=== PATIENT | male | born 1950 | race Caucasian/White ===

== ENCOUNTER → 2017-06-02 | Outpatient (CLI) | payer MEDICARE, BC ==
--- NOTE | 2017-06-02 12:40 | KCIC ---
Indication: Right hip pain. Time of exam 12:18 PM Femoral acetabular alignment is normal. The hip joint space is well maintained. The femoral head and neck are intact. No fractures are seen. IMPRESSION: No acute bony abnormality is detected. Electronically signed by: Austin Sandoval MD (06/02/2017 12:37 PM) [id number]
== END | disposition home or self-care (01) ==
LOC: KCIC 12:10
PROVIDERS: ATTEND Family Medicine
DX: M25.551 Pain in right hip (principal)
CPT/HCPCS: 73502

== ENCOUNTER 2019-10-15 20:20 | Inpatient (IN) | payer MEDICARE ==
[~2019-10-15] VITALS: Ht 170.2 cm; Wt 79.4 kg
--- NOTE | 2019-10-15 20:25 | NUR ---
Patient arrived as direct admit from [facility] Patient has Ng tube placed at in ER at [facility]. Patient has complaint of abdominal pain as well as some throat pain from the insertion of the NG tube. Pain rating is a 4 for the abdomen, and a 7 for his throat. Orders received from Dr. Shepard. Patient hooked back up suction. Patient call light was placed within reach and his bed was placed in the lowest position and locked. Will continue to monitor the patient at this time.
[2019-10-15 20:35] VITALS: BP 157/97
[2019-10-15] MEDS ORDERED: ACETAMINOPHEN 650 MG SUPP.RECT. PR PRN (21:00)
[2019-10-15] MEDS ORDERED: LABETALOL 20 MG/4 ML DISP.SYRIN. IVP PRN (21:00)
[2019-10-15] MEDS ORDERED: ONDANSETRON PF 4 MG/2 ML VIAL. IVP PRN (21:00)
[2019-10-15] MEDS ORDERED: BENZOCAINE ONE 20% MUCOSAL SPRAY. MM PRN (21:30)
[2019-10-15] MEDS: IV NORMAL SALINE 1000ML BAG 1,000 ML IV SCH (22:03)
[2019-10-15] MEDS: cefTRIAXone IV Push 1 GM VIAL. IVP SCH (22:04)
[2019-10-15] MEDS: FAMOTIDINE 20 MG/2 ML VIAL IVP SCH (22:05)
[2019-10-15] MEDS: fentaNYL PF VIAL 100 MCG/2 ML VIAL IVP PRN (22:05)
[2019-10-15] MEDS: AZITHROMYCIN 250 MG in IV NORMAL SALINE 250ML 250 ML IV SCH (22:06)
[2019-10-15] MEDS: ALBUTEROL SULFATE 2.5 MG/3 ML NEBU. NEB PRN (22:17)
[2019-10-15 23:14] VITALS: BP 159/93
[2019-10-16] MEDS: fentaNYL PF VIAL 100 MCG/2 ML VIAL IVP PRN ×7 (02:48→21:14)
[2019-10-16] MEDS: ALBUTEROL SULFATE 2.5 MG/3 ML NEBU. NEB PRN ×2 (03:00→07:40)
[2019-10-16 03:40] VITALS: BP 149/99
[2019-10-16 07:00] VITALS: BP 152/95
[2019-10-16] MEDS ORDERED: PHENOL ORAL SPRAY 177ML BOTTLE. PO PRN ×2 (07:45→08:00)
--- NOTE | 2019-10-16 08:53 | RAD ---
KUB 10/16/2019 7:38 AM INDICATION: Abdominal distention. NG placement COMPARISON: Pelvis radiograph 06/02/2017 TECHNIQUE: 2 views of abdomen are provided. FINDINGS/ IMPRESSION: 1. Nasogastric tube is identified with the side port below the level of the diaphragm. 2. Dilated large bowel loops are identified measuring up to 9.7 cm in the right colon. Left colon measures up to 6.8 cm. There may be pneumatosis coli within the sigmoid colon. Further evaluation with cross sectional imaging is recommended. Findings are concerning for large bowel obstruction. 3. Supine technique limits evaluation for free intraperitoneal air. 4. Dilated small bowel loops are present measuring up to 3.1 cm. 5. No suspicious osseous normality is identified. Visualized portions of the lungs demonstrate low lung volumes with bibasilar subsegmental atelectasis. Right hilar calcified lymphadenopathy is identified. FOR INTERNAL CODING PURPOSES Critical result: Findings discussed with the patient's nurse, Jocelyn, at 10/16/2019 8:49 AM. RESULT CODE: (C) Electronically signed by: Lynn Poole MD (10/16/2019 8:50 AM) [facility]
[2019-10-16] MEDS ORDERED: FLU VAX QS 2019-20 (36MOS+)/PF 0.5 ML SYRINGE. VAX IM ONE (09:00)
[2019-10-16] MEDS ORDERED: LABETALOL 20 MG/4 ML DISP.SYRIN. IVP PRN (09:15)
[2019-10-16 09:58] LABS: BASO % 0 % (0-3); EOS % 0 % (0-3); HEMATOCRIT 40.8 % (39.0-53.0); HEMOGLOBIN 13.3 g/dL (13.0-17.5); LYMPH # 0.5 x10^3/uL (1.0-4.8); LYMPH % 4 % (24-48); MEAN CORPUSCULAR HEMOGLOBIN 28 pg (25-35); MEAN CORPUSCULAR HGB CONC 33 g/dL (31-37); MEAN CORPUSCULAR VOLUME 85 fL (79-100); MONO # 1.9 x10^3/uL (0.0-1.1); MONO % 16 % (0-9); NEUT # 9.7 x10^3/uL (1.8-7.7); NEUT % 80 % (31-73); PLATELET COUNT 319 x10^3/uL (140-400); RED BLOOD COUNT 4.79 x10^6/uL (4.30-5.70); RED CELL DISTRIBUTION WIDTH 13.9 % (11.5-14.5)
[2019-10-16 10:00] LABS: CALCIUM 8.9 mg/dL (8.5-10.1); GFR 89.4; POTASSIUM 4.5 mmol/L (3.5-5.1)
[2019-10-16 10:06] LABS: ALBUMIN/GLOBULIN RATIO 0.8 (1.0-1.7); TOTAL BILIRUBIN 0.6 mg/dL (0.2-1.0)
[2019-10-16 10:18] LABS: PROTHROMBIN TIME PATIENT 14.1 SEC (11.7-14.0)
--- NOTE | 2019-10-16 10:33 | PDOC2 ---
CONSULT Date of Consult Date of Consult DATE: 10/16/19 TIME: 10:26 Reason for Consult Reason for Consult: colonic distention Referring Physician Referring Physician: SAM Identification/Chief Complaint Chief Complaint abdominal distention Source Source: Patient History of Present Illness Reason for Visit: Mr Ennis is an active 69 yo gentleman who looks younger than his stated age. He had not had a BM for four days and was told to use mag citrate which he did. He has had several loose stools since. Was seen in urgent care of abdominal distention and by CT there showed marked dilation of the colon proximal to the sigmoid. Plain films this AM confirm that finding. His last colonoscopy was "several years ago". His added that he "was told to come back in a year" for follow up. He is unaware of any family hx of colon cancer. Past Medical History Cardiovascular: No pertinent hx Pulmonary: No pertinent hx Past Surgical History Past Surgical History: No pertinent history Family History Family History: No Significant Social History No Drugs: None Lives: with Family Current Medications Current Medications Current Medications Acetaminophen (Tylenol Supp) 650 mg PRN Q4HRS PRN [place] TEMP OVER 100.4F OR MILD PAIN; Start 10/15/19 at 21:00 Albuterol Sulfate (Ventolin Neb Soln) 2.5 mg PRN Q4HRS PRN NEB SHORTNESS OF BREATH Last administered on 10/16/19at 07:40; Start 10/15/19 at 21:00; Stop 10/16/19 at 07:53; Status DC Sodium Chloride 1,000 ml @ 75 mls/hr [id number] IV Last administered on 10/15/19at 22:03; Start 10/15/19 at 22:00 Famotidine (Pepcid Vial) 20 mg QHS IVP Last administered on 10/15/19at 22:05; Start 10/15/19 at 21:00 Fentanyl Citrate (Fentanyl 2ml Vial) 50 mcg PRN Q2HR PRN IVP SEVERE PAIN 7-10 Last administered on 10/16/19at 10:21; Start 10/15/19 at 21:00 Ondansetron HCl (Zofran) 4 mg PRN Q6HRS PRN IVP NAUSEA/VOMITING 1ST CHOICE; Start 10/15/19 at 21:00 Labetalol HCl (Normodyne Iv Push) 10 mg PRN Q2HR PRN IVP HYPERTENSION; Start 10/15/19 at 21:00 Ceftriaxone Sodium (Rocephin) 1 gm Q24H IVP Last administered on 10/15/19at 22:04; Start 10/15/19 at 22:00 Azithromycin 250 mg/Sodium Chloride 250 ml @ 250 mls/hr Q24H IV Last administered on 10/15/19at 22:06; Start 10/15/19 at 22:00 Benzocaine (Hurricaine One) 1 spray PRN QID PRN MM PAIN Last administered on 10/15/19at 22:06; Start 10/15/19 at 21:30; Stop 10/16/19 at 07:46; Status DC Influenza Virus Vaccine Quadrival (Afluria Quad 2019-20 (3yr Up) Syringe) 0.5 ml ONCE ONCE VAX IM ; Start 10/16/19 at 09:00; Stop 10/16/19 at 09:01; Status DC Phenol (Chloraseptic) 1 spray PRN Q2HR PRN PO SORE THROAT; Start 10/16/19 at 07:45; Status Cancel Phenol (Chloraseptic) 1 spray PRN Q2HR PRN PO SORE THROAT; Start 10/16/19 at 08:00 Albuterol Sulfate (Ventolin Neb Soln) 2.5 mg Q4H NEB ; Start 10/16/19 at 12:00 Labetalol HCl (Normodyne Iv Push) 10 mg PRN Q2HR PRN IVP HYPERTENSION; Start 10/16/19 at 09:15 Allergies Allergies: Coded Allergies: No Known Drug Allergies (Unverified , 10/15/19) ROS Gastrointestinal: Yes Diarrhea, Yes Other (distention) Physical Exam General: Alert, Other (anxious, wanting NG out) HEENT: Atraumatic Lungs: Normal air movement Heart: Regular rate Abdomen: Other (markedly distended, tympanitic) Extremities: No clubbing Skin: Other (warm, dry) Vitals VITALS Vital Signs Date Time Temp Pulse Resp B/P (MAP) Pulse Ox O2 Delivery O2 Flow Rate FiO2 10/16/19 10:21 Nasal Cannula 2.0 10/16/19 07:42 93 10/16/19 07:00 98.0 88 18 152/95 (114) 98.0 Labs Labs Laboratory Tests Test 10/16/19 09:35 Sodium Level 137 mmol/L (136-145) Potassium Level 4.5 mmol/L (3.5-5.1) Chloride Level 99 mmol/L (98-107) Carbon Dioxide Level 23 mmol/L (21-32) Anion Gap 15 (6-14) Blood Urea Nitrogen 28 mg/dL (8-26) Creatinine 1.0 mg/dL (0.7-1.3) Estimated GFR (Cockcroft-Gault) 89.4 BUN/Creatinine Ratio 28 (6-20) Glucose Level 123 mg/dL (70-99) Calcium Level 8.9 mg/dL (8.5-10.1) Total Bilirubin 0.6 mg/dL (0.2-1.0) Aspartate Amino Transf (AST/SGOT) 27 U/L (15-37) Alanine Aminotransferase (ALT/SGPT) 27 U/L (16-63) Alkaline Phosphatase 70 U/L (46-116) Total Protein 7.0 g/dL (6.4-8.2) Albumin 3.0 g/dL (3.4-5.0) Albumin/Globulin Ratio 0.8 (1.0-1.7) Laboratory Tests Test 10/16/19 09:35 Sodium Level 137 mmol/L (136-145) Potassium Level 4.5 mmol/L (3.5-5.1) Chloride Level 99 mmol/L (98-107) Carbon Dioxide Level 23 mmol/L (21-32) Anion Gap 15 (6-14) Blood Urea Nitrogen 28 mg/dL (8-26) Creatinine 1.0 mg/dL (0.7-1.3) Estimated GFR (Cockcroft-Gault) 89.4 BUN/Creatinine Ratio 28 (6-20) Glucose Level 123 mg/dL (70-99) Calcium Level 8.9 mg/dL (8.5-10.1) Total Bilirubin 0.6 mg/dL (0.2-1.0) Aspartate Amino Transf (AST/SGOT) 27 U/L (15-37) Alanine Aminotransferase (ALT/SGPT) 27 U/L (16-63) Alkaline Phosphatase 70 U/L (46-116) Total Protein 7.0 g/dL (6.4-8.2) Albumin 3.0 g/dL (3.4-5.0) Albumin/Globulin Ratio 0.8 (1.0-1.7) Images Images plain films from this AM are reviewed CT from urgent care has been requested Assessment/Plan Assessment/Plan colonic distention with concern for distal colonic obstruction recommend limited contrast enema, no prep, to assess possible sigmoid process creating obstruction d/w Mr Ennis and his questions answered await X rays Thanks for consult MNOIQUE GAO MD Oct 16, 2019 10:33
[2019-10-16] MEDS ORDERED: CONTRAST GIVEN. MC PRN (10:45)
[2019-10-16] MEDS ORDERED: IOHEXOL 300 MG/ML 100ML VIAL. PR ONE (10:45)
--- NOTE | 2019-10-16 10:50 | PDOC1 ---
History and Physical Date of Admission Date of Admission DATE: 10/16/19 TIME: 10:45 Identification/Chief Complaint Chief Complaint Acute abd distention Source Source: Caregiver, Chart review, Patient History of Present Illness History of Present Illness 69 y.o prev healthy, just hx of gout, no signif abd surgeries in the past, acute onset bloatedness and distention, maybe was constipated prior, HE IS VERY DISTENDED on clinical exam,HE came from [facility], CT scan there showed ileus, high grade bowel obstruction, colonic mass/malignancy could not be excluded (per ER MD relay to me), Kaylee Box, [employer] communications lead, requests to cloud the images. -kaylee RN and Secreatry of the unit, at bedside, naturally concerned, pt has SOA bec of the distention, NGT in place but is not draining anything much, HE REMAINS very distended Past Medical History Cardiovascular: No pertinent hx Pulmonary: No pertinent hx Musculoskeletal: Other (gout) Past Surgical History Past Surgical History: No pertinent history Family History Family History: No Significant Social History Smoke: No ALCOHOL: none Drugs: None Current Medications Current Medications Current Medications Acetaminophen (Tylenol Supp) 650 mg PRN Q4HRS PRN [place] TEMP OVER 100.4F OR MILD PAIN; Start 10/15/19 at 21:00 Albuterol Sulfate (Ventolin Neb Soln) 2.5 mg PRN Q4HRS PRN NEB SHORTNESS OF BREATH Last administered on 10/16/19at 07:40; Start 10/15/19 at 21:00; Stop 10/16/19 at 07:53; Status DC Sodium Chloride 1,000 ml @ 75 mls/hr [id number] IV Last administered on 10/15/19at 22:03; Start 10/15/19 at 22:00 Famotidine (Pepcid Vial) 20 mg QHS IVP Last administered on 10/15/19at 22:05; Start 10/15/19 at 21:00 Fentanyl Citrate (Fentanyl 2ml Vial) 50 mcg PRN Q2HR PRN IVP SEVERE PAIN 7-10 Last administered on 10/16/19at 10:21; Start 10/15/19 at 21:00 Ondansetron HCl (Zofran) 4 mg PRN Q6HRS PRN IVP NAUSEA/VOMITING 1ST CHOICE; Start 10/15/19 at 21:00 Labetalol HCl (Normodyne Iv Push) 10 mg PRN Q2HR PRN IVP HYPERTENSION; Start 10/15/19 at 21:00 Ceftriaxone Sodium (Rocephin) 1 gm Q24H IVP Last administered on 10/15/19at 22:04; Start 10/15/19 at 22:00 Azithromycin 250 mg/Sodium Chloride 250 ml @ 250 mls/hr Q24H IV Last administered on 10/15/19at 22:06; Start 10/15/19 at 22:00 Benzocaine (Hurricaine One) 1 spray PRN QID PRN MM PAIN Last administered on 10/15/19at 22:06; Start 10/15/19 at 21:30; Stop 10/16/19 at 07:46; Status DC Influenza Virus Vaccine Quadrival (Afluria Quad 2019-20 (3yr Up) Syringe) 0.5 ml ONCE ONCE VAX IM ; Start 10/16/19 at 09:00; Stop 10/16/19 at 09:01; Status DC Phenol (Chloraseptic) 1 spray PRN Q2HR PRN PO SORE THROAT; Start 10/16/19 at 07:45; Status Cancel Phenol (Chloraseptic) 1 spray PRN Q2HR PRN PO SORE THROAT; Start 10/16/19 at 08:00 Albuterol Sulfate (Ventolin Neb Soln) 2.5 mg Q4H NEB ; Start 10/16/19 at 12:00 Labetalol HCl (Normodyne Iv Push) 10 mg PRN Q2HR PRN IVP HYPERTENSION; Start 10/16/19 at 09:15; Stop 10/16/19 at 10:40; Status DC Iohexol (Omnipaque 300 Mg/ml) 400 ml 1X ONCE RI ; Start 10/16/19 at 10:45; Stop 10/16/19 at 10:46 Info (CONTRAST GIVEN -- Rx MONITORING) 1 each PRN DAILY PRN MC SEE COMMENTS; Start 10/16/19 at 10:45; Stop 10/18/19 at 10:44 Allergies Allergies: Coded Allergies: No Known Drug Allergies (Unverified , 10/15/19) ROS Review of System soa sec to abd distention, no emesis, all esle is neg Physical Exam General: mild distress, Other (NGT in place) HEENT: Atraumatic, PERRLA, EOMI Heart: S1S2, no thrills, no rubs, no gallops, no murmurs, other (sinus tachy) Abdomen: Other (distended tympanitic, hypoactive bS almost absent) Male Genitals Exam: normal genitalia, normal prostate Rectal Exam: not examined PELVIC: Nml ext genitalia Extremities: No clubbing, No cyanosis, No edema, Normal pulses, No tenderness/swelling Skin: No rashes, No breakdown, No significant lesion Neuro: Normal gait, Normal speech, Strength at 5/5 X4 ext, Normal tone, Sens ation intact, Cranial nerves 3-12 NL, Reflexes 2+ Psych/Mental Status: Mental status NL, Mood NL Vitals Vitals Vital Signs Date Time Temp Pulse Resp B/P (MAP) Pulse Ox O2 Delivery O2 Flow Rate FiO2 10/16/19 10:21 Nasal Cannula 2.0 10/16/19 07:42 93 10/16/19 07:00 98.0 88 18 152/95 (114) 98.0 Labs Labs Laboratory Tests Test 10/16/19 09:35 White Blood Count 12.0 x10^3/uL (4.0-11.0) Red Blood Count 4.79 x10^6/uL (4.30-5.70) Hemoglobin 13.3 g/dL (13.0-17.5) Hematocrit 40.8 % (39.0-53.0) Mean Corpuscular Volume 85 fL (79-100) Mean Corpuscular Hemoglobin 28 pg (25-35) Mean Corpuscular Hemoglobin Concent 33 g/dL (31-37) Red Cell Distribution Width 13.9 % (11.5-14.5) Platelet Count 319 x10^3/uL (140-400) Neutrophils (%) (Auto) 80 % (31-73) Lymphocytes (%) (Auto) 4 % (24-48) Monocytes (%) (Auto) 16 % (0-9) Eosinophils (%) (Auto) 0 % (0-3) Basophils (%) (Auto) 0 % (0-3) Neutrophils # (Auto) 9.7 x10^3/uL (1.8-7.7) Lymphocytes # (Auto) 0.5 x10^3/uL (1.0-4.8) Monocytes # (Auto) 1.9 x10^3/uL (0.0-1.1) Eosinophils # (Auto) 0.0 x10^3/uL (0.0-0.7) Basophils # (Auto) 0.0 x10^3/uL (0.0-0.2) Prothrombin Time 14.1 SEC (11.7-14.0) Prothromb Time International Ratio 1.1 (0.8-1.1) Sodium Level 137 mmol/L (136-145) Potassium Level 4.5 mmol/L (3.5-5.1) Chloride Level 99 mmol/L (98-107) Carbon Dioxide Level 23 mmol/L (21-32) Anion Gap 15 (6-14) Blood Urea Nitrogen 28 mg/dL (8-26) Creatinine 1.0 mg/dL (0.7-1.3) Estimated GFR (Cockcroft-Gault) 89.4 BUN/Creatinine Ratio 28 (6-20) Glucose Level 123 mg/dL (70-99) Calcium Level 8.9 mg/dL (8.5-10.1) Total Bilirubin 0.6 mg/dL (0.2-1.0) Aspartate Amino Transf (AST/SGOT) 27 U/L (15-37) Alanine Aminotransferase (ALT/SGPT) 27 U/L (16-63) Alkaline Phosphatase 70 U/L (46-116) Total Protein 7.0 g/dL (6.4-8.2) Albumin 3.0 g/dL (3.4-5.0) Albumin/Globulin Ratio 0.8 (1.0-1.7) Laboratory Tests Test 10/16/19 09:35 White Blood Count 12.0 x10^3/uL (4.0-11.0) Red Blood Count 4.79 x10^6/uL (4.30-5.70) Hemoglobin 13.3 g/dL (13.0-17.5) Hematocrit 40.8 % (39.0-53.0) Mean Corpuscular Volume 85 fL (79-100) Mean Corpuscular Hemoglobin 28 pg (25-35) Mean Corpuscular Hemoglobin Concent 33 g/dL (31-37) Red Cell Distribution Width 13.9 % (11.5-14.5) Platelet Count 319 x10^3/uL (140-400) Neutrophils (%) (Auto) 80 % (31-73) Lymphocytes (%) (Auto) 4 % (24-48) Monocytes (%) (Auto) 16 % (0-9) Eosinophils (%) (Auto) 0 % (0-3) Basophils (%) (Auto) 0 % (0-3) Neutrophils # (Auto) 9.7 x10^3/uL (1.8-7.7) Lymphocytes # (Auto) 0.5 x10^3/uL (1.0-4.8) Monocytes # (Auto) 1.9 x10^3/uL (0.0-1.1) Eosinophils # (Auto) 0.0 x10^3/uL (0.0-0.7) Basophils # (Auto) 0.0 x10^3/uL (0.0-0.2) Prothrombin Time 14.1 SEC (11.7-14.0) Prothromb Time International Ratio 1.1 (0.8-1.1) Sodium Level 137 mmol/L (136-145) Potassium Level 4.5 mmol/L (3.5-5.1) Chloride Level 99 mmol/L (98-107) Carbon Dioxide Level 23 mmol/L (21-32) Anion Gap 15 (6-14) Blood Urea Nitrogen 28 mg/dL (8-26) Creatinine 1.0 mg/dL (0.7-1.3) Estimated GFR (Cockcroft-Gault) 89.4 BUN/Creatinine Ratio 28 (6-20) Glucose Level 123 mg/dL (70-99) Calcium Level 8.9 mg/dL (8.5-10.1) Total Bilirubin 0.6 mg/dL (0.2-1.0) Aspartate Amino Transf (AST/SGOT) 27 U/L (15-37) Alanine Aminotransferase (ALT/SGPT) 27 U/L (16-63) Alkaline Phosphatase 70 U/L (46-116) Total Protein 7.0 g/dL (6.4-8.2) Albumin 3.0 g/dL (3.4-5.0) Albumin/Globulin Ratio 0.8 (1.0-1.7) VTE Prophylaxis Ordered VTE Prophylaxis Devices: Yes VTE Pharmacological Prophylaxi: Yes Assessment/Plan Assessment/Plan SEVERE ILEUS< HIGH GRADE OBSTRUCTION, COLONIC MASS CANT BE RULED OUT - GI, GS, NPO, NGT, IVF, PPI IV< CLOUD CT images from [facility] - kaylee RECENT CONSTIPATION FULL CODE HX GOUT NO signif abd hx, no signif past medical hx DW Dr Box, RN barbi will contemplate transfer tele bed COOKIE FAY MD Oct 16, 2019 10:50
[2019-10-16 11:00] VITALS: BP 162/98
[2019-10-16] MEDS: ALBUTEROL SULFATE 2.5 MG/3 ML NEBU. NEB SCH ×4 (11:27→23:28)
[2019-10-16 11:39] LABS: % BANDS 8 % (0-9); % LYMPHS 5 % (24-48); % MONOS 6 % (0-10); % SEGS 81 % (35-66); PLT ESTIMATE ADEQUATE (ADEQUATE)
--- NOTE | 2019-10-16 11:41 | RAD ---
Limited Gastrografin enema HISTORY: Possible distal sigmoid colon obstruction. PROCEDURE: Study using Gastrografin and limited to the sigmoid colon only was requested. FINDINGS: There is prompt filling of the rectum and sigmoid colon with barium. The patient was rotated into right lateral, left lateral, supine and prone positions with fluoroscopic observation, and no sigmoid colon occlusion or fixed narrowing is seen. Postprocedure abdominal radiograph demonstrates mild extension of contrast into the descending colon. Severe gaseous distention of large and small bowel loops throughout the visualized abdomen. IMPRESSION: No evidence of sigmoid colon occlusion. 6 spot images were obtained. Fluoroscopy time: 1.8 minutes. Electronically signed by: Fazal Wang MD (10/16/2019 11:38 AM) [facility]
[2019-10-16] MEDS: IV NORMAL SALINE 1000ML BAG 1,000 ML IV SCH ×2 (11:54→19:09)
[2019-10-16 15:00] VITALS: BP 153/99
--- NOTE | 2019-10-16 15:09 | PDOC2 ---
CONSULT Date of Consult Date of Consult DATE: 10/16/19 TIME: 15:01 Identification/Chief Complaint Chief Complaint Abdominal distention, abnormal CT scan History of Present Illness Reason for Visit: This is a 69-year-old gentleman who presents with a 4 day history of consti pation, no bowel movement. This is associated with abdominal distention. He took some magnesium citrate but did not have relief of his symptoms and went to [facility] urgent care/[facility] here in this area where he was assessed. X-ray imaging was suspicious for ileus or even a bowel obstruction. CT scan revealed some thickening in the sigmoid that could not be excluded as a stricture or mass and proximal to that dilation of the colon and small bowel. An NG tube was placed with some fluid being removed and then he was transferred here for further evaluation. Prior to the onset of the symptoms, he denies any bowel changes and has been fairly regular with his bowel pattern. He denies any rectal bleeding and describes a negative colonoscopy several years ago except for some polyps which were removed. Curiously he was told he needed to have a repeat colonoscopy in one year but did not follow through on that recommendation. Don't have those records. He denies any nausea or vomiting but does describe abdominal distention and discomfort. He denies fever or chills. He denies any new medications. There is no history of bowel difficulties in the past. Past Medical History Cardiovascular: No pertinent hx Pulmonary: No pertinent hx Musculoskeletal: Other (gout) Past Surgical History Past Surgical History: No pertinent history Family History Family History: No Significant Social History No ALCOHOL: none Drugs: None Lives: with Family Current Medications Current Medications Current Medications Acetaminophen (Tylenol Supp) 650 mg PRN Q4HRS PRN TN TEMP OVER 100.4F OR MILD PAIN; Start 10/15/19 at 21:00 Albuterol Sulfate (Ventolin Neb Soln) 2.5 mg PRN Q4HRS PRN NEB SHORTNESS OF BREATH Last administered on 10/16/19at 07:40; Start 10/15/19 at 21:00; Stop 10/16/19 at 07:53; Status DC Sodium Chloride 1,000 ml @ 75 mls/hr [id number] IV Last administered on 10/16/19at 11:54; Start 10/15/19 at 22:00 Famotidine (Pepcid Vial) 20 mg QHS IVP Last administered on 10/15/19at 22:05; Start 10/15/19 at 21:00 Fentanyl Citrate (Fentanyl 2ml Vial) 50 mcg PRN Q2HR PRN IVP SEVERE PAIN 7-10 Last administered on 10/16/19at 14:14; Start 10/15/19 at 21:00 Ondansetron HCl (Zofran) 4 mg PRN Q6HRS PRN IVP NAUSEA/VOMITING 1ST CHOICE; Start 10/15/19 at 21:00 Labetalol HCl (Normodyne Iv Push) 10 mg PRN Q2HR PRN IVP HYPERTENSION; Start 10/15/19 at 21:00 Ceftriaxone Sodium (Rocephin) 1 gm Q24H IVP Last administered on 10/15/19at 22:04; Start 10/15/19 at 22:00 Azithromycin 250 mg/Sodium Chloride 250 ml @ 250 mls/hr Q24H IV Last administered on 10/15/19at 22:06; Start 10/15/19 at 22:00 Benzocaine (Hurricaine One) 1 spray PRN QID PRN MM PAIN Last administered on 10/15/19at 22:06; Start 10/15/19 at 21:30; Stop 10/16/19 at 07:46; Status DC Influenza Virus Vaccine Quadrival (Afluria Quad 2019-20 (3yr Up) Syringe) 0.5 ml ONCE ONCE VAX IM ; Start 10/16/19 at 09:00; Stop 10/16/19 at 09:01; Status DC Phenol (Chloraseptic) 1 spray PRN Q2HR PRN PO SORE THROAT; Start 10/16/19 at 07:45; Status Cancel Phenol (Chloraseptic) 1 spray PRN Q2HR PRN PO SORE THROAT; Start 10/16/19 at 08:00 Albuterol Sulfate (Ventolin Neb Soln) 2.5 mg Q4H NEB Last administered on at 11:27; Start 10/16/19 at 12:00 Labetalol HCl (Normodyne Iv Push) 10 mg PRN Q2HR PRN IVP HYPERTENSION; Start 10/16/19 at 09:15; Stop 10/16/19 at 10:40; Status DC Iohexol (Omnipaque 300 Mg/ml) 400 ml 1X ONCE TN Last administered on 10/16/19at 10:45; Start 10/16/19 at 10:45; Stop 10/16/19 at 10:46; Status DC Info (CONTRAST GIVEN -- Rx MONITORING) 1 each PRN DAILY PRN MC SEE COMMENTS; Start 10/16/19 at 10:45; Stop 10/18/19 at 10:44 Allergies Allergies: Coded Allergies: No Known Drug Allergies (Unverified , 10/15/19) Physical Exam General: Alert, Oriented X3, Cooperative HEENT: Atraumatic Lungs: Clear to auscultation Heart: Regular rate, Normal S1, Normal S2 Abdomen: No tenderness, No hepatosplenomegaly, Other (decreased, hardly any bowel sounds. Moderate distention with minimal tympany and no point tenderness) Extremities: No clubbing, No cyanosis Skin: No rashes Psych/Mental Status: Mental status NL Vitals VITALS Vital Signs Date Time Temp Pulse Resp B/P (MAP) Pulse Ox O2 Delivery O2 Flow Rate FiO2 10/16/19 14:14 Nasal Cannula 2.0 10/16/19 11:28 92 10/16/19 11:00 99.2 90 18 162/98 (119) 99.2 Labs Labs Laboratory Tests Test 10/16/19 09:35 White Blood Count 12.0 x10^3/uL (4.0-11.0) Red Blood Count 4.79 x10^6/uL (4.30-5.70) Hemoglobin 13.3 g/dL (13.0-17.5) Hematocrit 40.8 % (39.0-53.0) Mean Corpuscular Volume 85 fL (79-100) Mean Corpuscular Hemoglobin 28 pg (25-35) Mean Corpuscular Hemoglobin Concent 33 g/dL (31-37) Red Cell Distribution Width 13.9 % (11.5-14.5) Platelet Count 319 x10^3/uL (140-400) Neutrophils (%) (Auto) 80 % (31-73) Lymphocytes (%) (Auto) 4 % (24-48) Monocytes (%) (Auto) 16 % (0-9) Eosinophils (%) (Auto) 0 % (0-3) Basophils (%) (Auto) 0 % (0-3) Neutrophils # (Auto) 9.7 x10^3/uL (1.8-7.7) Lymphocytes # (Auto) 0.5 x10^3/uL (1.0-4.8) Monocytes # (Auto) 1.9 x10^3/uL (0.0-1.1) Eosinophils # (Auto) 0.0 x10^3/uL (0.0-0.7) Basophils # (Auto) 0.0 x10^3/uL (0.0-0.2) Segmented Neutrophils % 81 % (35-66) Band Neutrophils % 8 % (0-9) Lymphocytes % 5 % (24-48) Monocytes % 6 % (0-10) Platelet Estimate Adequate (ADEQUATE) Prothrombin Time 14.1 SEC (11.7-14.0) Prothromb Time International Ratio 1.1 (0.8-1.1) Sodium Level 137 mmol/L (136-145) Potassium Level 4.5 mmol/L (3.5-5.1) Chloride Level 99 mmol/L (98-107) Carbon Dioxide Level 23 mmol/L (21-32) Anion Gap 15 (6-14) Blood Urea Nitrogen 28 mg/dL (8-26) Creatinine 1.0 mg/dL (0.7-1.3) Estimated GFR (Cockcroft-Gault) 89.4 BUN/Creatinine Ratio 28 (6-20) Glucose Level 123 mg/dL (70-99) Calcium Level 8.9 mg/dL (8.5-10.1) Total Bilirubin 0.6 mg/dL (0.2-1.0) Aspartate Amino Transf (AST/SGOT) 27 U/L (15-37) Alanine Aminotransferase (ALT/SGPT) 27 U/L (16-63) Alkaline Phosphatase 70 U/L (46-116) Total Protein 7.0 g/dL (6.4-8.2) Albumin 3.0 g/dL (3.4-5.0) Albumin/Globulin Ratio 0.8 (1.0-1.7) Laboratory Tests Test 10/16/19 09:35 White Blood Count 12.0 x10^3/uL (4.0-11.0) Red Blood Count 4.79 x10^6/uL (4.30-5.70) Hemoglobin 13.3 g/dL (13.0-17.5) Hematocrit 40.8 % (39.0-53.0) Mean Corpuscular Volume 85 fL (79-100) Mean Corpuscular Hemoglobin 28 pg (25-35) Mean Corpuscular Hemoglobin Concent 33 g/dL (31-37) Red Cell Distribution Width 13.9 % (11.5-14.5) Platelet Count 319 x10^3/uL (140-400) Neutrophils (%) (Auto) 80 % (31-73) Lymphocytes (%) (Auto) 4 % (24-48) Monocytes (%) (Auto) 16 % (0-9) Eosinophils (%) (Auto) 0 % (0-3) Basophils (%) (Auto) 0 % (0-3) Neutrophils # (Auto) 9.7 x10^3/uL (1.8-7.7) Lymphocytes # (Auto) 0.5 x10^3/uL (1.0-4.8) Monocytes # (Auto) 1.9 x10^3/uL (0.0-1.1) Eosinophils # (Auto) 0.0 x10^3/uL (0.0-0.7) Basophils # (Auto) 0.0 x10^3/uL (0.0-0.2) Segmented Neutrophils % 81 % (35-66) Band Neutrophils % 8 % (0-9) Lymphocytes % 5 % (24-48) Monocytes % 6 % (0-10) Platelet Estimate Adequate (ADEQUATE) Prothrombin Time 14.1 SEC (11.7-14.0) Prothromb Time International Ratio 1.1 (0.8-1.1) Sodium Level 137 mmol/L (136-145) Potassium Level 4.5 mmol/L (3.5-5.1) Chloride Level 99 mmol/L (98-107) Carbon Dioxide Level 23 mmol/L (21-32) Anion Gap 15 (6-14) Blood Urea Nitrogen 28 mg/dL (8-26) Creatinine 1.0 mg/dL (0.7-1.3) Estimated GFR (Cockcroft-Gault) 89.4 BUN/Creatinine Ratio 28 (6-20) Glucose Level 123 mg/dL (70-99) Calcium Level 8.9 mg/dL (8.5-10.1) Total Bilirubin 0.6 mg/dL (0.2-1.0) Aspartate Amino Transf (AST/SGOT) 27 U/L (15-37) Alanine Aminotransferase (ALT/SGPT) 27 U/L (16-63) Alkaline Phosphatase 70 U/L (46-116) Total Protein 7.0 g/dL (6.4-8.2) Albumin 3.0 g/dL (3.4-5.0) Albumin/Globulin Ratio 0.8 (1.0-1.7) Images Images CT scan at [facility] suggest a colonic ileus or possible large bowel obstruction with some narrowing or spasm in the sigmoid region. No evidence for sigmoid volvulus. KUB and barium enema here revealed no evidence for sigmoid stricture or mass. Assessment/Plan Assessment/Plan Abdominal distention with constipation. Imaging at [facility] and here suggest colonic ileus and some concern about bowel obstruction. Fortunately barium enema today revealed no evidence for sigmoid stricture, mass or obstruction. In fact after the barium enema he had a small bowel movement but continues to have abdominal distention. There is no tenderness in any specific spot and he's had no vomiting. An NG tube has been placed but the output has been limited. No recent change in medications or clinical situation that might increase his risk for ileus. As for his present complaints is not clear. A colonoscopy several years ago with a polyp removed and then a recommendation to return in one year is curious. Although no mass or lesion was seen on barium study today the possibility that he may have an occult process cannot be excluded. However I doubt that this would explain the sudden onset of obstructive symptoms this week Family is anxious for us to review all his films and to make clinical decisions. I discussed this case with Dr. Box and reviewed the barium enema results with him. Initially he was concerned that surgical intervention may be required but now is holding off on any surgical options. Plan: Continue NG tube decompression. If very little is coming out of the NG tube, may consider trying magnesium citrate through the tube and even an enema as well. Monitor clinical progress and laboratories. Once his ileus improves will consider colonoscopy. MAU REYNOSO MD Oct 16, 2019 15:09
[2019-10-16] MEDS ORDERED: MAGNESIUM CITRATE 296 ML SOLUTION. NG ONE (18:45)
[2019-10-16 19:00] VITALS: BP 159/18
[2019-10-16] MEDS: cefTRIAXone IV Push 1 GM VIAL. IVP SCH (21:13)
[2019-10-16] MEDS: FAMOTIDINE 20 MG/2 ML VIAL IVP SCH (21:13)
[2019-10-16] MEDS: AZITHROMYCIN 250 MG in IV NORMAL SALINE 250ML 250 ML IV SCH (21:14)
[2019-10-16 23:00] VITALS: BP 154/99
--- NOTE | 2019-10-16 23:31 | NUR ---
No BM at this time despite Mag citrate , pt informed about Dr Kulkarni's order to do tap water enema, patient refused at this time ,he wants to take pain med and see if that will help him breathe ,and stated he will call me when he is ready for enema, RN re-educated pt about POC and to reconsider Tap water enema that may help him breathe better.Patient still refused enema, will monitor pt.
[2019-10-17] VITALS (7 sets, daily range): BP systolic 139–166; BP diastolic 76–101
[2019-10-17] MEDS: fentaNYL PF VIAL 100 MCG/2 ML VIAL IVP PRN ×8 (01:26→23:30)
--- NOTE | 2019-10-17 02:26 | NUR ---
0020 pt call RN ,ready for his tap water enema. no BM noted in after but plenty of gas/flatus came out, abdominal distension subsided ,pt stated some relieved.
[2019-10-17] MEDS: ALBUTEROL SULFATE 2.5 MG/3 ML NEBU. NEB SCH ×5 (03:15→19:41)
--- NOTE | 2019-10-17 07:06 | NUR ---
NGT clamped all night ,no nausea/no vomiting .
[2019-10-17] MEDS: IV NORMAL SALINE 1000ML BAG 1,000 ML IV SCH ×2 (07:11→16:47)
--- NOTE | 2019-10-17 07:22 | PDOC ---
GI PROGRESS NOTES Date Date/Time DATE: 10/17/19 TIME: 07:17 Subjective Subjective Small amount of liquid and stool yesterday after enema. We gave him magnesium citrate last night with some distention but no obvious bowel effects. No nausea or vomiting. Objective Vitals Vital Signs Date Time Temp Pulse Resp B/P (MAP) Pulse Ox O2 Delivery O2 Flow Rate FiO2 10/17/19 07:10 Nasal Cannula 2.0 10/17/19 07:07 94 Nasal Cannula 2.0 10/17/19 06:24 20 95 Nasal Cannula 1.0 10/17/19 04:31 20 95 Nasal Cannula 1.0 10/17/19 04:27 106 166/92 10/17/19 03:15 Room Air 10/17/19 03:00 98.5 106 18 166/92 (116) 95 Nasal Cannula 1.0 98.5 10/17/19 01:56 20 Nasal Cannula 10/17/19 01:26 20 94 Nasal Cannula 1.0 10/16/19 23:30 94 Room Air 10/16/19 23:00 97.7 112 18 154/99 (117) 94 Nasal Cannula 1.0 97.7 10/16/19 21:44 20 93 Nasal Cannula 1.0 10/16/19 21:14 20 93 Nasal Cannula 1.0 10/16/19 20:15 93 Room Air 10/16/19 20:00 Nasal Cannula 2.0 10/16/19 19:00 97.5 111 18 159/18 (65) 93 Nasal Cannula 1.0 97.5 10/16/19 16:56 Nasal Cannula 2.0 10/16/19 16:26 Nasal Cannula 2.0 10/16/19 15:53 92 Room Air 10/16/19 15:00 98.6 107 18 153/99 (117) 92 Nasal Cannula 0.5 98.6 10/16/19 14:44 Nasal Cannula 2.0 10/16/19 14:14 Nasal Cannula 2.0 10/16/19 13:23 Nasal Cannula 2.0 10/16/19 12:25 Room Air 10/16/19 11:53 Nasal Cannula 2.0 10/16/19 11:28 92 Nasal Cannula 2.0 10/16/19 11:00 99.2 90 18 162/98 (119) 92 Nasal Cannula 2.0 99.2 10/16/19 10:51 Room Air 10/16/19 10:21 Nasal Cannula 2.0 10/16/19 07:43 Nasal Cannula 2.0 10/16/19 07:42 93 Nasal Cannula 2.0 10/16/19 07:28 Nasal Cannula 2.0 Labs Labs Laboratory Tests Test 10/16/19 09:35 White Blood Count 12.0 x10^3/uL (4.0-11.0) Red Blood Count 4.79 x10^6/uL (4.30-5.70) Hemoglobin 13.3 g/dL (13.0-17.5) Hematocrit 40.8 % (39.0-53.0) Mean Corpuscular Volume 85 fL (79-100) Mean Corpuscular Hemoglobin 28 pg (25-35) Mean Corpuscular Hemoglobin Concent 33 g/dL (31-37) Red Cell Distribution Width 13.9 % (11.5-14.5) Platelet Count 319 x10^3/uL (140-400) Neutrophils (%) (Auto) 80 % (31-73) Lymphocytes (%) (Auto) 4 % (24-48) Monocytes (%) (Auto) 16 % (0-9) Eosinophils (%) (Auto) 0 % (0-3) Basophils (%) (Auto) 0 % (0-3) Neutrophils # (Auto) 9.7 x10^3/uL (1.8-7.7) Lymphocytes # (Auto) 0.5 x10^3/uL (1.0-4.8) Monocytes # (Auto) 1.9 x10^3/uL (0.0-1.1) Eosinophils # (Auto) 0.0 x10^3/uL (0.0-0.7) Basophils # (Auto) 0.0 x10^3/uL (0.0-0.2) Segmented Neutrophils % 81 % (35-66) Band Neutrophils % 8 % (0-9) Lymphocytes % 5 % (24-48) Monocytes % 6 % (0-10) Platelet Estimate Adequate (ADEQUATE) Prothrombin Time 14.1 SEC (11.7-14.0) Prothromb Time International Ratio 1.1 (0.8-1.1) Sodium Level 137 mmol/L (136-145) Potassium Level 4.5 mmol/L (3.5-5.1) Chloride Level 99 mmol/L (98-107) Carbon Dioxide Level 23 mmol/L (21-32) Anion Gap 15 (6-14) Blood Urea Nitrogen 28 mg/dL (8-26) Creatinine 1.0 mg/dL (0.7-1.3) Estimated GFR (Cockcroft-Gault) 89.4 BUN/Creatinine Ratio 28 (6-20) Glucose Level 123 mg/dL (70-99) Calcium Level 8.9 mg/dL (8.5-10.1) Total Bilirubin 0.6 mg/dL (0.2-1.0) Aspartate Amino Transf (AST/SGOT) 27 U/L (15-37) Alanine Aminotransferase (ALT/SGPT) 27 U/L (16-63) Alkaline Phosphatase 70 U/L (46-116) Total Protein 7.0 g/dL (6.4-8.2) Albumin 3.0 g/dL (3.4-5.0) Albumin/Globulin Ratio 0.8 (1.0-1.7) Physical Exam Physical Exam Chest clear Abdomen soft but distended, no point tenderness or rebound. Bowel sounds are decreased but present. Assessment Assessment Colonic ileus. Acute onset several days ago without obvious cause. The scan was concerning for sigmoid stricture or mass but ruled out by limited barium enema. Now presentation more consistent with colonic ileus Plan Plan Check Xrays today d/c NGT add relistor add dulcolax prn enema later today if no BM plan colonoscopy tomorrow- with limited bowel prep as tolerated later today MAU REYNOSO MD Oct 17, 2019 07:21
[2019-10-17] MEDS ORDERED: METHYLNALTREXONE 12 MG/0.6 ML VIAL. SQ ONE (07:30)
[2019-10-17] MEDS: POLYETHYLENE GLYCOL 3350 17 GM PACKET. PO SCH (07:57)
[2019-10-17 09:14] LABS: BASO % 0 % (0-3); EOS % 0 % (0-3); HEMATOCRIT 40.2 % (39.0-53.0); HEMOGLOBIN 12.9 g/dL (13.0-17.5); LYMPH # 0.6 x10^3/uL (1.0-4.8); LYMPH % 4 % (24-48); MEAN CORPUSCULAR HEMOGLOBIN 27 pg (25-35); MEAN CORPUSCULAR HGB CONC 32 g/dL (31-37); MEAN CORPUSCULAR VOLUME 85 fL (79-100); MONO # 2.1 x10^3/uL (0.0-1.1); MONO % 14 % (0-9); NEUT # 11.8 x10^3/uL (1.8-7.7); NEUT % 82 % (31-73); PLATELET COUNT 370 x10^3/uL (140-400); RED BLOOD COUNT 4.73 x10^6/uL (4.30-5.70); RED CELL DISTRIBUTION WIDTH 13.9 % (11.5-14.5); WHITE BLOOD COUNT 14.4 x10^3/uL (4.0-11.0)
--- NOTE | 2019-10-17 09:24 | PDOC ---
PROGRESS NOTES Chief Complaint Chief Complaint SEVERE ILEUS< HIGH GRADE OBSTRUCTION, COLONIC MASS CANT BE RULED OUT - neg barium enema study RECENT CONSTIPATION FULL CODE HX GOUT NO signif abd hx, no signif past medical hx History of Present Illness History of Present Illness still bloated was very concerned but after my discussion seemed to be more at ease - showed her Marium reports NO BM yet despite enema last night by GI Started on liq diet by GI WBC 12, has Rt lung PNA on CXR at [facility] on CAP coverage NGT out today 10.17.2019 PLAN: C scope tmr NPO post MN IV abx.,may ambulate enema later NPO post MN for c scope dw Dr Box, trial gas x Vitals Vitals Vital Signs Date Time Temp Pulse Resp B/P (MAP) Pulse Ox O2 Delivery O2 Flow Rate FiO2 10/17/19 07:10 Nasal Cannula 2.0 10/17/19 07:07 94 10/17/19 07:00 97.8 96 18 159/94 (115) 97.8 Physical Exam General: Alert, Oriented X3, Cooperative Heart: Regular rate, Normal S1, Normal S2 Abdomen: No tenderness, No hepatosplenomegaly, Other (decreased, hardly any bowel sounds. Moderate distention with minimal tympany and no point tenderness) Extremities: No clubbing, No cyanosis Skin: No rashes Labs LABS Laboratory Tests Test 10/16/19 09:35 White Blood Count 12.0 x10^3/uL (4.0-11.0) Red Blood Count 4.79 x10^6/uL (4.30-5.70) Hemoglobin 13.3 g/dL (13.0-17.5) Hematocrit 40.8 % (39.0-53.0) Mean Corpuscular Volume 85 fL (79-100) Mean Corpuscular Hemoglobin 28 pg (25-35) Mean Corpuscular Hemoglobin Concent 33 g/dL (31-37) Red Cell Distribution Width 13.9 % (11.5-14.5) Platelet Count 319 x10^3/uL (140-400) Neutrophils (%) (Auto) 80 % (31-73) Lymphocytes (%) (Auto) 4 % (24-48) Monocytes (%) (Auto) 16 % (0-9) Eosinophils (%) (Auto) 0 % (0-3) Basophils (%) (Auto) 0 % (0-3) Neutrophils # (Auto) 9.7 x10^3/uL (1.8-7.7) Lymphocytes # (Auto) 0.5 x10^3/uL (1.0-4.8) Monocytes # (Auto) 1.9 x10^3/uL (0.0-1.1) Eosinophils # (Auto) 0.0 x10^3/uL (0.0-0.7) Basophils # (Auto) 0.0 x10^3/uL (0.0-0.2) Segmented Neutrophils % 81 % (35-66) Band Neutrophils % 8 % (0-9) Lymphocytes % 5 % (24-48) Monocytes % 6 % (0-10) Platelet Estimate Adequate (ADEQUATE) Prothrombin Time 14.1 SEC (11.7-14.0) Prothromb Time International Ratio 1.1 (0.8-1.1) Sodium Level 137 mmol/L (136-145) Potassium Level 4.5 mmol/L (3.5-5.1) Chloride Level 99 mmol/L (98-107) Carbon Dioxide Level 23 mmol/L (21-32) Anion Gap 15 (6-14) Blood Urea Nitrogen 28 mg/dL (8-26) Creatinine 1.0 mg/dL (0.7-1.3) Estimated GFR (Cockcroft-Gault) 89.4 BUN/Creatinine Ratio 28 (6-20) Glucose Level 123 mg/dL (70-99) Calcium Level 8.9 mg/dL (8.5-10.1) Total Bilirubin 0.6 mg/dL (0.2-1.0) Aspartate Amino Transf (AST/SGOT) 27 U/L (15-37) Alanine Aminotransferase (ALT/SGPT) 27 U/L (16-63) Alkaline Phosphatase 70 U/L (46-116) Total Protein 7.0 g/dL (6.4-8.2) Albumin 3.0 g/dL (3.4-5.0) Albumin/Globulin Ratio 0.8 (1.0-1.7) Review of Systems Review of Systems bloated, constipated,s oa bec of bloatedness, no cp, rest neg Comment Review of Relevant I have reviewed the following items priscilla (where applicable) has been applied. Labs Laboratory Tests Test 10/16/19 09:35 White Blood Count 12.0 x10^3/uL (4.0-11.0) Red Blood Count 4.79 x10^6/uL (4.30-5.70) Hemoglobin 13.3 g/dL (13.0-17.5) Hematocrit 40.8 % (39.0-53.0) Mean Corpuscular Volume 85 fL (79-100) Mean Corpuscular Hemoglobin 28 pg (25-35) Mean Corpuscular Hemoglobin Concent 33 g/dL (31-37) Red Cell Distribution Width 13.9 % (11.5-14.5) Platelet Count 319 x10^3/uL (140-400) Neutrophils (%) (Auto) 80 % (31-73) Lymphocytes (%) (Auto) 4 % (24-48) Monocytes (%) (Auto) 16 % (0-9) Eosinophils (%) (Auto) 0 % (0-3) Basophils (%) (Auto) 0 % (0-3) Neutrophils # (Auto) 9.7 x10^3/uL (1.8-7.7) Lymphocytes # (Auto) 0.5 x10^3/uL (1.0-4.8) Monocytes # (Auto) 1.9 x10^3/uL (0.0-1.1) Eosinophils # (Auto) 0.0 x10^3/uL (0.0-0.7) Basophils # (Auto) 0.0 x10^3/uL (0.0-0.2) Segmented Neutrophils % 81 % (35-66) Band Neutrophils % 8 % (0-9) Lymphocytes % 5 % (24-48) Monocytes % 6 % (0-10) Platelet Estimate Adequate (ADEQUATE) Prothrombin Time 14.1 SEC (11.7-14.0) Prothromb Time International Ratio 1.1 (0.8-1.1) Sodium Level 137 mmol/L (136-145) Potassium Level 4.5 mmol/L (3.5-5.1) Chloride Level 99 mmol/L (98-107) Carbon Dioxide Level 23 mmol/L (21-32) Anion Gap 15 (6-14) Blood Urea Nitrogen 28 mg/dL (8-26) Creatinine 1.0 mg/dL (0.7-1.3) Estimated GFR (Cockcroft-Gault) 89.4 BUN/Creatinine Ratio 28 (6-20) Glucose Level 123 mg/dL (70-99) Calcium Level 8.9 mg/dL (8.5-10.1) Total Bilirubin 0.6 mg/dL (0.2-1.0) Aspartate Amino Transf (AST/SGOT) 27 U/L (15-37) Alanine Aminotransferase (ALT/SGPT) 27 U/L (16-63) Alkaline Phosphatase 70 U/L (46-116) Total Protein 7.0 g/dL (6.4-8.2) Albumin 3.0 g/dL (3.4-5.0) Albumin/Globulin Ratio 0.8 (1.0-1.7) Laboratory Tests Test 10/16/19 09:35 White Blood Count 12.0 x10^3/uL (4.0-11.0) Red Blood Count 4.79 x10^6/uL (4.30-5.70) Hemoglobin 13.3 g/dL (13.0-17.5) Hematocrit 40.8 % (39.0-53.0) Mean Corpuscular Volume 85 fL (79-100) Mean Corpuscular Hemoglobin 28 pg (25-35) Mean Corpuscular Hemoglobin Concent 33 g/dL (31-37) Red Cell Distribution Width 13.9 % (11.5-14.5) Platelet Count 319 x10^3/uL (140-400) Neutrophils (%) (Auto) 80 % (31-73) Lymphocytes (%) (Auto) 4 % (24-48) Monocytes (%) (Auto) 16 % (0-9) Eosinophils (%) (Auto) 0 % (0-3) Basophils (%) (Auto) 0 % (0-3) Neutrophils # (Auto) 9.7 x10^3/uL (1.8-7.7) Lymphocytes # (Auto) 0.5 x10^3/uL (1.0-4.8) Monocytes # (Auto) 1.9 x10^3/uL (0.0-1.1) Eosinophils # (Auto) 0.0 x10^3/uL (0.0-0.7) Basophils # (Auto) 0.0 x10^3/uL (0.0-0.2) Segmented Neutrophils % 81 % (35-66) Band Neutrophils % 8 % (0-9) Lymphocytes % 5 % (24-48) Monocytes % 6 % (0-10) Platelet Estimate Adequate (ADEQUATE) Prothrombin Time 14.1 SEC (11.7-14.0) Prothromb Time International Ratio 1.1 (0.8-1.1) Sodium Level 137 mmol/L (136-145) Potassium Level 4.5 mmol/L (3.5-5.1) Chloride Level 99 mmol/L (98-107) Carbon Dioxide Level 23 mmol/L (21-32) Anion Gap 15 (6-14) Blood Urea Nitrogen 28 mg/dL (8-26) Creatinine 1.0 mg/dL (0.7-1.3) Estimated GFR (Cockcroft-Gault) 89.4 BUN/Creatinine Ratio 28 (6-20) Glucose Level 123 mg/dL (70-99) Calcium Level 8.9 mg/dL (8.5-10.1) Total Bilirubin 0.6 mg/dL (0.2-1.0) Aspartate Amino Transf (AST/SGOT) 27 U/L (15-37) Alanine Aminotransferase (ALT/SGPT) 27 U/L (16-63) Alkaline Phosphatase 70 U/L (46-116) Total Protein 7.0 g/dL (6.4-8.2) Albumin 3.0 g/dL (3.4-5.0) Albumin/Globulin Ratio 0.8 (1.0-1.7) Medications Current Medications Acetaminophen (Tylenol Supp) 650 mg PRN Q4HRS PRN MI TEMP OVER 100.4F OR MILD PAIN; Start 10/15/19 at 21:00 Albuterol Sulfate (Ventolin Neb Soln) 2.5 mg PRN Q4HRS PRN NEB SHORTNESS OF BREATH Last administered on 10/16/19at 07:40; Start 10/15/19 at 21:00; Stop 10/16/19 at 07:53; Status DC Sodium Chloride 1,000 ml @ 75 mls/hr [id number] IV Last administered on 10/17/19at 07:11; Start 10/15/19 at 22:00 Famotidine (Pepcid Vial) 20 mg QHS IVP Last administered on 10/16/19at 21:13; Start 10/15/19 at 21:00 Fentanyl Citrate (Fentanyl 2ml Vial) 50 mcg PRN Q2HR PRN IVP SEVERE PAIN 7-10 Last administered on 10/17/19at 07:10; Start 10/15/19 at 21:00 Ondansetron HCl (Zofran) 4 mg PRN Q6HRS PRN IVP NAUSEA/VOMITING 1ST CHOICE; Start 10/15/19 at 21:00 Labetalol HCl (Normodyne Iv Push) 10 mg PRN Q2HR PRN IVP HYPERTENSION Last administered on 10/17/19at 04:27; Start 10/15/19 at 21:00 Ceftriaxone Sodium (Rocephin) 1 gm Q24H IVP Last administered on 10/16/19at 21:13; Start 10/15/19 at 22:00 Azithromycin 250 mg/Sodium Chloride 250 ml @ 250 mls/hr Q24H IV Last administered on 10/16/19at 21:14; Start 10/15/19 at 22:00 Benzocaine (Hurricaine One) 1 spray PRN QID PRN MM PAIN Last administered on 10/15/19at 22:06; Start 10/15/19 at 21:30; Stop 10/16/19 at 07:46; Status DC Influenza Virus Vaccine Quadrival (Afluria Quad 2019-20 (3yr Up) Syringe) 0.5 ml ONCE ONCE VAX IM ; Start 10/16/19 at 09:00; Stop 10/16/19 at 09:01; Status DC Phenol (Chloraseptic) 1 spray PRN Q2HR PRN PO SORE THROAT; Start 10/16/19 at 07:45; Status Cancel Phenol (Chloraseptic) 1 spray PRN Q2HR PRN PO SORE THROAT; Start 10/16/19 at 08:00 Albuterol Sulfate (Ventolin Neb Soln) 2.5 mg Q4H NEB Last administered on 10/17/19at 07:06; Start 10/16/19 at 12:00 Labetalol HCl (Normodyne Iv Push) 10 mg PRN Q2HR PRN IVP HYPERTENSION; Start 10/16/19 at 09:15; Stop 10/16/19 at 10:40; Status DC Iohexol (Omnipaque 300 Mg/ml) 400 ml 1X ONCE MI Last administered on 10/16/19at 10:45; Start 10/16/19 at 10:45; Stop 10/16/19 at 10:46; Status DC Info (CONTRAST GIVEN -- Rx MONITORING) 1 each PRN DAILY PRN MC SEE COMMENTS; Start 10/16/19 at 10:45; Stop 10/18/19 at 10:44 Magnesium Citrate (Citroma) 296 ml 1X ONCE NG Last administered on 10/16/19at 19:08; Start 10/16/19 at 18:45; Stop 10/16/19 at 18:46; Status DC Bisacodyl (Dulcolax Tab) 10 mg 1X ONCE PO ; Start 10/17/19 at 10:30; Stop 10/17/19 at 07:26; Status DC Methylnaltrexone [place] (Relistor) 12 mg 1X ONCE SQ ; Start 10/17/19 at 07:30; Stop 10/17/19 at 07:31; Status DC Polyethylene Glycol (miraLAX PACKET) 17 gm DAILY PO Last administered on 10/17/19at 07:57; Start 10/17/19 at 09:00 Vitals/I & O Vital Sign - Last 24 Hours 10/16/19 10/16/19 10/16/19 10/16/19 10:21 10:51 11:00 11:28 Temp 99.2 99.2 Pulse 90 Resp 18 B/P (MAP) 162/98 (119) Pulse Ox 92 92 O2 Delivery Nasal Cannula Room Air Nasal Cannula Nasal Cannula O2 Flow Rate 2.0 2.0 2.0 10/16/19 10/16/19 10/16/19 10/16/19 11:53 12:25 13:23 14:14 O2 Delivery Nasal Cannula Room Air Nasal Cannula Nasal Cannula O2 Flow Rate 2.0 2.0 2.0 10/16/19 10/16/19 10/16/19 10/16/19 14:44 15:00 15:53 16:26 Temp 98.6 98.6 Pulse 107 Resp 18 B/P (MAP) 153/99 (117) Pulse Ox 92 92 O2 Delivery Nasal Cannula Nasal Cannula Room Air Nasal Cannula O2 Flow Rate 2.0 0.5 2.0 10/16/19 10/16/19 10/16/19 10/16/19 16:56 19:00 20:00 20:15 Temp 97.5 97.5 Pulse 111 Resp 18 B/P (MAP) 159/18 (65) Pulse Ox 93 93 O2 Delivery Nasal Cannula Nasal Cannula Nasal Cannula Room Air O2 Flow Rate 2.0 1.0 2.0 10/16/19 10/16/19 10/16/19 10/16/19 21:14 21:44 23:00 23:30 Temp 97.7 97.7 Pulse 112 Resp 20 20 18 B/P (MAP) 154/99 (117) Pulse Ox 93 93 94 94 O2 Delivery Nasal Cannula Nasal Cannula Nasal Cannula Room Air O2 Flow Rate 1.0 1.0 1.0 10/17/19 10/17/19 10/17/19 10/17/19 01:26 01:56 03:00 03:15 Temp 98.5 98.5 Pulse 106 Resp 20 18 B/P (MAP) 166/92 (116) Pulse Ox 94 95 O2 Delivery Nasal Cannula Nasal Cannula Nasal Cannula Room Air O2 Flow Rate 1.0 1.0 10/17/19 10/17/19 10/17/19 10/17/19 04:27 04:31 06:24 07:00 Temp 97.8 97.8 Pulse 106 96 Resp 20 20 18 B/P (MAP) 166/92 159/94 (115) Pulse Ox 95 95 90 O2 Delivery Nasal Cannula Nasal Cannula Room Air O2 Flow Rate 1.0 1.0 10/17/19 10/17/19 07:07 07:10 Pulse Ox 94 O2 Delivery Nasal Cannula Nasal Cannula O2 Flow Rate 2.0 2.0 Intake and Output 10/16/19 10/16/19 10/17/19 15:00 23:00 07:00 Intake Total 0 ml Output Total 200 ml 200 ml Balance -200 ml -200 ml OCOKIE FAY MD Oct 17, 2019 09:24
[2019-10-17] MEDS ORDERED: SIMETHICONE 80 MG TAB.CHEW PO PRN (09:30)
[2019-10-17 09:38] LABS: CALCIUM 8.9 mg/dL (8.5-10.1); GFR 89.4; POTASSIUM 4.5 mmol/L (3.5-5.1)
[2019-10-17] MEDS ORDERED: BISACODYL 5 MG TABLET.DR. PO PRN (09:45)
--- NOTE | 2019-10-17 09:52 | RAD ---
Examination: KUB History: Ileus Comparison/Correlation: 10/16/2019 KUB x-ray exam Findings: Frontal views of the abdomen were obtained. Interval removal of enteric tube noted. Gaseous distention of the stomach and colon again seen. Gaseous distention of bowel at the right lower quadrant at the expected level of the cecum is noted. Distention of the ascending colon noted. Left lower quadrant small bowel loop measuring 5.5 cm transverse is evident. Degenerative changes of the lower lumbar spine noted. Contrast within the mid to distal sigmoid colon noted. Diverticulosis of the colon noted. Impression: Distention ascending colon particularly involving the level of the cecum noted. Distention of left lower quadrant small bowel loop. Findings are most compatible with ileus. Consider continued follow-up. Electronically signed by: Luis Alberto Vargas MD (10/17/2019 9:49 AM) [facility]
--- NOTE | 2019-10-17 10:28 | PDOC ---
KATLYN TERRY COUNSEL 10/17/19 1028: SURGICAL PROGRESS NOTE Subjective resting still with distention, pain joint pain/stiffness also no significant bowel function since enema yesterday Vital Signs Vital Signs Date Time Temp Pulse Resp B/P (MAP) Pulse Ox O2 Delivery O2 Flow Rate FiO2 10/17/19 07:10 Nasal Cannula 2.0 10/17/19 07:07 94 10/17/19 07:00 97.8 96 18 159/94 (115) 97.8 I&O Intake and Output 10/17/19 07:00 Intake Total 0 ml Output Total 400 ml Balance -400 ml Intake Oral 0 ml Output Urine Total 400 ml # Voids 4 General: Alert, Cooperative, No acute distress Abdomen: Soft, Other (distended) Labs Laboratory Tests Test 10/16/19 09:35 10/17/19 08:55 White Blood Count 12.0 x10^3/uL (4.0-11.0) 14.4 x10^3/uL (4.0-11.0) Red Blood Count 4.79 x10^6/uL (4.30-5.70) 4.73 x10^6/uL (4.30-5.70) Hemoglobin 13.3 g/dL (13.0-17.5) 12.9 g/dL (13.0-17.5) Hematocrit 40.8 % (39.0-53.0) 40.2 % (39.0-53.0) Mean Corpuscular Volume 85 fL (79-100) 85 fL (79-100) Mean Corpuscular Hemoglobin 28 pg (25-35) 27 pg (25-35) Mean Corpuscular Hemoglobin Concent 33 g/dL (31-37) 32 g/dL (31-37) Red Cell Distribution Width 13.9 % (11.5-14.5) 13.9 % (11.5-14.5) Platelet Count 319 x10^3/uL (140-400) 370 x10^3/uL (140-400) Neutrophils (%) (Auto) 80 % (31-73) 82 % (31-73) Lymphocytes (%) (Auto) 4 % (24-48) 4 % (24-48) Monocytes (%) (Auto) 16 % (0-9) 14 % (0-9) Eosinophils (%) (Auto) 0 % (0-3) 0 % (0-3) Basophils (%) (Auto) 0 % (0-3) 0 % (0-3) Neutrophils # (Auto) 9.7 x10^3/uL (1.8-7.7) 11.8 x10^3/uL (1.8-7.7) Lymphocytes # (Auto) 0.5 x10^3/uL (1.0-4.8) 0.6 x10^3/uL (1.0-4.8) Monocytes # (Auto) 1.9 x10^3/uL (0.0-1.1) 2.1 x10^3/uL (0.0-1.1) Eosinophils # (Auto) 0.0 x10^3/uL (0.0-0.7) 0.0 x10^3/uL (0.0-0.7) Basophils # (Auto) 0.0 x10^3/uL (0.0-0.2) 0.0 x10^3/uL (0.0-0.2) Segmented Neutrophils % 81 % (35-66) Band Neutrophils % 8 % (0-9) Lymphocytes % 5 % (24-48) Monocytes % 6 % (0-10) Platelet Estimate Adequate (ADEQUATE) Prothrombin Time 14.1 SEC (11.7-14.0) Prothromb Time International Ratio 1.1 (0.8-1.1) Sodium Level 137 mmol/L (136-145) 139 mmol/L (136-145) Potassium Level 4.5 mmol/L (3.5-5.1) 4.5 mmol/L (3.5-5.1) Chloride Level 99 mmol/L (98-107) 102 mmol/L (98-107) Carbon Dioxide Level 23 mmol/L (21-32) 27 mmol/L (21-32) Anion Gap 15 (6-14) 10 (6-14) Blood Urea Nitrogen 28 mg/dL (8-26) 35 mg/dL (8-26) Creatinine 1.0 mg/dL (0.7-1.3) 1.0 mg/dL (0.7-1.3) Estimated GFR (Cockcroft-Gault) 89.4 89.4 BUN/Creatinine Ratio 28 (6-20) Glucose Level 123 mg/dL (70-99) 137 mg/dL (70-99) Calcium Level 8.9 mg/dL (8.5-10.1) 8.9 mg/dL (8.5-10.1) Total Bilirubin 0.6 mg/dL (0.2-1.0) Aspartate Amino Transf (AST/SGOT) 27 U/L (15-37) Alanine Aminotransferase (ALT/SGPT) 27 U/L (16-63) Alkaline Phosphatase 70 U/L (46-116) Total Protein 7.0 g/dL (6.4-8.2) Albumin 3.0 g/dL (3.4-5.0) Albumin/Globulin Ratio 0.8 (1.0-1.7) Laboratory Tests Test 10/17/19 08:55 White Blood Count 14.4 x10^3/uL (4.0-11.0) Red Blood Count 4.73 x10^6/uL (4.30-5.70) Hemoglobin 12.9 g/dL (13.0-17.5) Hematocrit 40.2 % (39.0-53.0) Mean Corpuscular Volume 85 fL (79-100) Mean Corpuscular Hemoglobin 27 pg (25-35) Mean Corpuscular Hemoglobin Concent 32 g/dL (31-37) Red Cell Distribution Width 13.9 % (11.5-14.5) Platelet Count 370 x10^3/uL (140-400) Neutrophils (%) (Auto) 82 % (31-73) Lymphocytes (%) (Auto) 4 % (24-48) Monocytes (%) (Auto) 14 % (0-9) Eosinophils (%) (Auto) 0 % (0-3) Basophils (%) (Auto) 0 % (0-3) Neutrophils # (Auto) 11.8 x10^3/uL (1.8-7.7) Lymphocytes # (Auto) 0.6 x10^3/uL (1.0-4.8) Monocytes # (Auto) 2.1 x10^3/uL (0.0-1.1) Eosinophils # (Auto) 0.0 x10^3/uL (0.0-0.7) Basophils # (Auto) 0.0 x10^3/uL (0.0-0.2) Sodium Level 139 mmol/L (136-145) Potassium Level 4.5 mmol/L (3.5-5.1) Chloride Level 102 mmol/L (98-107) Carbon Dioxide Level 27 mmol/L (21-32) Anion Gap 10 (6-14) Blood Urea Nitrogen 35 mg/dL (8-26) Creatinine 1.0 mg/dL (0.7-1.3) Estimated GFR (Cockcroft-Gault) 89.4 Glucose Level 137 mg/dL (70-99) Calcium Level 8.9 mg/dL (8.5-10.1) Assessment/Plan colonic ileus plans as per Gi, scope tomorrow MONIQUE GAO MD 10/17/19 1359: SURGICAL PROGRESS NOTE Assessment/Plan pt seen and examined , a daughter at the bedside markedly distended, tympanitic no new surg recs as per GI KATLYN TERRY APRN Oct 17, 2019 10:28 MONIQUE GAO MD Oct 17, 2019 13:59
[2019-10-17] MEDS ORDERED: BISACODYL 5 MG TABLET.DR. PO ONE (10:30)
--- NOTE | 2019-10-17 12:52 | NUR ---
SW following. Discussed with RN, pt is from home with , gets around fine. Colonoscopy tomorrow (10/18/2019). SW will continue to follow.
[2019-10-17] MEDS ORDERED: MAGNESIUM CITRATE 296 ML SOLUTION. PO ONE (18:00)
[2019-10-17] MEDS: FAMOTIDINE 20 MG/2 ML VIAL IVP SCH (20:10)
[2019-10-17] MEDS: cefTRIAXone IV Push 1 GM VIAL. IVP SCH (22:10)
[2019-10-17] MEDS: AZITHROMYCIN 250 MG in IV NORMAL SALINE 250ML 250 ML IV SCH (22:11)
[2019-10-18] MEDS: fentaNYL PF VIAL 100 MCG/2 ML VIAL IVP PRN ×5 (02:16→21:00)
[2019-10-18 03:00] VITALS: BP 147/98
[2019-10-18] MEDS: ALBUTEROL SULFATE 2.5 MG/3 ML NEBU. NEB SCH ×6 (03:58→19:41)
[2019-10-18 07:00] VITALS: BP 153/89
[2019-10-18] MEDS: POLYETHYLENE GLYCOL 3350 17 GM PACKET. PO SCH (09:00)
--- NOTE | 2019-10-18 09:30 | PDOC ---
Subjective: Subjective: First says not much stool - then says significant amount yesterday but "residue" this morning. No flatus, still distended. Wants me to update him more than I have been, wants to drink water. Objective: Objective: D/w nurse - 200cc "chocolate pudding" stool last night, unclear how much overnight because was still drinking Mag Citrate when she left. Vital Signs: Vital Signs Date Time Temp Pulse Resp B/P (MAP) Pulse Ox O2 Delivery O2 Flow Rate FiO2 10/18/19 09:12 98 Nasal Cannula 2.0 10/18/19 07:12 20 10/18/19 07:00 98.4 95 153/89 (110) 98.4 Imaging: KUB 10/18/18 pending PE: GEN: NAD LUNGS: room air HEART: RRR ABD: distended, tight, tympanitic NEURO/PSYCH: A & O 3 A/P: Colonic ileus -- Much time spent this morning - discussed w/ Dr. Kulkarni, nursing, pt and , Jane/surgery, and GI lab. Options discussed include transfer to another floor w/ cardiac monitoring and try neostigmine protocol - Dr. Kulkarni discussed this morning w/ pharmacy - OR attempt decompressive colonoscopy. Pt would like to proceed w/ limited colonoscopy option - discussed possible adverse effects of neostigmine and he would like to avoid this for now. Many questions from pt and - what happens if colonoscopy and neostigmine are unsuccessful, what happens if he has bradycardia, want to know if he has a blockage, what are we looking for on x-ray, etc. - would really like some answers. Attempted to satisfy their questions, explained ileus vs blockage, etc. KUB pending. Continue NPO and IVF. Will give another enema - called to nurse - and set up colonoscopy for this afternoon. Hemodynamically unstable?: No Is patient in severe pain?: Yes Is NPO status required?: Yes CANDACE CRAIG Oct 18, 2019 09:30
--- NOTE | 2019-10-18 09:43 | PDOC ---
KATLYN TERRY SHIPPING AND RECEIVING ASSISTANT 10/18/19 0943: SURGICAL PROGRESS NOTE Subjective resting d/w pt, family, GI plans for scope today Vital Signs Vital Signs Date Time Temp Pulse Resp B/P (MAP) Pulse Ox O2 Delivery O2 Flow Rate FiO2 10/18/19 09:12 98 Nasal Cannula 2.0 10/18/19 07:12 20 10/18/19 07:00 98.4 95 153/89 (110) 98.4 I&O Intake and Output 10/18/19 07:00 Intake Total 790 ml Output Total 1 ml Balance 789 ml Intake Oral 790 ml Stool Total 1 ml General: Cooperative, No acute distress Abdomen: Soft, Other (distended ) Labs Laboratory Tests Test 10/17/19 08:55 White Blood Count 14.4 x10^3/uL (4.0-11.0) Red Blood Count 4.73 x10^6/uL (4.30-5.70) Hemoglobin 12.9 g/dL (13.0-17.5) Hematocrit 40.2 % (39.0-53.0) Mean Corpuscular Volume 85 fL (79-100) Mean Corpuscular Hemoglobin 27 pg (25-35) Mean Corpuscular Hemoglobin Concent 32 g/dL (31-37) Red Cell Distribution Width 13.9 % (11.5-14.5) Platelet Count 370 x10^3/uL (140-400) Neutrophils (%) (Auto) 82 % (31-73) Lymphocytes (%) (Auto) 4 % (24-48) Monocytes (%) (Auto) 14 % (0-9) Eosinophils (%) (Auto) 0 % (0-3) Basophils (%) (Auto) 0 % (0-3) Neutrophils # (Auto) 11.8 x10^3/uL (1.8-7.7) Lymphocytes # (Auto) 0.6 x10^3/uL (1.0-4.8) Monocytes # (Auto) 2.1 x10^3/uL (0.0-1.1) Eosinophils # (Auto) 0.0 x10^3/uL (0.0-0.7) Basophils # (Auto) 0.0 x10^3/uL (0.0-0.2) Sodium Level 139 mmol/L (136-145) Potassium Level 4.5 mmol/L (3.5-5.1) Chloride Level 102 mmol/L (98-107) Carbon Dioxide Level 27 mmol/L (21-32) Anion Gap 10 (6-14) Blood Urea Nitrogen 35 mg/dL (8-26) Creatinine 1.0 mg/dL (0.7-1.3) Estimated GFR (Cockcroft-Gault) 89.4 Glucose Level 137 mg/dL (70-99) Calcium Level 8.9 mg/dL (8.5-10.1) Assessment/Plan colonic ileus d/w with patient and family differences between mechanical and pseudo obstructions conservative measures--attempts at scope today--GI discussing neostigmine no current surgical indications MONIQUE GAO MD 10/18/19 1351: SURGICAL PROGRESS NOTE Assessment/Plan seen in GI lab pre colonoscopy getting a breathing treatment remains distended said rusty to his in waiting area will await results of 'scope KATLYN TERRY APRN Oct 18, 2019 09:43 MONIQUE GAO MD Oct 18, 2019 13:51
--- NOTE | 2019-10-18 10:26 | NUR ---
SW following. Discussed with RN, pt having colonoscopy today at 1300. SW will continue to follow.
[2019-10-18 11:00] VITALS: BP 154/96
--- NOTE | 2019-10-18 11:19 | PDOC ---
PROGRESS NOTES Chief Complaint Chief Complaint SEVERE ILEUS< HIGH GRADE OBSTRUCTION, COLONIC MASS CANT BE RULED OUT - neg barium enema study RECENT CONSTIPATION FULL CODE HX GOUT NO signif abd hx, no signif past medical hx History of Present Illness History of Present Illness still bloated was very concerned for c scope later 1 PM GS has ordered tap water enema NOW stooling and IT IS DIRTY LIQUID OUTPUT plus GAS s/p RELISTOR - no rela output ATROPINE ? was a thought from GI but will need to transfer to tele floor if will be administered (BEC of bradycardia) WBC 12 no fevers- on CAP coverage from CXR in outside facility - if persists or worsens, i might shift to zosyn PLAN: C scope 1 PM NOsurgical plans Primarily GI managing NPO now, was on liquid diet prior to C scope plans (CAME from HOME< OTHERWISE PREV HEALTHY) Vitals Vitals Vital Signs Date Time Temp Pulse Resp B/P (MAP) Pulse Ox O2 Delivery O2 Flow Rate FiO2 10/18/19 09:12 98 Nasal Cannula 2.0 10/18/19 07:42 18 10/18/19 07:00 98.4 95 153/89 (110) 98.4 Physical Exam General: Cooperative, No acute distress Heart: Regular rate, Normal S1, Normal S2 Abdomen: Soft, Other (distended ) Extremities: No clubbing, No cyanosis Skin: No rashes Review of Systems Review of Systems constipated bloated etc, all else is neg Comment Review of Relevant I have reviewed the following items priscilla (where applicable) has been applied. Labs Laboratory Tests Test 10/17/19 08:55 White Blood Count 14.4 x10^3/uL (4.0-11.0) Red Blood Count 4.73 x10^6/uL (4.30-5.70) Hemoglobin 12.9 g/dL (13.0-17.5) Hematocrit 40.2 % (39.0-53.0) Mean Corpuscular Volume 85 fL (79-100) Mean Corpuscular Hemoglobin 27 pg (25-35) Mean Corpuscular Hemoglobin Concent 32 g/dL (31-37) Red Cell Distribution Width 13.9 % (11.5-14.5) Platelet Count 370 x10^3/uL (140-400) Neutrophils (%) (Auto) 82 % (31-73) Lymphocytes (%) (Auto) 4 % (24-48) Monocytes (%) (Auto) 14 % (0-9) Eosinophils (%) (Auto) 0 % (0-3) Basophils (%) (Auto) 0 % (0-3) Neutrophils # (Auto) 11.8 x10^3/uL (1.8-7.7) Lymphocytes # (Auto) 0.6 x10^3/uL (1.0-4.8) Monocytes # (Auto) 2.1 x10^3/uL (0.0-1.1) Eosinophils # (Auto) 0.0 x10^3/uL (0.0-0.7) Basophils # (Auto) 0.0 x10^3/uL (0.0-0.2) Sodium Level 139 mmol/L (136-145) Potassium Level 4.5 mmol/L (3.5-5.1) Chloride Level 102 mmol/L (98-107) Carbon Dioxide Level 27 mmol/L (21-32) Anion Gap 10 (6-14) Blood Urea Nitrogen 35 mg/dL (8-26) Creatinine 1.0 mg/dL (0.7-1.3) Estimated GFR (Cockcroft-Gault) 89.4 Glucose Level 137 mg/dL (70-99) Calcium Level 8.9 mg/dL (8.5-10.1) Medications Current Medications Acetaminophen (Tylenol Supp) 650 mg PRN Q4HRS PRN [place] TEMP OVER 100.4F OR MILD PAIN; Start 10/15/19 at 21:00 Albuterol Sulfate (Ventolin Neb Soln) 2.5 mg PRN Q4HRS PRN NEB SHORTNESS OF BREATH Last administered on 10/16/19at 07:40; Start 10/15/19 at 21:00; Stop 10/16/19 at 07:53; Status DC Sodium Chloride 1,000 ml @ 75 mls/hr [id number] IV Last administered on 10/17/19 16:47; Start 10/15/19 at 22:00 Famotidine (Pepcid Vial) 20 mg QHS IVP Last administered on 10/17/19 20:10; Start 10/15/19 at 21:00 Fentanyl Citrate (Fentanyl 2ml Vial) 50 mcg PRN Q2HR PRN IVP SEVERE PAIN 7-10 Last administered on 10/18/19at 07:12; Start 10/15/19 at 21:00 Ondansetron HCl (Zofran) 4 mg PRN Q6HRS PRN IVP NAUSEA/VOMITING 1ST CHOICE; Start 10/15/19 at 21:00 Labetalol HCl (Normodyne Iv Push) 10 mg PRN Q2HR PRN IVP HYPERTENSION Last administered on 10/17/19at 04:27; Start 10/15/19 at 21:00 Ceftriaxone Sodium (Rocephin) 1 gm Q24H IVP Last administered on 10/17/19at 22:10; Start 10/15/19 at 22:00 Azithromycin 250 mg/Sodium Chloride 250 ml @ 250 mls/hr Q24H IV Last adm inistered on 10/17/19at 22:11; Start 10/15/19 at 22:00 Benzocaine (Hurricaine One) 1 spray PRN QID PRN MM PAIN Last administered on 10/15/19at 22:06; Start 10/15/19 at 21:30; Stop 10/16/19 at 07:46; Status DC Influenza Virus Vaccine Quadrival (Afluria Quad 2019-20 (3yr Up) Syringe) 0.5 ml ONCE ONCE VAX IM ; Start 10/16/19 at 09:00; Stop 10/16/19 at 09:01; Status DC Phenol (Chloraseptic) 1 spray PRN Q2HR PRN PO SORE THROAT; Start 10/16/19 at 07:45; Status Cancel Phenol (Chloraseptic) 1 spray PRN Q2HR PRN PO SORE THROAT; Start 10/16/19 at 08:00 Albuterol Sulfate (Ventolin Neb Soln) 2.5 mg Q4H NEB Last administered on 10/18/19at 09:12; Start 10/16/19 at 12:00 Labetalol HCl (Normodyne Iv Push) 10 mg PRN Q2HR PRN IVP HYPERTENSION; Start 10/16/19 at 09:15; Stop 10/16/19 at 10:40; Status DC Iohexol (Omnipaque 300 Mg/ml) 400 ml 1X ONCE VA Last administered on 10/16/19at 10:45; Start 10/16/19 at 10:45; Stop 1/1/20 at 10:46; Status DC Info (CONTRAST GIVEN -- Rx MONITORING) 1 each PRN DAILY PRN MC SEE COMMENTS; Start 10/16/19 at 10:45; Stop 10/18/19 at 10:44; Status DC Magnesium Citrate (Citroma) 296 ml 1X ONCE NG Last administered on 10/16/19at 19:08; Start 10/16/19 at 18:45; Stop 10/16/19 at 18:46; Status DC Bisacodyl (Dulcolax Tab) 10 mg 1X ONCE PO ; Start 10/17/19 at 10:30; Stop 10/17/19 at 07:26; Status DC Methylnaltrexone [place] (Relistor) 12 mg 1X ONCE SQ Last administered on 10/17/19at 10:01; Start 10/17/19 at 07:30; Stop 10/17/19 at 07:31; Status DC Polyethylene Glycol (miraLAX PACKET) 17 gm DAILY PO Last administered on 10/17/19at 07:57; Start 10/17/19 at 09:00 Simethicone (Gas-X) 80 mg PRN AFTMEALHC PRN PO GAS / BLOATING Last administered on 10/17/19at 10:00; Start 10/17/19 at 09:30 Bisacodyl (Dulcolax Tab) 10 mg 1X PRN PO CONSTIPATION Last administered on 10/17/19at 10:00; Start 10/17/19 at 09:45 Magnesium Citrate (Citroma) 296 ml 1X ONCE PO Last administered on 10/17/19at 18:19; Start 10/17/19 at 18:00; Stop 10/17/19 at 18:01; Status DC Vitals/I & O Vital Sign - Last 24 Hours 10/17/19 10/17/19 10/17/19 10/17/19 11:40 14:25 14:55 14:57 Resp 18 16 18 Pulse Ox 94 O2 Delivery Room Air Nasal Cannula O2 Flow Rate 2.0 10/17/19 10/17/19 10/17/19 10/17/19 15:00 17:33 18:03 19:00 Temp 98.6 98.8 98.6 98.8 Pulse 98 101 Resp 18 18 18 18 B/P (MAP) 141/76 (97) 149/95 (113) Pulse Ox 93 94 O2 Delivery Nasal Cannula Room Air Nasal Cannula O2 Flow Rate 2.0 2.0 10/17/19 10/17/19 10/17/19 10/17/19 19:02 19:41 20:00 20:11 Resp 20 B/P (MAP) 147/86 (106) Pulse Ox 94 94 O2 Delivery Nasal Cannula Nasal Cannula Nasal Cannula O2 Flow Rate 2.0 2.0 2.0 10/17/19 10/17/19 10/17/19 10/18/19 20:41 23:00 23:30 00:00 Temp 99.8 99.8 Pulse 99 Resp 20 B/P (MAP) 151/101 (118) Pulse Ox 94 95 95 94 O2 Delivery Nasal Cannula Nasal Cannula Nasal Cannula Nasal Cannula O2 Flow Rate 2.0 2.0 2.0 2.0 10/18/19 10/18/19 10/18/19 10/18/19 00:10 02:16 02:46 03:00 Temp 98.4 98.4 Pulse 93 Resp B/P (MAP) 147/98 (114) Pulse Ox 94 94 94 94 O2 Delivery Nasal Cannula Nasal Cannula Nasal Cannula Nasal Cannula O2 Flow Rate 2.0 2.0 2.0 2.0 10/18/19 10/18/19 10/18/19 10/18/19 07:00 07:12 07:42 09:12 Temp 98.4 98.4 Pulse 95 Resp 18 B/P (MAP) 153/89 (110) Pulse Ox 90 98 O2 Delivery Nasal Cannula Nasal Cannula O2 Flow Rate 2.0 2.0 Intake and Output 10/17/19 10/17/19 10/18/19 15:00 23:00 07:00 Intake Total 510 ml 280 ml Output Total 1 ml Balance 510 ml 280 ml -1 ml Hemodynamically unstable?: No Is patient in severe pain?: Yes Is NPO status required?: Yes COOKIE FAY MD Oct 18, 2019 11:19
[2019-10-18] MEDS ORDERED: PIP/TAZO PER PHARMACY MC PRN (11:30)
--- NOTE | 2019-10-18 11:55 | RAD ---
Examination: KUB History: Ileus Comparison/Correlation: 10/17/2019 K BX for exam Findings: Portable supine frontal views of the abdomen were obtained. Gaseous distention of large and small bowel is noted. No suspicious abdominal calcifications. Degenerative changes of the mid lumbar spine again seen. Impression: Mild decrease in gaseous distention of bowel which may represent ileus or Rochert syndrome. Electronically signed by: Luis Alberto Vargas MD (10/18/2019 11:52 AM) [facility]
[2019-10-18] MEDS ORDERED: IV RINGERS,LACTATED 1000ML 1,000 ML IV ONE (13:30)
[2019-10-18] MEDS ORDERED: IPRATRPIUM/ALBUTEROL 0.5/2.5MG 3 ML NEBU. NEB ONE (13:45)
[2019-10-18] MEDS ORDERED: PROPOFOL 40 ML IV ONE (13:57)
--- NOTE | 2019-10-18 14:19 | PDOC ---
Provider Note Provider Note Pt is off unit for procedure Hemodynamically unstable?: No Is patient in severe pain?: Yes Is NPO status required?: Yes LOKESH HALL MD Oct 18, 2019 14:19
[2019-10-18 15:00] VITALS: BP 154/86
--- NOTE | 2019-10-18 15:04 | PDOC4 ---
PROCEDURE Procedure Coonoscopy- decompressive - with bx pseudoobstruction/ileus anesthesia- propofol Findings- liquid and air throughout colon- distension noted in ascending and cecum- with segmental colitis/ulcers- suggestive of ischemia (bx)- 1.4 liters of fluid and lots of air/gas removed with vigorous suction and after procedure noticeable improvement in distension Plan- CLD- slowly advance only after return of bowel function abx check biopsies MAU REYNOSO MD Oct 18, 2019 15:04
[2019-10-18] MEDS: MEROPENEM 1 GM in IV NORMAL SALINE 100ML 100 ML IV SCH ×2 (16:08→21:04)
[2019-10-18] MEDS: IV NORMAL SALINE 1000ML BAG 1,000 ML IV SCH (17:58)
[2019-10-18 19:00] VITALS: BP 150/84
[2019-10-18 19:44] LABS: HEMATOCRIT 38.5 % (39.0-53.0); HEMOGLOBIN 12.4 g/dL (13.0-17.5); RED BLOOD COUNT 4.54 x10^6/uL (4.30-5.70); RED CELL DISTRIBUTION WIDTH 13.7 % (11.5-14.5); WHITE BLOOD COUNT 12.2 x10^3/uL (4.0-11.0)
[2019-10-18 19:57] LABS: CALCIUM 8.3 mg/dL (8.5-10.1); CREATININE 0.9 mg/dL (0.7-1.3); GFR 100.9; POTASSIUM 3.9 mmol/L (3.5-5.1)
[2019-10-18] MEDS: FAMOTIDINE 20 MG/2 ML VIAL IVP SCH (21:00)
[2019-10-18 23:00] VITALS: BP 156/90
[2019-10-19 03:00] VITALS: BP 161/74
[2019-10-19] MEDS: ALBUTEROL SULFATE 2.5 MG/3 ML NEBU. NEB SCH ×6 (03:08→19:53)
[2019-10-19] MEDS: fentaNYL PF VIAL 100 MCG/2 ML VIAL IVP PRN ×3 (04:01→23:44)
[2019-10-19] MEDS: MEROPENEM 1 GM in IV NORMAL SALINE 100ML 100 ML IV SCH ×3 (06:03→21:38)
[2019-10-19] MEDS: IV NORMAL SALINE 1000ML BAG 1,000 ML IV SCH ×2 (06:04→21:41)
[2019-10-19 06:40] LABS: BASO % 0 % (0-3); CALCIUM 8.2 mg/dL (8.5-10.1); CREATININE 0.9 mg/dL (0.7-1.3); EOS # 0.2 x10^3/uL (0.0-0.7); EOS % 3 % (0-3); GFR 100.9; HEMATOCRIT 36.6 % (39.0-53.0); HEMOGLOBIN 11.8 g/dL (13.0-17.5); LYMPH % 12 % (24-48); MEAN CORPUSCULAR HEMOGLOBIN 28 pg (25-35); MEAN CORPUSCULAR HGB CONC 32 g/dL (31-37); MEAN CORPUSCULAR VOLUME 86 fL (79-100); MONO # 1.4 x10^3/uL (0.0-1.1); MONO % 16 % (0-9); NEUT # 6.1 x10^3/uL (1.8-7.7); NEUT % 69 % (31-73); PLATELET COUNT 358 x10^3/uL (140-400); RED BLOOD COUNT 4.28 x10^6/uL (4.30-5.70); RED CELL DISTRIBUTION WIDTH 13.9 % (11.5-14.5); WHITE BLOOD COUNT 8.8 x10^3/uL (4.0-11.0)
[2019-10-19 07:00] VITALS: BP 154/86
[2019-10-19] MEDS: POLYETHYLENE GLYCOL 3350 17 GM PACKET. PO SCH (09:00)
--- NOTE | 2019-10-19 09:45 | PDOC ---
PROGRESS NOTES Chief Complaint Chief Complaint IMPRESSION SEVERE ILEUS< HIGH GRADE OBSTRUCTION, Colonoscopy reveals dilated cecum with ulceration suggestive of ischemic colitis - neg barium enema study RECENT CONSTIPATION FULL CODE HX GOUT NO signif abd hx, no signif past medical hx History of Present Illness History of Present Illness still bloated NOW stooling and IT IS DIRTY LIQUID OUTPUT plus GAS s/p RELISTOR - no rela output ATROPINE ? was a thought from GI but will need to transfer to tele floor if will be administered (BEC of bradycardia) WBC 12 no fevers- PLAN: NOsurgical plans pt/ot (CAME from HOME< OTHERWISE PREV HEALTHY) Vitals Vitals Vital Signs Date Time Temp Pulse Resp B/P (MAP) Pulse Ox O2 Delivery O2 Flow Rate FiO2 10/19/19 07:36 97 Nasal Cannula 1.0 10/19/19 07:00 98.2 80 16 154/86 (108) 98.2 Physical Exam General: Oriented X3, Cooperative, No acute distress Heart: Regular rate, Normal S1, Normal S2 Lungs: Clear Abdomen: Soft, Other (distended ) Extremities: No clubbing, No cyanosis Skin: No rashes Labs LABS Examination: KUB History: Ileus Comparison/Correlation: 10/17/2019 K BX for exam Findings: Portable supine frontal views of the abdomen were obtained. Gaseous distention of large and small bowel is noted. No suspicious abdominal calcifications. Degenerative changes of the mid lumbar spine again seen. Impression: Mild decrease in gaseous distention of bowel which may represent ileus or Villanueva syndrome. Electronically signed by: Luis Alberto Shanks MD (10/18/2019 11:52 AM) [facility] DICTATED and SIGNED BY: LUIS ALBERTO SHANKS MD DATE: 10/18/19 1152 User: Carmen Eduardo PT PT Date: 10/16/19 14:16 Type: PT Assessment Visit Type * Functional Screen Attempted Visit Details * Orders received and chart reviewed. PT observed pt walking ad adeel in hallway with . PT spoke with pt who reports moving around well. Pt notes with recent NG tube placement, pt has been walking slower, but overall pt states he is very active and does not need physical therapy at this time. Pt informed to notify RN if any changes arise so they can reorder our services. Pt agreed. PT will sign-off. PT/MEDICAL MALPRACTICE PARALEGAL * Carmen Eduardo DPT Communicated Patient Care With (Name, Title) * ROSSY Scott Laboratory Tests Test 10/18/19 19:15 10/19/19 03:11 White Blood Count 12.2 x10^3/uL (4.0-11.0) 8.8 x10^3/uL (4.0-11.0) Red Blood Count 4.54 x10^6/uL (4.30-5.70) 4.28 x10^6/uL (4.30-5.70) Hemoglobin 12.4 g/dL (13.0-17.5) 11.8 g/dL (13.0-17.5) Hematocrit 38.5 % (39.0-53.0) 36.6 % (39.0-53.0) Mean Corpuscular Volume 85 fL (79-100) 86 fL (79-100) Mean Corpuscular Hemoglobin 27 pg (25-35) 28 pg (25-35) Mean Corpuscular Hemoglobin Concent 32 g/dL (31-37) 32 g/dL (31-37) Red Cell Distribution Width 13.7 % (11.5-14.5) 13.9 % (11.5-14.5) Platelet Count 357 x10^3/uL (140-400) 358 x10^3/uL (140-400) Sodium Level 142 mmol/L (136-145) 143 mmol/L (136-145) Potassium Level 3.9 mmol/L (3.5-5.1) 4.0 mmol/L (3.5-5.1) Chloride Level 104 mmol/L (98-107) 106 mmol/L (98-107) Carbon Dioxide Level 29 mmol/L (21-32) 27 mmol/L (21-32) Anion Gap 9 (6-14) 10 (6-14) Blood Urea Nitrogen 28 mg/dL (8-26) 24 mg/dL (8-26) Creatinine 0.9 mg/dL (0.7-1.3) 0.9 mg/dL (0.7-1.3) Estimated GFR (Cockcroft-Gault) 100.9 100.9 Glucose Level 113 mg/dL (70-99) 96 mg/dL (70-99) Calcium Level 8.3 mg/dL (8.5-10.1) 8.2 mg/dL (8.5-10.1) Neutrophils (%) (Auto) 69 % (31-73) Lymphocytes (%) (Auto) 12 % (24-48) Monocytes (%) (Auto) 16 % (0-9) Eosinophils (%) (Auto) 3 % (0-3) Basophils (%) (Auto) 0 % (0-3) Neutrophils # (Auto) 6.1 x10^3/uL (1.8-7.7) Lymphocytes # (Auto) 1.0 x10^3/uL (1.0-4.8) Monocytes # (Auto) 1.4 x10^3/uL (0.0-1.1) Eosinophils # (Auto) 0.2 x10^3/uL (0.0-0.7) Basophils # (Auto) 0.0 x10^3/uL (0.0-0.2) Comment Review of Relevant I have reviewed the following items priscilla (where applicable) has been applied. Labs Laboratory Tests Test 10/18/19 19:15 10/19/19 03:11 White Blood Count 12.2 x10^3/uL (4.0-11.0) 8.8 x10^3/uL (4.0-11.0) Red Blood Count 4.54 x10^6/uL (4.30-5.70) 4.28 x10^6/uL (4.30-5.70) Hemoglobin 12.4 g/dL (13.0-17.5) 11.8 g/dL (13.0-17.5) Hematocrit 38.5 % (39.0-53.0) 36.6 % (39.0-53.0) Mean Corpuscular Volume 85 fL (79-100) 86 fL (79-100) Mean Corpuscular Hemoglobin 27 pg (25-35) 28 pg (25-35) Mean Corpuscular Hemoglobin Concent 32 g/dL (31-37) 32 g/dL (31-37) Red Cell Distribution Width 13.7 % (11.5-14.5) 13.9 % (11.5-14.5) Platelet Count 357 x10^3/uL (140-400) 358 x10^3/uL (140-400) Sodium Level 142 mmol/L (136-145) 143 mmol/L (136-145) Potassium Level 3.9 mmol/L (3.5-5.1) 4.0 mmol/L (3.5-5.1) Chloride Level 104 mmol/L (98-107) 106 mmol/L (98-107) Carbon Dioxide Level 29 mmol/L (21-32) 27 mmol/L (21-32) Anion Gap 9 (6-14) 10 (6-14) Blood Urea Nitrogen 28 mg/dL (8-26) 24 mg/dL (8-26) Creatinine 0.9 mg/dL (0.7-1.3) 0.9 mg/dL (0.7-1.3) Estimated GFR (Cockcroft-Gault) 100.9 100.9 Glucose Level 113 mg/dL (70-99) 96 mg/dL (70-99) Calcium Level 8.3 mg/dL (8.5-10.1) 8.2 mg/dL (8.5-10.1) Neutrophils (%) (Auto) 69 % (31-73) Lymphocytes (%) (Auto) 12 % (24-48) Monocytes (%) (Auto) 16 % (0-9) Eosinophils (%) (Auto) 3 % (0-3) Basophils (%) (Auto) 0 % (0-3) Neutrophils # (Auto) 6.1 x10^3/uL (1.8-7.7) Lymphocytes # (Auto) 1.0 x10^3/uL (1.0-4.8) Monocytes # (Auto) 1.4 x10^3/uL (0.0-1.1) Eosinophils # (Auto) 0.2 x10^3/uL (0.0-0.7) Basophils # (Auto) 0.0 x10^3/uL (0.0-0.2) Laboratory Tests Test 10/18/19 19:15 10/19/19 03:11 White Blood Count 12.2 x10^3/uL (4.0-11.0) 8.8 x10^3/uL (4.0-11.0) Red Blood Count 4.54 x10^6/uL (4.30-5.70) 4.28 x10^6/uL (4.30-5.70) Hemoglobin 12.4 g/dL (13.0-17.5) 11.8 g/dL (13.0-17.5) Hematocrit 38.5 % (39.0-53.0) 36.6 % (39.0-53.0) Mean Corpuscular Volume 85 fL (79-100) 86 fL (79-100) Mean Corpuscular Hemoglobin 27 pg (25-35) 28 pg (25-35) Mean Corpuscular Hemoglobin Concent 32 g/dL (31-37) 32 g/dL (31-37) Red Cell Distribution Width 13.7 % (11.5-14.5) 13.9 % (11.5-14.5) Platelet Count 357 x10^3/uL (140-400) 358 x10^3/uL (140-400) Sodium Level 142 mmol/L (136-145) 143 mmol/L (136-145) Potassium Level 3.9 mmol/L (3.5-5.1) 4.0 mmol/L (3.5-5.1) Chloride Level 104 mmol/L (98-107) 106 mmol/L (98-107) Carbon Dioxide Level 29 mmol/L (21-32) 27 mmol/L (21-32) Anion Gap 9 (6-14) 10 (6-14) Blood Urea Nitrogen 28 mg/dL (8-26) 24 mg/dL (8-26) Creatinine 0.9 mg/dL (0.7-1.3) 0.9 mg/dL (0.7-1.3) Estimated GFR (Cockcroft-Gault) 100.9 100.9 Glucose Level 113 mg/dL (70-99) 96 mg/dL (70-99) Calcium Level 8.3 mg/dL (8.5-10.1) 8.2 mg/dL (8.5-10.1) Neutrophils (%) (Auto) 69 % (31-73) Lymphocytes (%) (Auto) 12 % (24-48) Monocytes (%) (Auto) 16 % (0-9) Eosinophils (%) (Auto) 3 % (0-3) Basophils (%) (Auto) 0 % (0-3) Neutrophils # (Auto) 6.1 x10^3/uL (1.8-7.7) Lymphocytes # (Auto) 1.0 x10^3/uL (1.0-4.8) Monocytes # (Auto) 1.4 x10^3/uL (0.0-1.1) Eosinophils # (Auto) 0.2 x10^3/uL (0.0-0.7) Basophils # (Auto) 0.0 x10^3/uL (0.0-0.2) Medications Current Medications Acetaminophen (Tylenol Supp) 650 mg PRN Q4HRS PRN CO TEMP OVER 100.4F OR MILD PAIN; Start 10/15/19 at 21:00 Albuterol Sulfate (Ventolin Neb Soln) 2.5 mg PRN Q4HRS PRN NEB SHORTNESS OF BREATH Last administered on 10/16/19at 07:40; Start 10/15/19 at 21:00; Stop 10/16/19 at 07:53; Status DC Sodium Chloride 1,000 ml @ 75 mls/hr [id number] IV Last administered on 10/19/19 06:04; Start 10/15/19 at 22:00 Famotidine (Pepcid Vial) 20 mg QHS IVP Last administered on 10/18/19 21:00; Start 10/15/19 at 21:00 Fentanyl Citrate (Fentanyl 2ml Vial) 50 mcg PRN Q2HR PRN IVP SEVERE PAIN 7-10 Last administered on 10/19/19 04:01; Start 10/15/19 at 21:00 Ondansetron HCl (Zofran) 4 mg PRN Q6HRS PRN IVP NAUSEA/VOMITING 1ST CHOICE; Start 10/15/19 at 21:00 Labetalol HCl (Normodyne Iv Push) 10 mg PRN Q2HR PRN IVP HYPERTENSION Last administered on 10/17/19at 04:27; Start 10/15/19 at 21:00 Ceftriaxone Sodium (Rocephin) 1 gm Q24H IVP Last administered on 10/17/19at 22:10; Start 10/15/19 at 22:00; Stop 10/18/19 at 11:21; Status DC Azithromycin 250 mg/Sodium Chloride 250 ml @ 250 mls/hr Q24H IV Last administered on 10/17/19at 22:11; Start 10/15/19 at 22:00; Stop 10/18/19 at 11:21; Status DC Benzocaine (Hurricaine One) 1 spray PRN QID PRN MM PAIN Last administered on 10/15/19at 22:06; Start 10/15/19 at 21:30; Stop 10/16/19 at 07:46; Status DC Influenza Virus Vaccine Quadrival (Afluria Quad 2019-20 (3yr Up) Syringe) 0.5 ml ONCE ONCE VAX IM ; Start 10/16/19 at 09:00; Stop 10/16/19 at 09:01; Status DC Phenol (Chloraseptic) 1 spray PRN Q2HR PRN PO SORE THROAT; Start 10/16/19 at 07 :45; Status Cancel Phenol (Chloraseptic) 1 spray PRN Q2HR PRN PO SORE THROAT; Start 10/16/19 at 08:00 Albuterol Sulfate (Ventolin Neb Soln) 2.5 mg Q4H NEB Last administered on 10/19/19at 07:34; Start 10/16/19 at 12:00 Labetalol HCl (Normodyne Iv Push) 10 mg PRN Q2HR PRN IVP HYPERTENSION; Start 10/16/19 at 09:15; Stop 10/16/19 at 10:40; Status DC Iohexol (Omnipaque 300 Mg/ml) 400 ml 1X ONCE CO Last administered on 10/16/19at 10:45; Start 10/16/19 at 10:45; Stop 10/16/19 at 10:46; Status DC Info (CONTRAST GIVEN -- Rx MONITORING) 1 each PRN DAILY PRN MC SEE COMMENTS; Start 10/16/19 at 10:45; Stop 10/18/19 at 10:44; Status DC Magnesium Citrate (Citroma) 296 ml 1X ONCE NG Last administered on 10/16/19at 19:08; Start 10/16/19 at 18:45; Stop 10/16/19 at 18:46; Status DC Bisacodyl (Dulcolax Tab) 10 mg 1X ONCE PO ; Start 10/17/19 at 10:30; Stop 10/17/19 at 07:26; Status DC Methylnaltrexone [place] (Relistor) 12 mg 1X ONCE SQ Last administered on 10/17/19at 10:01; Start 10/17/19 at 07:30; Stop 10/17/19 at 07:31; Status DC Polyethylene Glycol (miraLAX PACKET) 17 gm DAILY PO Last administered on 10/17/19at 07:57; Start 10/17/19 at 09:00 Simethicone (Gas-X) 80 mg PRN AFTMEALHC PRN PO GAS / BLOATING Last administered on 10/17/19at 10:00; Start 10/17/19 at 09:30 Bisacodyl (Dulcolax Tab) 10 mg 1X PRN PO CONSTIPATION Last administered on 10/17/19at 10:00; Start 10/17/19 at 09:45 Magnesium Citrate (Citroma) 296 ml 1X ONCE PO Last administered on 10/17/19at 18:19; Start 10/17/19 at 18:00; Stop 10/17/19 at 18:01; Status DC Piperacillin Sod/ Tazobactam Sod (Zosyn Per Pharmacy) 1 each PRN DAILY PRN MC SEE COMMENTS; Start 10/18/19 at 11:30; Stop 10/18/19 at 11:25; Status DC Meropenem 1 gm/ Sodium Chloride 100 ml @ 200 mls/hr Q8HRS IV Last administered on 10/19/19at 06:03; Start 10/18/19 at 14:00 Ringer's Solution 1,000 ml @ 75 mls/hr 1X ONCE IV Last administered on 10/18/19at 13:32; Start 10/18/19 at 13:30; Stop 10/19/19 at 02:49; Status DC Albuterol/ Ipratropium (Duoneb) 3 ml 1X ONCE NEB Last administered on 10/18/19at 13:45; Start 10/18/19 at 13:45; Stop 1/3/20 at 13:55; Status DC Propofol 40 ml @ As Directed STK-MED ONCE IV ; Start 10/18/19 at 13:57; Stop 10/18/19 at 13:57; Status DC Vitals/I & O Vital Sign - Last 24 Hours 10/18/19 10/18/19 10/18/19 10/18/19 11:00 11:46 13:23 13:28 Temp 98.6 99.0 98.6 99.0 Pulse 87 103 Resp 18 20 B/P (MAP) 154/96 (115) Pulse Ox 94 99 94 O2 Delivery Nasal Cannula Nasal Cannula Nasal Cannula O2 Flow Rate 2.0 1.0 1.0 10/18/19 10/18/19 10/18/19 10/18/19 13:47 14:28 14:49 15:00 Temp 97.8 97.5 97.8 97.5 Pulse 94 100 98 Resp 20 20 18 B/P (MAP) 138/72 141/81 154/86 (108) Pulse Ox 93 94 96 91 O2 Delivery Nasal Cannula Nasal Cannula Nasal Cannula Nasal Cannula O2 Flow Rate 2.0 2 1 2.0 10/18/19 10/18/19 10/18/19 10/18/19 15:17 15:47 16:53 17:58 Resp 18 18 18 Pulse Ox 91 O2 Delivery Room Air Room Air Nasal Cannula Room Air O2 Flow Rate 1.0 10/18/19 10/18/19 10/18/19 10/18/19 19:00 19:25 20:00 21:00 Temp 98.7 98.7 Pulse 103 Resp 16 20 B/P (MAP) 150/84 (106) Pulse Ox 95 93 93 O2 Delivery Nasal Cannula Nasal Cannula Nasal Cannula Nasal Cannula O2 Flow Rate 1.0 1.0 1.0 1.0 10/18/19 10/18/19 10/19/19 10/19/19 21:30 23:00 03:00 04:01 Temp 98.4 98.4 98.4 98.4 Pulse 101 80 Resp 20 18 18 20 B/P (MAP) 156/90 (112) 161/74 (103) Pulse Ox 94 94 98 94 O2 Delivery Nasal Cannula Nasal Cannula Nasal Cannula Nasal Cannula O2 Flow Rate 1.0 1.0 1.0 1.0 10/19/19 10/19/19 10/19/19 04:31 07:00 07:36 Temp 98.2 98.2 Pulse 80 Resp 20 16 B/P (MAP) 154/86 (108) Pulse Ox 93 97 O2 Delivery Nasal Cannula Room Air Nasal Cannula O2 Flow Rate 1.0 1.0 Intake and Output 10/18/19 10/18/19 10/19/19 15:00 23:00 07:00 Intake Total 500 ml 240 ml 450 ml Output Total 300 ml Balance 500 ml 240 ml 150 ml Hemodynamically unstable?: No Is patient in severe pain?: Yes Is NPO status required?: Yes JOSÉ ANTONIO HERBERT MD Oct 19, 2019 09:45
[2019-10-19 11:00] VITALS: BP 144/87
--- NOTE | 2019-10-19 11:55 | PDOC ---
SURGICAL PROGRESS NOTE Subjective still distended, but less so passing gas Vital Signs Vital Signs Date Time Temp Pulse Resp B/P (MAP) Pulse Ox O2 Delivery O2 Flow Rate FiO2 10/19/19 11:00 98.1 92 18 144/87 (106) 92 Room Air 98.1 10/19/19 07:36 1.0 I&O Intake and Output 10/19/19 07:00 Intake Total 1190 ml Output Total 300 ml Balance 890 ml Intake Oral 690 ml IV Total 500 ml Output Urine Total 300 ml # Voids 1 # Bowel Movements 2 PATIENT HAS A SETHI: No General: Alert, No acute distress Abdomen: Other (distended, soft) Labs Laboratory Tests Test 10/18/19 19:15 10/19/19 03:11 White Blood Count 12.2 x10^3/uL (4.0-11.0) 8.8 x10^3/uL (4.0-11.0) Red Blood Count 4.54 x10^6/uL (4.30-5.70) 4.28 x10^6/uL (4.30-5.70) Hemoglobin 12.4 g/dL (13.0-17.5) 11.8 g/dL (13.0-17.5) Hematocrit 38.5 % (39.0-53.0) 36.6 % (39.0-53.0) Mean Corpuscular Volume 85 fL (79-100) 86 fL (79-100) Mean Corpuscular Hemoglobin 27 pg (25-35) 28 pg (25-35) Mean Corpuscular Hemoglobin Concent 32 g/dL (31-37) 32 g/dL (31-37) Red Cell Distribution Width 13.7 % (11.5-14.5) 13.9 % (11.5-14.5) Platelet Count 357 x10^3/uL (140-400) 358 x10^3/uL (140-400) Sodium Level 142 mmol/L (136-145) 143 mmol/L (136-145) Potassium Level 3.9 mmol/L (3.5-5.1) 4.0 mmol/L (3.5-5.1) Chloride Level 104 mmol/L (98-107) 106 mmol/L (98-107) Carbon Dioxide Level 29 mmol/L (21-32) 27 mmol/L (21-32) Anion Gap 9 (6-14) 10 (6-14) Blood Urea Nitrogen 28 mg/dL (8-26) 24 mg/dL (8-26) Creatinine 0.9 mg/dL (0.7-1.3) 0.9 mg/dL (0.7-1.3) Estimated GFR (Cockcroft-Gault) 100.9 100.9 Glucose Level 113 mg/dL (70-99) 96 mg/dL (70-99) Calcium Level 8.3 mg/dL (8.5-10.1) 8.2 mg/dL (8.5-10.1) Neutrophils (%) (Auto) 69 % (31-73) Lymphocytes (%) (Auto) 12 % (24-48) Monocytes (%) (Auto) 16 % (0-9) Eosinophils (%) (Auto) 3 % (0-3) Basophils (%) (Auto) 0 % (0-3) Neutrophils # (Auto) 6.1 x10^3/uL (1.8-7.7) Lymphocytes # (Auto) 1.0 x10^3/uL (1.0-4.8) Monocytes # (Auto) 1.4 x10^3/uL (0.0-1.1) Eosinophils # (Auto) 0.2 x10^3/uL (0.0-0.7) Basophils # (Auto) 0.0 x10^3/uL (0.0-0.2) Laboratory Tests Test 10/18/19 19:15 10/19/19 03:11 White Blood Count 12.2 x10^3/uL (4.0-11.0) 8.8 x10^3/uL (4.0-11.0) Red Blood Count 4.54 x10^6/uL (4.30-5.70) 4.28 x10^6/uL (4.30-5.70) Hemoglobin 12.4 g/dL (13.0-17.5) 11.8 g/dL (13.0-17.5) Hematocrit 38.5 % (39.0-53.0) 36.6 % (39.0-53.0) Mean Corpuscular Volume 85 fL (79-100) 86 fL (79-100) Mean Corpuscular Hemoglobin 27 pg (25-35) 28 pg (25-35) Mean Corpuscular Hemoglobin Concent 32 g/dL (31-37) 32 g/dL (31-37) Red Cell Distribution Width 13.7 % (11.5-14.5) 13.9 % (11.5-14.5) Platelet Count 357 x10^3/uL (140-400) 358 x10^3/uL (140-400) Sodium Level 142 mmol/L (136-145) 143 mmol/L (136-145) Potassium Level 3.9 mmol/L (3.5-5.1) 4.0 mmol/L (3.5-5.1) Chloride Level 104 mmol/L (98-107) 106 mmol/L (98-107) Carbon Dioxide Level 29 mmol/L (21-32) 27 mmol/L (21-32) Anion Gap 9 (6-14) 10 (6-14) Blood Urea Nitrogen 28 mg/dL (8-26) 24 mg/dL (8-26) Creatinine 0.9 mg/dL (0.7-1.3) 0.9 mg/dL (0.7-1.3) Estimated GFR (Cockcroft-Gault) 100.9 100.9 Glucose Level 113 mg/dL (70-99) 96 mg/dL (70-99) Calcium Level 8.3 mg/dL (8.5-10.1) 8.2 mg/dL (8.5-10.1) Neutrophils (%) (Auto) 69 % (31-73) Lymphocytes (%) (Auto) 12 % (24-48) Monocytes (%) (Auto) 16 % (0-9) Eosinophils (%) (Auto) 3 % (0-3) Basophils (%) (Auto) 0 % (0-3) Neutrophils # (Auto) 6.1 x10^3/uL (1.8-7.7) Lymphocytes # (Auto) 1.0 x10^3/uL (1.0-4.8) Monocytes # (Auto) 1.4 x10^3/uL (0.0-1.1) Eosinophils # (Auto) 0.2 x10^3/uL (0.0-0.7) Basophils # (Auto) 0.0 x10^3/uL (0.0-0.2) Assessment/Plan colonic ileus no new surg recs MONIQUE GAO MD Oct 19, 2019 11:55
--- NOTE | 2019-10-19 14:18 | PDOC ---
Infectious Disease Note Vital Sign Vital Signs Vital Signs Date Time Temp Pulse Resp B/P (MAP) Pulse Ox O2 Delivery O2 Flow Rate FiO2 10/19/19 13:31 92 Nasal Cannula 1.0 10/19/19 11:00 98.1 92 18 144/87 (106) 98.1 Labs Lab Laboratory Tests Test 10/18/19 19:15 10/19/19 03:11 White Blood Count 12.2 x10^3/uL (4.0-11.0) 8.8 x10^3/uL (4.0-11.0) Red Blood Count 4.54 x10^6/uL (4.30-5.70) 4.28 x10^6/uL (4.30-5.70) Hemoglobin 12.4 g/dL (13.0-17.5) 11.8 g/dL (13.0-17.5) Hematocrit 38.5 % (39.0-53.0) 36.6 % (39.0-53.0) Mean Corpuscular Volume 85 fL (79-100) 86 fL (79-100) Mean Corpuscular Hemoglobin 27 pg (25-35) 28 pg (25-35) Mean Corpuscular Hemoglobin Concent 32 g/dL (31-37) 32 g/dL (31-37) Red Cell Distribution Width 13.7 % (11.5-14.5) 13.9 % (11.5-14.5) Platelet Count 357 x10^3/uL (140-400) 358 x10^3/uL (140-400) Sodium Level 142 mmol/L (136-145) 143 mmol/L (136-145) Potassium Level 3.9 mmol/L (3.5-5.1) 4.0 mmol/L (3.5-5.1) Chloride Level 104 mmol/L (98-107) 106 mmol/L (98-107) Carbon Dioxide Level 29 mmol/L (21-32) 27 mmol/L (21-32) Anion Gap 9 (6-14) 10 (6-14) Blood Urea Nitrogen 28 mg/dL (8-26) 24 mg/dL (8-26) Creatinine 0.9 mg/dL (0.7-1.3) 0.9 mg/dL (0.7-1.3) Estimated GFR (Cockcroft-Gault) 100.9 100.9 Glucose Level 113 mg/dL (70-99) 96 mg/dL (70-99) Calcium Level 8.3 mg/dL (8.5-10.1) 8.2 mg/dL (8.5-10.1) Neutrophils (%) (Auto) 69 % (31-73) Lymphocytes (%) (Auto) 12 % (24-48) Monocytes (%) (Auto) 16 % (0-9) Eosinophils (%) (Auto) 3 % (0-3) Basophils (%) (Auto) 0 % (0-3) Neutrophils # (Auto) 6.1 x10^3/uL (1.8-7.7) Lymphocytes # (Auto) 1.0 x10^3/uL (1.0-4.8) Monocytes # (Auto) 1.4 x10^3/uL (0.0-1.1) Eosinophils # (Auto) 0.2 x10^3/uL (0.0-0.7) Basophils # (Auto) 0.0 x10^3/uL (0.0-0.2) Objective Assessment H. influenzae bacteremia from 10/16 at [facility] Colonic ileus s/p decompressive colonoscopy, ? ischemia s/p biopsy, 10/18. No surgical plans Leukocytosis Plan Plan of Care NGT is now out Feeling less distended Tolerating clear liquids Currently on meropenem - de-escalate soon Previously on Rocephin and azithromycin Records from [facility] Thank you [id number] Attending Co-Sign The patient was seen and interviewed as well as examined at the bedside. The chart was reviewed. The case was discussed. Agree with the plan of care. DELMA CANTU APRN Oct 19, 2019 14:18 KALE HALL MD Oct 19, 2019 15:00
[2019-10-19 15:00] VITALS: BP 146/89
--- NOTE | 2019-10-19 15:34 | CONS ---
DATE OF CONSULTATION: 10/19/2019 REQUESTING PHYSICIAN: Dr. Maye Shepard REASON FOR CONSULTATION: Gram-negative rods bacteremia. HISTORY OF PRESENT ILLNESS: This patient is a 69-year-old male who initially presented to [facility] with a 4-day history of constipation, abdominal distention, and bloating. A CT abdomen/pelvis with contrast demonstrated diffuse gaseous dilatation of the colon consistent with ileus/pseudoobstruction. NG tube was placed, and he was transferred to [facility] for further evaluation and treatment. He underwent a decompressive colonoscopy yesterday. Segmental colitis/ulcers suggestive of ischemia noted and biopsy taken. [facility] was notified of blood cultures positive for gram-negative rods, now identified with Haemophilus influenzae (sensitive to ceftriaxone, ciprofloxacin, and meropenem). He was initially on azithromycin and ceftriaxone and now meropenem. He has been asked to consult for further evaluation and antibiotic management. The patient says that he is feeling some better. He feels a little less distended, but still full. His NG tube has been removed. He is tolerating clear liquids. He denies nausea, vomiting, or cramps. Denies fevers, chills, sweats, or body aches. Denies shortness of air, cough, or chest discomfort. PAST MEDICAL HISTORY: Gout. PAST SURGICAL HISTORY: Decompressive colonoscopy with biopsy on 10/18/2019. FAMILY HISTORY: Noncontributory. SOCIAL HISTORY: The patient lives at home. Nonsmoker. He is retired and enjoys playing golf and traveling. He is . ALLERGIES: No known drug allergies. CURRENT MEDICATIONS: Meropenem since 10/18/2019. Previously on azithromycin and ceftriaxone. Albuterol, Dulcolax, Pepcid, fentanyl, labetalol, ondansetron, MiraLax, Chloraseptic, and Gas-X. REVIEW OF SYSTEMS: Per HPI, otherwise all other review of systems are negative. PHYSICAL EXAMINATION: VITAL SIGNS: Temperature 98.1, blood pressure 144/87, pulse rate 92, respiratory rate 18, and pulse oximetry 92% on 1 liter oxygen. BMI 27. GENERAL: The patient is propped up in bed, alert, and in no apparent distress. HEENT: Pupils are equally round. Small subconjunctival hemorrhage on the right. Oropharynx pink and moist, no lesions. NECK: Supple. LUNGS: Clear. HEART: S1, S2. ABDOMEN: Very distended, somewhat firm, and nontender. Hypoactive bowel sounds. EXTREMITIES: No gross edema or cyanosis. SKIN: Warm to touch. No signs of rash. NEUROLOGIC: Alert and oriented x 3. LABORATORY AND DIAGNOSTIC DATA: Today's WBC 8.8 from 12.2, hemoglobin 11.8, and platelets 258,000. Creatinine 0.9. BUN 24. Electrolytes are unremarkable. Total bilirubin 0.6, AST 27, ALT 27, and albumin 3.0. Carcinoembryonic antigen 3.3. CT abdomen/pelvis per HPI. Recent KUB showed mild decrease in gaseous distention which may represent ileus or Ellabell syndrome. IMPRESSION: 1. Haemophilus influenzae bacteremia from 10/16/2019 at [facility]. 2. Colonic ileus status post decompressive colonoscopy and biopsy of area concerning for ischemia on 10/18/2019. 3. Leukocytosis. PLAN: The NG tube is now out. The patient is feeling less distended and is tolerating clear liquids. He is currently on meropenem. We will deescalate soon. Maintain aspiration precautions. Records from [facility] were reviewed. Thank you, Dr. Shepard, for asking us to participate in this patient's care. Should you have further questions or concerns, please call. KALE HALL MD DR: JAX/whitney JOB#: [id number] / [id number]
--- NOTE | 2019-10-19 15:45 | PDOC ---
GI PROGRESS NOTES Date Date/Time DATE: 10/19/19 TIME: 15:42 Subjective Subjective Clinically improving. Ambulating in the halls. Tolerating clear liquid diet. Passing gas but little stool. Objective Vitals Vital Signs Date Time Temp Pulse Resp B/P (MAP) Pulse Ox O2 Delivery O2 Flow Rate FiO2 10/19/19 15:00 98.4 100 16 146/89 (108) 91 Room Air 98.4 10/19/19 14:08 94 Room Air 10/19/19 14:01 Room Air 10/19/19 13:31 92 Nasal Cannula 1.0 10/19/19 11:00 98.1 92 18 144/87 (106) 92 Room Air 98.1 10/19/19 08:00 Nasal Cannula 10/19/19 07:36 97 Nasal Cannula 1.0 10/19/19 07:00 98.2 80 16 154/86 (108) 93 Room Air 98.2 10/19/19 04:31 20 Nasal Cannula 1.0 10/19/19 04:01 20 94 Nasal Cannula 1.0 10/19/19 03:00 98.4 80 18 161/74 (103) 98 Nasal Cannula 1.0 98.4 10/18/19 23:00 98.4 101 18 156/90 (112) 94 Nasal Cannula 1.0 98.4 10/18/19 21:30 20 94 Nasal Cannula 1.0 10/18/19 21:00 20 93 Nasal Cannula 1.0 10/18/19 20:00 Nasal Cannula 1.0 10/18/19 19:25 93 Nasal Cannula 1.0 10/18/19 19:00 98.7 103 16 150/84 (106) 95 Nasal Cannula 1.0 98.7 10/18/19 17:58 18 Room Air 10/18/19 16:53 91 Nasal Cannula 1.0 10/18/19 15:47 18 Room Air Labs Labs Laboratory Tests Test 10/18/19 19:15 10/19/19 03:11 White Blood Count 12.2 x10^3/uL (4.0-11.0) 8.8 x10^3/uL (4.0-11.0) Red Blood Count 4.54 x10^6/uL (4.30-5.70) 4.28 x10^6/uL (4.30-5.70) Hemoglobin 12.4 g/dL (13.0-17.5) 11.8 g/dL (13.0-17.5) Hematocrit 38.5 % (39.0-53.0) 36.6 % (39.0-53.0) Mean Corpuscular Volume 85 fL (79-100) 86 fL (79-100) Mean Corpuscular Hemoglobin 27 pg (25-35) 28 pg (25-35) Mean Corpuscular Hemoglobin Concent 32 g/dL (31-37) 32 g/dL (31-37) Red Cell Distribution Width 13.7 % (11.5-14.5) 13.9 % (11.5-14.5) Platelet Count 357 x10^3/uL (140-400) 358 x10^3/uL (140-400) Sodium Level 142 mmol/L (136-145) 143 mmol/L (136-145) Potassium Level 3.9 mmol/L (3.5-5.1) 4.0 mmol/L (3.5-5.1) Chloride Level 104 mmol/L (98-107) 106 mmol/L (98-107) Carbon Dioxide Level 29 mmol/L (21-32) 27 mmol/L (21-32) Anion Gap 9 (6-14) 10 (6-14) Blood Urea Nitrogen 28 mg/dL (8-26) 24 mg/dL (8-26) Creatinine 0.9 mg/dL (0.7-1.3) 0.9 mg/dL (0.7-1.3) Estimated GFR (Cockcroft-Gault) 100.9 100.9 Glucose Level 113 mg/dL (70-99) 96 mg/dL (70-99) Calcium Level 8.3 mg/dL (8.5-10.1) 8.2 mg/dL (8.5-10.1) Neutrophils (%) (Auto) 69 % (31-73) Lymphocytes (%) (Auto) 12 % (24-48) Monocytes (%) (Auto) 16 % (0-9) Eosinophils (%) (Auto) 3 % (0-3) Basophils (%) (Auto) 0 % (0-3) Neutrophils # (Auto) 6.1 x10^3/uL (1.8-7.7) Lymphocytes # (Auto) 1.0 x10^3/uL (1.0-4.8) Monocytes # (Auto) 1.4 x10^3/uL (0.0-1.1) Eosinophils # (Auto) 0.2 x10^3/uL (0.0-0.7) Basophils # (Auto) 0.0 x10^3/uL (0.0-0.2) Physical Exam Physical Exam Chest clear Abdomen soft, less distended, no point tenderness or rebound. Bowel sounds are decreased but present. Improved from yesterday Assessment Assessment Colonic ileus. Acute onset several days ago without obvious cause. Colonoscopy reveals dilated cecum with ulceration suggestive of ischemic colitis. Whether this is from the distention or was the cause is unclear. Clinically, however he is improving Plan Plan Slowly advance diet to full liquids but not further Continue ambulating in the halls Monitor labs Hemodynamically unstable?: No Is patient in severe pain?: Yes Is NPO status required?: Yes MAU REYNOSO MD Oct 19, 2019 15:45
[2019-10-19 19:00] VITALS: BP 157/93
[2019-10-19] MEDS: FAMOTIDINE 20 MG/2 ML VIAL IVP SCH (21:37)
[2019-10-19] MEDS: LACTOBACILLUS RHAMNOSUS GG 1 CAPSULE. PO SCH (21:38)
[2019-10-19 23:00] VITALS: BP 154/88
[2019-10-20] MEDS: ALBUTEROL SULFATE 2.5 MG/3 ML NEBU. NEB SCH ×6 (00:41→20:19)
[2019-10-20 03:00] VITALS: BP 159/89
[2019-10-20] MEDS: MEROPENEM 1 GM in IV NORMAL SALINE 100ML 100 ML IV SCH (05:35)
[2019-10-20 07:00] VITALS: BP 157/88
[2019-10-20] MEDS: POLYETHYLENE GLYCOL 3350 17 GM PACKET. PO SCH (09:00)
--- NOTE | 2019-10-20 09:05 | PDOC ---
SURGICAL PROGRESS NOTE Subjective was up walking the halls passing gas taking some full liquids Vital Signs Vital Signs Date Time Temp Pulse Resp B/P (MAP) Pulse Ox O2 Delivery O2 Flow Rate FiO2 10/20/19 07:28 96 Room Air 10/20/19 07:00 99.2 100 16 157/88 (111) 99.2 10/19/19 13:31 1.0 I&O Intake and Output 10/20/19 07:00 Intake Total 1000 ml Balance 1000 ml IV Total 1000 ml # Voids 6 # Bowel Movements 1 PATIENT HAS A SETHI: No General: Alert, Oriented X3, No acute distress Lungs: Normal air movement Abdomen: Other (distended, soft) Labs Laboratory Tests Test 10/18/19 19:15 10/19/19 03:11 White Blood Count 12.2 x10^3/uL (4.0-11.0) 8.8 x10^3/uL (4.0-11.0) Red Blood Count 4.54 x10^6/uL (4.30-5.70) 4.28 x10^6/uL (4.30-5.70) Hemoglobin 12.4 g/dL (13.0-17.5) 11.8 g/dL (13.0-17.5) Hematocrit 38.5 % (39.0-53.0) 36.6 % (39.0-53.0) Mean Corpuscular Volume 85 fL (79-100) 86 fL (79-100) Mean Corpuscular Hemoglobin 27 pg (25-35) 28 pg (25-35) Mean Corpuscular Hemoglobin Concent 32 g/dL (31-37) 32 g/dL (31-37) Red Cell Distribution Width 13.7 % (11.5-14.5) 13.9 % (11.5-14.5) Platelet Count 357 x10^3/uL (140-400) 358 x10^3/uL (140-400) Sodium Level 142 mmol/L (136-145) 143 mmol/L (136-145) Potassium Level 3.9 mmol/L (3.5-5.1) 4.0 mmol/L (3.5-5.1) Chloride Level 104 mmol/L (98-107) 106 mmol/L (98-107) Carbon Dioxide Level 29 mmol/L (21-32) 27 mmol/L (21-32) Anion Gap 9 (6-14) 10 (6-14) Blood Urea Nitrogen 28 mg/dL (8-26) 24 mg/dL (8-26) Creatinine 0.9 mg/dL (0.7-1.3) 0.9 mg/dL (0.7-1.3) Estimated GFR (Cockcroft-Gault) 100.9 100.9 Glucose Level 113 mg/dL (70-99) 96 mg/dL (70-99) Calcium Level 8.3 mg/dL (8.5-10.1) 8.2 mg/dL (8.5-10.1) Neutrophils (%) (Auto) 69 % (31-73) Lymphocytes (%) (Auto) 12 % (24-48) Monocytes (%) (Auto) 16 % (0-9) Eosinophils (%) (Auto) 3 % (0-3) Basophils (%) (Auto) 0 % (0-3) Neutrophils # (Auto) 6.1 x10^3/uL (1.8-7.7) Lymphocytes # (Auto) 1.0 x10^3/uL (1.0-4.8) Monocytes # (Auto) 1.4 x10^3/uL (0.0-1.1) Eosinophils # (Auto) 0.2 x10^3/uL (0.0-0.7) Basophils # (Auto) 0.0 x10^3/uL (0.0-0.2) I have reviewed the following KUB done earlier, slight improvement? Assessment/Plan no surgical recs will sign off please call if needed MONIQUE GAO MD Oct 20, 2019 09:05
--- NOTE | 2019-10-20 09:09 | RAD ---
KUB History: Ileus Comparison: October 18, 2019 Findings: Single supine AP view of the abdomen is submitted. There is again prominent gas dilatation of the large and small bowel, overall degree of gas dilatation probably unchanged. There are multiple calcifications in the bilateral pelvis more likely phleboliths. Exam is insufficient for the evaluation for free air. Impression: 1. There is again prominent gas dilatation of segments of large and small bowel which may be due to ileus unless suspicion for distal colonic obstruction. Electronically signed by: Lorenzo Echols MD (10/20/2019 9:06 AM) [id number]
--- NOTE | 2019-10-20 09:56 | PDOC ---
PROGRESS NOTES Chief Complaint Chief Complaint IMPRESSION SEVERE ILEUS, SLOW TO RESOLVE< Colonoscopy reveals dilated cecum with ulceration suggestive of ischemic colitis - neg barium enema study RECENT CONSTIPATION FULL CODE HX GOUT NO signif abd hx, no signif past medical hx ct abd prior to admit [facility] ER suggested RLL Consolidation plan ct chest, abd, pelvis psa esr consult pulm medicine STOOL OVA/PARASITES SPE/IPE NOTES TRAVEL TO [facility] IN AUG 2019, VACATION X 5-6 DAYS, No symptoms until Sep History of Present Illness History of Present Illness still bloated NOW stooling DIRTY LIQUID OUTPUT plus GAS s/p RELISTOR - no rela output WBC 12 no fevers- PLAN: NOsurgical plans pt/ot (CAME from HOME< OTHERWISE PREV HEALTHY) stool culture, ova/ parasites ct abdomen /pelvis/ chest 10/20 ESR SPE/IPE Vitals Vitals Vital Signs Date Time Temp Pulse Resp B/P (MAP) Pulse Ox O2 Delivery O2 Flow Rate FiO2 10/20/19 07:28 96 Room Air 10/20/19 07:00 99.2 100 16 157/88 (111) 99.2 10/19/19 13:31 1.0 Physical Exam General: Alert, Oriented X3, Cooperative, No acute distress Heart: Regular rate, Normal S1, Normal S2 Lungs: Clear Abdomen: Normal bowel sounds, No tenderness, Other (distended, soft, tense) Extremities: No clubbing, No cyanosis Skin: No rashes Labs LABS Limited Gastrografin enema HISTORY: Possible distal sigmoid colon obstruction. PROCEDURE: Study using Gastrografin and limited to the sigmoid colon only was requested. FINDINGS: There is prompt filling of the rectum and sigmoid colon with barium. The patient was rotated into right lateral, left lateral, supine and prone positions with fluoroscopic observation, and no sigmoid colon occlusion or fixed narrowing is seen. Postprocedure abdominal radiograph demonstrates mild extension of contrast into the descending colon. Severe gaseous distention of large and small bowel loops throughout the visualized abdomen. IMPRESSION: No evidence of sigmoid colon occlusion. 6 spot images were obtained. Fluoroscopy time: 1.8 minutes. Electronically signed by: Fazal Wang MD (10/16/2019 11:38 AM) [facility] DICTATED and SIGNED BY: FAZAL WANG MD DATE: 10/16/19 1138 KUB History: Ileus Comparison: October 18, 2019 Findings: Single supine AP view of the abdomen is submitted. There is again prominent gas dilatation of the large and small bowel, overall degree of gas dilatation probably unchanged. There are multiple calcifications in the bilateral pelvis more likely phleboliths. Exam is insufficient for the evaluation for free air. Impression: 1. There is again prominent gas dilatation of segments of large and small bowel which may be due to ileus unless suspicion for distal colonic obstruction. Electronically signed by: Mary Grace Marsh MD (10/20/2019 9:06 AM) [facility] [id number] DICTATED and SIGNED BY: MARY GRACE MARSH MD DATE: 10/20/19905 Comment Review of Relevant I have reviewed the following items priscilla (where applicable) has been applied. Labs Laboratory Tests Test 10/18/19 19:15 10/19/19 03:11 White Blood Count 12.2 x10^3/uL (4.0-11.0) 8.8 x10^3/uL (4.0-11.0) Red Blood Count 4.54 x10^6/uL (4.30-5.70) 4.28 x10^6/uL (4.30-5.70) Hemoglobin 12.4 g/dL (13.0-17.5) 11.8 g/dL (13.0-17.5) Hematocrit 38.5 % (39.0-53.0) 36.6 % (39.0-53.0) Mean Corpuscular Volume 85 fL (79-100) 86 fL (79-100) Mean Corpuscular Hemoglobin 27 pg (25-35) 28 pg (25-35) Mean Corpuscular Hemoglobin Concent 32 g/dL (31-37) 32 g/dL (31-37) Red Cell Distribution Width 13.7 % (11.5-14.5) 13.9 % (11.5-14.5) Platelet Count 357 x10^3/uL (140-400) 358 x10^3/uL (140-400) Sodium Level 142 mmol/L (136-145) 143 mmol/L (136-145) Potassium Level 3.9 mmol/L (3.5-5.1) 4.0 mmol/L (3.5-5.1) Chloride Level 104 mmol/L (98-107) 106 mmol/L (98-107) Carbon Dioxide Level 29 mmol/L (21-32) 27 mmol/L (21-32) Anion Gap 9 (6-14) 10 (6-14) Blood Urea Nitrogen 28 mg/dL (8-26) 24 mg/dL (8-26) Creatinine 0.9 mg/dL (0.7-1.3) 0.9 mg/dL (0.7-1.3) Estimated GFR (Cockcroft-Gault) 100.9 100.9 Glucose Level 113 mg/dL (70-99) 96 mg/dL (70-99) Calcium Level 8.3 mg/dL (8.5-10.1) 8.2 mg/dL (8.5-10.1) Neutrophils (%) (Auto) 69 % (31-73) Lymphocytes (%) (Auto) 12 % (24-48) Monocytes (%) (Auto) 16 % (0-9) Eosinophils (%) (Auto) 3 % (0-3) Basophils (%) (Auto) 0 % (0-3) Neutrophils # (Auto) 6.1 x10^3/uL (1.8-7.7) Lymphocytes # (Auto) 1.0 x10^3/uL (1.0-4.8) Monocytes # (Auto) 1.4 x10^3/uL (0.0-1.1) Eosinophils # (Auto) 0.2 x10^3/uL (0.0-0.7) Basophils # (Auto) 0.0 x10^3/uL (0.0-0.2) Medications Current Medications Acetaminophen (Tylenol Supp) 650 mg PRN Q4HRS PRN SC TEMP OVER 100.4F OR MILD PAIN; Start 10/15/19 at 21:00 Albuterol Sulfate (Ventolin Neb Soln) 2.5 mg PRN Q4HRS PRN NEB SHORTNESS OF BREATH Last administered on 10/16/19at 07:40; Start 10/15/19 at 21:00; Stop 10/16/19 at 07:53; Status DC Sodium Chloride 1,000 ml @ 75 mls/hr [id number] IV Last administered on 10/19/19at 21:41; Start 10/15/19 at 22:00 Famotidine (Pepcid Vial) 20 mg QHS IVP Last administered on 10/19/19at 21:37; Start 10/15/19 at 21:00 Fentanyl Citrate (Fentanyl 2ml Vial) 50 mcg PRN Q2HR PRN IVP SEVERE PAIN 7-10 Last administered on 10/19/19at 23:44; Start 10/15/19 at 21:00 Ondansetron HCl (Zofran) 4 mg PRN Q6HRS PRN IVP NAUSEA/VOMITING 1ST CHOICE; Start 10/15/19 at 21:00 Labetalol HCl (Normodyne Iv Push) 10 mg PRN Q2HR PRN IVP HYPERTENSION Last administered on 10/17/19 04:27; Start 10/15/19 at 21:00 Ceftriaxone Sodium (Rocephin) 1 gm Q24H IVP Last administered on 10/17/19at 22:10; Start 10/15/19 at 22:00; Stop 10/18/19 at 11:21; Status DC Azithromycin 250 mg/Sodium Chloride 250 ml @ 250 mls/hr Q24H IV Last administered on 10/17/19at 22:11; Start 10/15/19 at 22:00; Stop 10/18/19 at 11:21; Status DC Benzocaine (Hurricaine One) 1 spray PRN QID PRN MM PAIN Last administered on 10/15/19at 22:06; Start 10/15/19 at 21:30; Stop 10/16/19 at 07:46; Status DC Influenza Virus Vaccine Quadrival (Afluria Quad 2019-20 (3yr Up) Syringe) 0.5 ml ONCE ONCE VAX IM ; Start 10/16/19 at 09:00; Stop 10/16/19 at 09:01; Status DC Phenol (Chloraseptic) 1 spray PRN Q2HR PRN PO SORE THROAT; Start 10/16/19 at 07:45; Status Cancel Phenol (Chloraseptic) 1 spray PRN Q2HR PRN PO SORE THROAT; Start 10/16/19 at 08:00 Albuterol Sulfate (Ventolin Neb Soln) 2.5 mg Q4H NEB Last administered on 10/20/19at 07:27; Start 10/16/19 at 12:00 Labetalol HCl (Normodyne Iv Push) 10 mg PRN Q2HR PRN IVP HYPERTENSION; Start 10/16/19 at 09:15; Stop 10/16/19 at 10:40; Status DC Iohexol (Omnipaque 300 Mg/ml) 400 ml 1X ONCE SC Last administered on 10/16/19at 10:45; Start 10/16/19 at 10:45; Stop 10/16/19 at 10:46; Status DC Info (CONTRAST GIVEN -- Rx MONITORING) 1 each PRN DAILY PRN MC SEE COMMENTS; Start 10/16/19 at 10:45; Stop 10/18/19 at 10:44; Status DC Magnesium Citrate (Citroma) 296 ml 1X ONCE NG Last administered on 10/16/19at 19:08; Start 10/16/19 at 18:45; Stop 10/16/19 at 18:46; Status DC Bisacodyl (Dulcolax Tab) 10 mg 1X ONCE PO ; Start 10/17/19 at 10:30; Stop 10/17/19 at 07:26; Status DC Methylnaltrexone [place] (Relistor) 12 mg 1X ONCE SQ Last administered on 10/17/19at 10:01; Start 10/17/19 at 07:30; Stop 10/17/19 at 07:31; Status DC Polyethylene Glycol (miraLAX PACKET) 17 gm DAILY PO Last administered on 10/17/19at 07:57; Start 10/17/19 at 09:00 Simethicone (Gas-X) 80 mg PRN AFTMEALHC PRN PO GAS / BLOATING Last administered on 10/17/19at 10:00; Start 10/17/19 at 09:30 Bisacodyl (Dulcolax Tab) 10 mg 1X PRN PO CONSTIPATION Last administered on 10/17/19at 10:00; Start 10/17/19 at 09:45; Stop 10/19/19 at 14:29; Status DC Magnesium Citrate (Citroma) 296 ml 1X ONCE PO Last administered on 10/17/19at 18:19; Start 10/17/19 at 18:00; Stop 10/17/19 at 18:01; Status DC Piperacillin Sod/ Tazobactam Sod (Zosyn Per Pharmacy) 1 each PRN DAILY PRN MC SEE COMMENTS; Start 10/18/19 at 11:30; Stop 10/18/19 at 11:25; Status DC Meropenem 1 gm/ Sodium Chloride 100 ml @ 200 mls/hr Q8HRS IV Last administered on 10/20/19at 05:35; Start 10/18/19 at 14:00 Ringer's Solution 1,000 ml @ 75 mls/hr 1X ONCE IV Last administered on 10/18/19at 13:32; Start 10/18/19 at 13:30; Stop 10/19/19 at 02:49; Status DC Albuterol/ Ipratropium (Duoneb) 3 ml 1X ONCE NEB Last administered on 10/18/19at 13:45; Start 10/18/19 at 13:45; Stop 10/18/19 at 13:55; Status DC Propofol 40 ml @ As Directed STK-MED ONCE IV ; Start 10/18/19 at 13:57; Stop 10/18/19 at 13:57; Status DC Lactobacillus Rhamnosus (Culturelle) 1 cap BID PO Last administered on 10/19/19at 21:38; Start 10/19/19 at 21:00 Vitals/I & O Vital Sign - Last 24 Hours 10/19/19 10/19/19 10/19/19 10/19/19 11:00 13:31 14:01 14:08 Temp 98.1 98.1 Pulse 92 Resp 18 B/P (MAP) 144/87 (106) Pulse Ox 92 92 94 O2 Delivery Room Air Nasal Cannula Room Air Room Air O2 Flow Rate 1.0 10/19/19 10/19/19 10/19/19 10/19/19 15:00 16:16 19:00 19:54 Temp 98.4 98.3 98.4 98.3 Pulse 100 98 Resp 16 18 B/P (MAP) 146/89 (108) 157/93 (114) Pulse Ox 91 90 92 O2 Delivery Room Air Room Air Room Air Room Air 10/19/19 10/19/19 10/20/19 10/20/19 20:00 23:00 00:41 03:00 Temp 98.4 98.5 98.4 98.5 Pulse 96 91 Resp 18 18 B/P (MAP) 154/88 (110) 159/89 (112) Pulse Ox 91 93 O2 Delivery Nasal Cannula Room Air Room Air Room Air 10/20/19 10/20/19 07:00 07:28 Temp 99.2 99.2 Pulse 100 Resp 16 B/P (MAP) 157/88 (111) Pulse Ox 91 96 O2 Delivery Room Air Room Air Intake and Output 10/19/19 10/19/19 10/20/19 14:59 22:59 06:59 Intake Total 1000 ml Balance 1000 ml Hemodynamically unstable?: No Is patient in severe pain?: Yes Is NPO status required?: Yes JOSÉ ANTONIO HERBERT MD Oct 20, 2019 09:56
[2019-10-20 11:00] VITALS: BP 152/94
--- NOTE | 2019-10-20 12:18 | PDOC ---
Infectious Disease Note Subjective Subjective walking the halls Tolerating full liquids + BM Still quite distended, but no worse No c/o F/C/N/V ROS ROS per HPI Vital Sign Vital Signs Vital Signs Date Time Temp Pulse Resp B/P (MAP) Pulse Ox O2 Delivery O2 Flow Rate FiO2 10/20/19 11:37 Room Air 10/20/19 11:00 98.7 88 16 152/94 (113) 92 98.7 10/19/19 13:31 1.0 Physical Exam PHYSICAL EXAM GENERAL: The patient is propped up in bed, alert, and in no apparent distress. HEENT: Pupils are equally round. Small subconjunctival hemorrhage on the right. Oropharynx pink and moist, no lesions. NECK: Supple. LUNGS: Clear. HEART: S1, S2. ABDOMEN: Very distended, somewhat firm, and nontender. bowel sounds present EXTREMITIES: 1+ edema BLE, SKIN: Warm to touch. No signs of rash. NEUROLOGIC: Alert and oriented x 3. PIV Labs Lab KUB, 10/20. 1. There is again prominent gas dilatation of segments of large and small bowel which may be due to ileus unless suspicion for distal colonic obstruction. Objective Assessment H. influenzae bacteremia from 10/16 at [facility] Colonic ileus s/p decompressive colonoscopy, ? ischemia s/p biopsy, 10/18. No surgical plans Leukocytosis - improved Plan Plan of Care Currently on meropenem - de-escalate soon Previously on Rocephin and azithromycin Probiotics D/w at bedside D/w nursing D/w Dr. Robledo Attending Co-Sign The patient was seen and interviewed as well as examined at the bedside. The chart was reviewed. The case was discussed. Agree with the plan of care. d/w cxr DELMA CANTU APRN Oct 20, 2019 12:18 KALE HALL MD Oct 20, 2019 14:04
[2019-10-20] MEDS: LACTOBACILLUS RHAMNOSUS GG 1 CAPSULE. PO SCH ×2 (12:38→20:43)
[2019-10-20 15:00] VITALS: BP 157/82
--- NOTE | 2019-10-20 16:07 | PDOC ---
GI PROGRESS NOTES Date Date/Time DATE: 10/20/19 TIME: 16:05 Subjective Subjective Passing gas and some stringy fluid with bowel movement but no formed stools. No abdominal pain or nausea but still distended abdomen Objective Vitals Vital Signs Date Time Temp Pulse Resp B/P (MAP) Pulse Ox O2 Delivery O2 Flow Rate FiO2 10/20/19 15:42 Room Air 10/20/19 15:00 98.2 98 16 157/82 (107) 92 Room Air 98.2 10/20/19 11:37 Room Air 10/20/19 11:00 98.7 88 16 152/94 (113) 92 Room Air 98.7 10/20/19 08:00 Room Air 10/20/19 07:28 96 Room Air 10/20/19 07:00 99.2 100 16 157/88 (111) 91 Room Air 99.2 10/20/19 03:00 98.5 91 18 159/89 (112) 93 Room Air 98.5 10/20/19 00:41 Room Air 10/19/19 23:00 98.4 96 18 154/88 (110) 91 Room Air 98.4 10/19/19 20:00 Nasal Cannula 10/19/19 19:54 92 Room Air 10/19/19 19:00 98.3 98 18 157/93 (114) 90 Room Air 98.3 10/19/19 16:16 Room Air Physical Exam Physical Exam Chest clear Abdomen soft, less distended than Monday but no change from yesterday, no point tenderness (:*particularly no tenderness in RLQ) or rebound. Bowel sounds are decreased but present. Improved from yesterday Assessment Assessment Colonic ileus. Acute onset several days ago without obvious cause. Colonoscopy reveals dilated cecum with ulceration suggestive of ischemic colitis. Whether this is from the distention or was the cause is unclear. Clinically, however he is improving Plan Plan Slowly advance diet to full liquids but not further Continue ambulating in the halls Monitor labs As long as he continues to pass gas or fluid we will await reduction in distention before suggesting discharge. Hemodynamically unstable?: No Is patient in severe pain?: Yes Is NPO status required?: Yes MAU REYNOSO MD Oct 20, 2019 16:07
[2019-10-20 19:00] VITALS: BP 160/92
[2019-10-20] MEDS: FAMOTIDINE 20 MG/2 ML VIAL IVP SCH (20:43)
[2019-10-20 23:00] VITALS: BP 163/98
[2019-10-21] MEDS: ALBUTEROL SULFATE 2.5 MG/3 ML NEBU. NEB SCH ×7 (00:21→23:13)
[2019-10-21] MEDS: fentaNYL PF VIAL 100 MCG/2 ML VIAL IVP PRN ×2 (00:35→23:24)
[2019-10-21 03:00] VITALS: BP 167/99
--- NOTE | 2019-10-21 03:18 | RAD ---
CT chest, abdomen and pelvis without contrast PQRS statement: CT scans at this facility use dose reduction including either automated exposure control, iterative reconstructions, and /or weight based radiation dosing via mA and kV modification when appropriate to reduce radiation dose to as low as reasonably achievable. HISTORY: Pneumonia. Abdominal distention. Chest findings: Elevation of the right diaphragm and passive atelectasis with moderate volume loss of the right lower lobe and complete complete collapse of the right middle lobe. There is a mild right pleural effusion thickness of 1 cm along the posterior lower lobe and diaphragm. Calcified granulomas right upper lobe and at the right hilum and mediastinum. Opacity with air bronchograms of the collapsed basilar posterior right lower lobe. Mild discoid atelectasis at the left lower lobe and lingula. Coronary calcified plaque. Heart size normal. Pulmonary vessels and esophagus and aorta are unremarkable. Bones unremarkable. Abdomen findings: Lumbar disc disease and arthritic change. Calcified density hepatic flexure with chronic deformity of the anterior right hepatic lobe beneath the right diaphragm and anatomic variant. Gallbladder, pancreas, adrenal glands and spleen are unremarkable. Very mild perinephric edema. Exophytic right renal lower pole 1 cm cyst density 10 units. Sigmoid colonic diverticulosis. There is gaseous distention with air-fluid levels throughout most of the large bowel excluding the rectosigmoid which is relatively collapsed and there is mild edema surrounding the sigmoid colon which demonstrates a 6 cm segment of focal wall thickening axial image 85. There is also mild distention of the small bowel with air-fluid levels without a discrete transition point. Cecum is at the mid abdomen and anatomic variant. Retrocecal appendix with mild density perhaps due to appendicoliths no dilation or inflammation evident. No abdominal fluid. 2 cm fatty umbilical abdominal wall hernia. Mild anterior abdominal wall edema. At the infraumbilical abdominal wall there is a 2 cm subcutaneous cyst density 7 units. Pelvis findings: Mild dependent pelvic fluid. Rectosigmoid is relatively collapsed. There appears be transition from the somewhat distended descending colon leading up to the proximal sigmoid colon 6 cm segment of exuberant wall thickening and surrounding edema with diverticulosis. Bladder, prostate and bones are unremarkable. Small bilateral fatty inguinal hernias the right contains a small focus of fluid. There is soft tissue edema of the pelvis. IMPRESSION: 1. Prominent distention of the small bowel and most of the large bowel with air-fluid levels. There is a transition point at the proximal sigmoid colon with somewhat abrupt collapse and wall thickening and surrounding edema associated with diverticulosis which may indicate acute diverticulitis. The distention throughout the small bowel and most of the large bowel with focal transition point at the sigmoid colon could also indicate large bowel obstruction either due to a diverticular stricture or due to a malignant mass. Ileus would be a secondary consideration. 2. The appendix is negative. 3. Mild soft tissue edema of the abdomen and pelvis. Mild pelvic free fluid. 4. Elevation of the right diaphragm. Moderate collapse of the right lower lobe and complete collapse of the right middle lobe, with opacities of atelectasis or pneumonia. No obvious bronchial cut off evident. Electronically signed by: Tavon Mccarthy MD (10/21/2019 3:15 AM) [id number]
[2019-10-21 05:40] LABS: BASO % 1 % (0-3); EOS # 0.2 x10^3/uL (0.0-0.7); EOS % 2 % (0-3); HEMATOCRIT 36.6 % (39.0-53.0); HEMOGLOBIN 11.9 g/dL (13.0-17.5); LYMPH % 12 % (24-48); MEAN CORPUSCULAR HEMOGLOBIN 28 pg (25-35); MEAN CORPUSCULAR HGB CONC 33 g/dL (31-37); MEAN CORPUSCULAR VOLUME 86 fL (79-100); MONO # 1.2 x10^3/uL (0.0-1.1); MONO % 13 % (0-9); NEUT # 6.5 x10^3/uL (1.8-7.7); NEUT % 73 % (31-73); PLATELET COUNT 387 x10^3/uL (140-400); RED BLOOD COUNT 4.26 x10^6/uL (4.30-5.70); RED CELL DISTRIBUTION WIDTH 13.7 % (11.5-14.5); WHITE BLOOD COUNT 8.9 x10^3/uL (4.0-11.0)
[2019-10-21 07:00] VITALS: BP 149/93
[2019-10-21] MEDS: LACTOBACILLUS RHAMNOSUS GG 1 CAPSULE. PO SCH ×2 (08:24→20:43)
[2019-10-21] MEDS: POLYETHYLENE GLYCOL 3350 17 GM PACKET. PO SCH (09:00)
--- NOTE | 2019-10-21 09:04 | PDOC ---
PROGRESS NOTES Chief Complaint Chief Complaint A/P: SEVERE ILEUS, SLOW TO RESOLVE< Colonoscopy reveals dilated cecum with ulceration suggestive of ischemic colitis - neg barium enema study RECENT CONSTIPATION HX GOUT NO signif abd hx, no signif past medical hx ct abd prior to admit [facility] suggested RLL Consolidation plan ct chest, abd, pelvis psa esr consult pulm medicine STOOL OVA/PARASITES SPE/IPE NOTES TRAVEL TO [facility] IN AUG 2019, VACATION X 5-6 DAYS, No symptoms until Sep History of Present Illness History of Present Illness Mr Ennis is a 69y M w/ PMHx gout initially seen at [facility] with a 4-day history of constipation, abdominal distention, and bloating. A CT abdomen/pelvis with contrast demonstrated diffuse gaseous dilatation of the colon consistent with ileus/pseudoobstruction. NG tube was placed, and he was transferred to [facility] for further evaluation and treatment. He underwent a decompressive colonoscopy 10/18/2019 with segmental colitis/ulcers suggestive of ischemia notedand biopsy taken. [facility] was notified of blood cultures positive for gram-negative rods, now identified with Haemophilus influenzae (sensitive to ceftriaxone, ciprofloxacin, and meropenem) colonic ileus with decompressive colonoscopy, findings concerning for ischemic colitis in cecum. Still bloated today, had 2 bowel movement overnight. He and his spouse are concerned about lack of progress and frustrated with no formal diagnosis. D/w GI not appropriate or safe for discharge. PLAN: NOsurgical plans stool culture, ova/ parasites ct abdomen /pelvis/ chest 10/20 ESR SPE/IPE Procalcitonin Vitals Vitals Vital Signs Date Time Temp Pulse Resp B/P (MAP) Pulse Ox O2 Delivery O2 Flow Rate FiO2 10/21/19 07:22 97 Nasal Cannula 1.0 10/21/19 07:00 98.7 94 18 149/93 (111) 98.7 Physical Exam Physical Exam GENERAL: The patient is propped up in bed, alert, and in no apparent distress. HEENT: Pupils are equally round. Small subconjunctival hemorrhage on the right. Oropharynx pink and moist, no lesions. NECK: Supple. LUNGS: Clear. HEART: S1, S2. ABDOMEN: Very distended, somewhat firm, and nontender. bowel sounds present EXTREMITIES: 1+ edema BLE, SKIN: Warm to touch. No signs of rash. NEUROLOGIC: Alert and oriented x 3. PIV General: Alert, Oriented X3, Cooperative, No acute distress Heart: Regular rate, Normal S1, Normal S2 Lungs: Clear Abdomen: Normal bowel sounds, No tenderness, Other (distended, soft, tense) Extremities: No clubbing, No cyanosis Skin: No rashes Labs LABS Laboratory Tests Test 10/20/19 18:55 10/21/19 03:30 Erythrocyte Sedimentation Rate 53 (0-15) White Blood Count 8.9 x10^3/uL (4.0-11.0) Red Blood Count 4.26 x10^6/uL (4.30-5.70) Hemoglobin 11.9 g/dL (13.0-17.5) Hematocrit 36.6 % (39.0-53.0) Mean Corpuscular Volume 86 fL (79-100) Mean Corpuscular Hemoglobin 28 pg (25-35) Mean Corpuscular Hemoglobin Concent 33 g/dL (31-37) Red Cell Distribution Width 13.7 % (11.5-14.5) Platelet Count 387 x10^3/uL (140-400) Neutrophils (%) (Auto) 73 % (31-73) Lymphocytes (%) (Auto) 12 % (24-48) Monocytes (%) (Auto) 13 % (0-9) Eosinophils (%) (Auto) 2 % (0-3) Basophils (%) (Auto) 1 % (0-3) Neutrophils # (Auto) 6.5 x10^3/uL (1.8-7.7) Lymphocytes # (Auto) 1.0 x10^3/uL (1.0-4.8) Monocytes # (Auto) 1.2 x10^3/uL (0.0-1.1) Eosinophils # (Auto) 0.2 x10^3/uL (0.0-0.7) Basophils # (Auto) 0.0 x10^3/uL (0.0-0.2) Comment Review of Relevant I have reviewed the following items priscilla (where applicable) has been applied. Labs Laboratory Tests Test 10/20/19 18:55 10/21/19 03:30 Erythrocyte Sedimentation Rate 53 (0-15) White Blood Count 8.9 x10^3/uL (4.0-11.0) Red Blood Count 4.26 x10^6/uL (4.30-5.70) Hemoglobin 11.9 g/dL (13.0-17.5) Hematocrit 36.6 % (39.0-53.0) Mean Corpuscular Volume 86 fL (79-100) Mean Corpuscular Hemoglobin 28 pg (25-35) Mean Corpuscular Hemoglobin Concent 33 g/dL (31-37) Red Cell Distribution Width 13.7 % (11.5-14.5) Platelet Count 387 x10^3/uL (140-400) Neutrophils (%) (Auto) 73 % (31-73) Lymphocytes (%) (Auto) 12 % (24-48) Monocytes (%) (Auto) 13 % (0-9) Eosinophils (%) (Auto) 2 % (0-3) Basophils (%) (Auto) 1 % (0-3) Neutrophils # (Auto) 6.5 x10^3/uL (1.8-7.7) Lymphocytes # (Auto) 1.0 x10^3/uL (1.0-4.8) Monocytes # (Auto) 1.2 x10^3/uL (0.0-1.1) Eosinophils # (Auto) 0.2 x10^3/uL (0.0-0.7) Basophils # (Auto) 0.0 x10^3/uL (0.0-0.2) Laboratory Tests Test 10/20/19 18:55 10/21/19 03:30 Erythrocyte Sedimentation Rate 53 (0-15) White Blood Count 8.9 x10^3/uL (4.0-11.0) Red Blood Count 4.26 x10^6/uL (4.30-5.70) Hemoglobin 11.9 g/dL (13.0-17.5) Hematocrit 36.6 % (39.0-53.0) Mean Corpuscular Volume 86 fL (79-100) Mean Corpuscular Hemoglobin 28 pg (25-35) Mean Corpuscular Hemoglobin Concent 33 g/dL (31-37) Red Cell Distribution Width 13.7 % (11.5-14.5) Platelet Count 387 x10^3/uL (140-400) Neutrophils (%) (Auto) 73 % (31-73) Lymphocytes (%) (Auto) 12 % (24-48) Monocytes (%) (Auto) 13 % (0-9) Eosinophils (%) (Auto) 2 % (0-3) Basophils (%) (Auto) 1 % (0-3) Neutrophils # (Auto) 6.5 x10^3/uL (1.8-7.7) Lymphocytes # (Auto) 1.0 x10^3/uL (1.0-4.8) Monocytes # (Auto) 1.2 x10^3/uL (0.0-1.1) Eosinophils # (Auto) 0.2 x10^3/uL (0.0-0.7) Basophils # (Auto) 0.0 x10^3/uL (0.0-0.2) Medications Current Medications Acetaminophen (Tylenol Supp) 650 mg PRN Q4HRS PRN FL TEMP OVER 100.4F OR MILD PAIN; Start 10/15/19 at 21:00 Albuterol Sulfate (Ventolin Neb Soln) 2.5 mg PRN Q4HRS PRN NEB SHORTNESS OF B REATH Last administered on 10/16/19at 07:40; Start 10/15/19 at 21:00; Stop 10/16/19 at 07:53; Status DC Sodium Chloride 1,000 ml @ 75 mls/hr [id number] IV Last administered on 10/19/19 21:41; Start 10/15/19 at 22:00; Stop 10/20/19 at 12:16; Status DC Famotidine (Pepcid Vial) 20 mg QHS IVP Last administered on 10/20/19at 20:43; Start 10/15/19 at 21:00 Fentanyl Citrate (Fentanyl 2ml Vial) 50 mcg PRN Q2HR PRN IVP SEVERE PAIN 7-10 Last administered on 10/21/19 00:35; Start 10/15/19 at 21:00 Ondansetron HCl (Zofran) 4 mg PRN Q6HRS PRN IVP NAUSEA/VOMITING 1ST CHOICE; Start 10/15/19 at 21:00 Labetalol HCl (Normodyne Iv Push) 10 mg PRN Q2HR PRN IVP HYPERTENSION Last administered on 10/17/19 04:27; Start 10/15/19 at 21:00 Ceftriaxone Sodium (Rocephin) 1 gm Q24H IVP Last administered on 10/17/19at 22:10; Start 10/15/19 at 22:00; Stop 10/18/19 at 11:21; Status DC Azithromycin 250 mg/Sodium Chloride 250 ml @ 250 mls/hr Q24H IV Last administered on 10/17/19at 22:11; Start 10/15/19 at 22:00; Stop 10/18/19 at 11:21; Status DC Benzocaine (Hurricaine One) 1 spray PRN QID PRN MM PAIN Last administered on 10/15/19at 22:06; Start 10/15/19 at 21:30; Stop 10/16/19 at 07:46; Status DC Influenza Virus Vaccine Quadrival (Afluria Quad 2019-20 (3yr Up) Syringe) 0.5 ml ONCE ONCE VAX IM ; Start 10/16/19 at 09:00; Stop 10/16/19 at 09:01; Status DC Phenol (Chloraseptic) 1 spray PRN Q2HR PRN PO SORE THROAT; Start 10/16/19 at 07:45; Status Cancel Phenol (Chloraseptic) 1 spray PRN Q2HR PRN PO SORE THROAT; Start 10/16/19 at 08:00 Albuterol Sulfate (Ventolin Neb Soln) 2.5 mg Q4H NEB Last administered on 10/21/19at 07:22; Start 10/16/19 at 12:00 Labetalol HCl (Normodyne Iv Push) 10 mg PRN Q2HR PRN IVP HYPERTENSION; Start 10/16/19 at 09:15; Stop 10/16/19 at 10:40; Status DC Iohexol (Omnipaque 300 Mg/ml) 400 ml 1X ONCE FL Last administered on 10/16/19at 10:45; Start 10/16/19 at 10:45; Stop 10/16/19 at 10:46; Status DC Info (CONTRAST GIVEN -- Rx MONITORING) 1 each PRN DAILY PRN MC SEE COMMENTS; Start 10/16/19 at 10:45; Stop 10/18/19 at 10:44; Status DC Magnesium Citrate (Citroma) 296 ml 1X ONCE NG Last administered on 10/16/19at 19:08; Start 10/16/19 at 18:45; Stop 10/16/19 at 18:46; Status DC Bisacodyl (Dulcolax Tab) 10 mg 1X ONCE PO ; Start 10/17/19 at 10:30; Stop 10/17/19 at 07:26; Status DC Methylnaltrexone [place] (Relistor) 12 mg 1X ONCE SQ Last administered on 10/17/19at 10:01; Start 10/17/19 at 07:30; Stop 10/17/19 at 07:31; Status DC Polyethylene Glycol (miraLAX PACKET) 17 gm DAILY PO Last administered on 10/17/19at 07:57; Start 10/17/19 at 09:00 Simethicone (Gas-X) 80 mg PRN AFTMEALHC PRN PO GAS / BLOATING Last administered on 10/17/19at 10:00; Start 10/17/19 at 09:30 Bisacodyl (Dulcolax Tab) 10 mg 1X PRN PO CONSTIPATION Last administered on 10/17/19at 10:00; Start 10/17/19 at 09:45; Stop 10/19/19 at 14:29; Status DC Magnesium Citrate (Citroma) 296 ml 1X ONCE PO Last administered on 10/17/19at 18:19; Start 10/17/19 at 18:00; Stop 10/17/19 at 18:01; Status DC Piperacillin Sod/ Tazobactam Sod (Zosyn Per Pharmacy) 1 each PRN DAILY PRN MC SEE COMMENTS; Start 10/18/19 at 11:30; Stop 10/18/19 at 11:25; Status DC Meropenem 1 gm/ Sodium Chloride 100 ml @ 200 mls/hr Q8HRS IV Last administered on 10/20/19at 05:35; Start 10/18/19 at 14:00; Stop 10/20/19 at 14:06; Status DC Ringer's Solution 1,000 ml @ 75 mls/hr 1X ONCE IV Last administered on 10/18/19at 13:32; Start 10/18/19 at 13:30; Stop 10/19/19 at 02:49; Status DC Albuterol/ Ipratropium (Duoneb) 3 ml 1X ONCE NEB Last administered on 10/18/19at 13:45; Start 10/18/19 at 13:45; Stop 10/18/19 at 13:55; Status DC Propofol 40 ml @ As Directed STK-MED ONCE IV ; Start 10/18/19 at 13:57; Stop 10/18/19 at 13:57; Status DC Lactobacillus Rhamnosus (Culturelle) 1 cap BID PO Last administered on 10/21/19at 08:24; Start 10/19/19 at 21:00 Levofloxacin (Levaquin) 500 mg DAILY06 PO Last administered on 10/21/19at 05:57; Start 10/21/19 at 06:00 Vitals/I & O Vital Sign - Last 24 Hours 10/20/19 10/20/19 10/20/19 10/20/19 11:00 11:37 15:00 15:42 Temp 98.7 98.2 98.7 98.2 Pulse 88 98 Resp 16 16 B/P (MAP) 152/94 (113) 157/82 (107) Pulse Ox 92 92 O2 Delivery Room Air Room Air Room Air Room Air 10/20/19 10/20/19 10/20/19 10/20/19 19:00 20:00 20:19 23:00 Temp 98.2 98.7 98.2 98.7 Pulse 93 74 Resp 16 18 B/P (MAP) 160/92 (114) 163/98 (119) Pulse Ox 92 96 94 O2 Delivery Room Air Nasal Cannula Nasal Cannula Room Air O2 Flow Rate 1.0 1.0 10/21/19 10/21/19 10/21/19 10/21/19 00:21 00:35 01:10 03:00 Temp 98.4 98.4 Pulse 93 Resp 16 16 18 B/P (MAP) 167/99 (121) Pulse Ox 93 93 O2 Delivery Nasal Cannula Nasal Cannula Nasal Cannula Room Air O2 Flow Rate 1.0 1.0 1.0 10/21/19 10/21/19 07:00 07:22 Temp 98.7 98.7 Pulse 94 Resp 18 B/P (MAP) 149/93 (111) Pulse Ox 95 97 O2 Delivery Nasal Cannula Nasal Cannula O2 Flow Rate 1.0 1.0 Images 1. Prominent distention of the small bowel and most of the large bowel with air-fluid levels. There is a transition point at the proximal sigmoid colon with somewhat abrupt collapse and wall thickening and surrounding edema associated with diverticulosis which may indicate acute diverticulitis. The distention throughout the small bowel and most of the large bowel with focal transition point at the sigmoid colon could also indicate large bowel obstruction either due to a diverticular stricture or due to a malignant mass. Ileus would be a secondary consideration. 2. The appendix is negative. 3. Mild soft tissue edema of the abdomen and pelvis. Mild pelvic free fluid. 4. Elevation of the right diaphragm. Moderate collapse of the right lower lobe and complete collapse of the right middle lobe, with opacities of atelectasis or pneumonia. No obvious bronchial cut off evident. Hemodynamically unstable?: No Is patient in severe pain?: Yes Is NPO status required?: Yes KEIKO ACOSTA MD Oct 21, 2019 09:04
--- NOTE | 2019-10-21 10:00 | PDOC ---
Subjective: Subjective: Still distended but feels better. Has been walking, tolerating full liquids, and had a couple more significant stools last night - liquid but "with substance." concerned he is not drinking enough water - he says he is urinating normally. They say fluids were stopped due to swelling/bloating. He says he will do whatever the doctors recommend. They want to know CT results ordered by hospitalist yesterday. Objective: Objective: Cr was WNL 10/19. D/w nurse - received in report large amount of stool last night. Vital Signs: Vital Signs Date Time Temp Pulse Resp B/P (MAP) Pulse Ox O2 Delivery O2 Flow Rate FiO2 10/21/19 07:22 97 Nasal Cannula 1.0 10/21/19 07:00 98.7 94 18 149/93 (111) 98.7 Labs: Laboratory Tests Test 10/20/19 18:55 10/21/19 03:30 Erythrocyte Sedimentation Rate 53 White Blood Count 8.9 x10^3/uL Red Blood Count 4.26 x10^6/uL Hemoglobin 11.9 g/dL Hematocrit 36.6 % Mean Corpuscular Volume 86 fL Mean Corpuscular Hemoglobin 28 pg Mean Corpuscular Hemoglobin Concent 33 g/dL Red Cell Distribution Width 13.7 % Platelet Count 387 x10^3/uL Neutrophils (%) (Auto) 73 % Lymphocytes (%) (Auto) 12 % Monocytes (%) (Auto) 13 % Eosinophils (%) (Auto) 2 % Basophils (%) (Auto) 1 % Neutrophils # (Auto) 6.5 x10^3/uL Lymphocytes # (Auto) 1.0 x10^3/uL Monocytes # (Auto) 1.2 x10^3/uL Eosinophils # (Auto) 0.2 x10^3/uL Basophils # (Auto) 0.0 x10^3/uL Imaging: Colonoscopy 10/18 pseudoobstruction/ileus Findings- liquid and air throughout colon- distension noted in ascending and cecum- with segmental colitis/ulcers- suggestive of ischemia (bx)- 1.4 liters of fluid and lots of air/gas removed with vigorous suction and after procedure noticeable improvement in distension C/A/P CT 10/20 IMPRESSION: 1. Prominent distention of the small bowel and most of the large bowel with air- fluid levels. There is a transition point at the proximal sigmoidcolon with somewhat abrupt collapse and wall thickening and surrounding edema associated with diverticulosis which may indicate acute diverticulitis. The distention throughout the small bowel and most of the large bowel with focal transition point at the sigmoid colon could also indicate large bowel obstruction either due to a diverticular stricture or due to a malignant mass. Ileus would be a secondary consideration. 2. The appendix is negative. 3. Mild soft tissue edema of the abdomen and pelvis. Mild pelvic free fluid. 4. Elevation of the right diaphragm. Moderate collapse of the right lower lobe and complete collapse of the right middle lobe, with opacities of atelectasis or pneumonia. No obvious bronchial cut off evident. PE: GEN: NAD - sitting on edge of bed LUNGS: NC HEART: RRR ABD: still distended/tight, bowel sounds more active NEURO/PSYCH: A & O 3 A/P: Colonic ileus H. influenzae bacteremia - per ID -- Colonoscopy done prior to CT as above. Taking some PO and stooling, still distended. Continue same for now w/ full liquids. Biopsies pending. Could repeat KUB. Will review all w/ Dr. Kulkarni and update pt/ as indicated. Hemodynamically unstable?: No Is patient in severe pain?: Yes Is NPO status required?: Yes CANDACE CRAIG Oct 21, 2019 10:00
--- NOTE | 2019-10-21 10:09 | PDOC ---
Infectious Disease Note Subjective Subjective walking the halls Tolerating full liquids + BM Still quite distended, but no worse No c/o F/C/N/V Vital Sign Vital Signs Vital Signs Date Time Temp Pulse Resp B/P (MAP) Pulse Ox O2 Delivery O2 Flow Rate FiO2 10/21/19 07:22 97 Nasal Cannula 1.0 10/21/19 07:00 98.7 94 18 149/93 (111) 98.7 Physical Exam PHYSICAL EXAM GENERAL: The patient is propped up in bed, alert, and in no apparent distress. HEENT: Pupils are equally round. Small subconjunctival hemorrhage on the right. Oropharynx pink and moist, no lesions. NECK: Supple. LUNGS: Clear. HEART: S1, S2. ABDOMEN: Very distended, somewhat firm, and nontender. bowel sounds present EXTREMITIES: 1+ edema BLE, SKIN: Warm to touch. No signs of rash. NEUROLOGIC: Alert and oriented x 3. PIV Labs Lab Laboratory Tests Test 10/20/19 18:55 10/21/19 03:30 Erythrocyte Sedimentation Rate 53 (0-15) White Blood Count 8.9 x10^3/uL (4.0-11.0) Red Blood Count 4.26 x10^6/uL (4.30-5.70) Hemoglobin 11.9 g/dL (13.0-17.5) Hematocrit 36.6 % (39.0-53.0) Mean Corpuscular Volume 86 fL (79-100) Mean Corpuscular Hemoglobin 28 pg (25-35) Mean Corpuscular Hemoglobin Concent 33 g/dL (31-37) Red Cell Distribution Width 13.7 % (11.5-14.5) Platelet Count 387 x10^3/uL (140-400) Neutrophils (%) (Auto) 73 % (31-73) Lymphocytes (%) (Auto) 12 % (24-48) Monocytes (%) (Auto) 13 % (0-9) Eosinophils (%) (Auto) 2 % (0-3) Basophils (%) (Auto) 1 % (0-3) Neutrophils # (Auto) 6.5 x10^3/uL (1.8-7.7) Lymphocytes # (Auto) 1.0 x10^3/uL (1.0-4.8) Monocytes # (Auto) 1.2 x10^3/uL (0.0-1.1) Eosinophils # (Auto) 0.2 x10^3/uL (0.0-0.7) Basophils # (Auto) 0.0 x10^3/uL (0.0-0.2) Objective Assessment H. influenzae bacteremia from 10/16 at [facility] Colonic ileus s/p decompressive colonoscopy, ? ischemia s/p biopsy, 10/18. No surgical plans Leukocytosis - improved Plan Plan of Care cont po levaquin Probiotics D/w at bedside D/w nursing d/w GI KALE HALL MD Oct 21, 2019 10:09
[2019-10-21 11:00] VITALS: BP 156/91
--- NOTE | 2019-10-21 11:47 | NUR ---
SW following. Discussed with RN full liquid diet, no PT/OT needs. SW will continue to follow.
[2019-10-21] MEDS ORDERED: METHYLNALTREXONE 12 MG/0.6 ML VIAL. SQ ONE (13:30)
[2019-10-21 15:00] VITALS: BP 141/92
--- NOTE | 2019-10-21 15:07 | PATHOLOGY ---
[facility] Accession Number: [id number] . 01 Material submitted: . cecum - CECUM COLITIS . 01 Clinical history: . Abdominal distention, abnormal GI imaging . 02 Diagnosis: Colonic mucosa, cecum biopsy: - Acute colitis. See comment. (JPM:[facility] 10/21/2019) [facility] 10/21/2019 0935 Local . 02 Comment: Sections of the cecal biopsy reveal colonic mucosa showing acute inflammation and hemorrhage within the lamina propria. The findings are suggestive of an acute infectious colitis. Focally, there are a few shrunken glands within the area of acute inflammation and hemorrhage such that I cannot exclude the possibility of an acute ischemic colitis. Correlate clinically. (JPM:[facility] 10/21/2019) . 02 Electronically signed: . Mendez Horner MD, Pathologist NPI- [id number] . 01 Gross description: . Received in formalin labeled "Nathen Ennis, cecum colitis, rule out ischemia," is a single segment of capellan soft tissue measuring 0.3 cm in maximum dimension. The specimen is entirely submitted in cassette A1. (TSD; 10/18/2019) TOB/TOB 10/18/2019 1823 Local . 02 Pathologist provided ICD-10: K52.9 . 02 CPT . 263301 Specimen Comment: A courtesy copy of this report has been sent to [phone] Specimen Comment: [id number], Specimen Comment: Report sent to ,DR FAY / DR MENDOZA Specimen Comment: A duplicate report has been generated due to demographic updates. Performed at: 01 [facility] [address] [place] [address] [address], [place], [place] [id number] MD Jude Wilkes MD Phone: [phone] Performed at: 02 [facility] [address] [place], [place] [id number] MD Mendez Horner MD Phone: [phone]
--- NOTE | 2019-10-21 18:07 | PDOC ---
PULMONARY PROGRESS NOTES Vitals Vital Signs Date Time Temp Pulse Resp B/P (MAP) Pulse Ox O2 Delivery O2 Flow Rate FiO2 10/21/19 15:00 98.7 93 18 141/92 (108) 96 Nasal Cannula 1.0 98.7 Lungs: Clear Labs Laboratory Tests Test 10/20/19 18:55 10/21/19 03:30 Erythrocyte Sedimentation Rate 53 (0-15) White Blood Count 8.9 x10^3/uL (4.0-11.0) Red Blood Count 4.26 x10^6/uL (4.30-5.70) Hemoglobin 11.9 g/dL (13.0-17.5) Hematocrit 36.6 % (39.0-53.0) Mean Corpuscular Volume 86 fL (79-100) Mean Corpuscular Hemoglobin 28 pg (25-35) Mean Corpuscular Hemoglobin Concent 33 g/dL (31-37) Red Cell Distribution Width 13.7 % (11.5-14.5) Platelet Count 387 x10^3/uL (140-400) Neutrophils (%) (Auto) 73 % (31-73) Lymphocytes (%) (Auto) 12 % (24-48) Monocytes (%) (Auto) 13 % (0-9) Eosinophils (%) (Auto) 2 % (0-3) Basophils (%) (Auto) 1 % (0-3) Neutrophils # (Auto) 6.5 x10^3/uL (1.8-7.7) Lymphocytes # (Auto) 1.0 x10^3/uL (1.0-4.8) Monocytes # (Auto) 1.2 x10^3/uL (0.0-1.1) Eosinophils # (Auto) 0.2 x10^3/uL (0.0-0.7) Basophils # (Auto) 0.0 x10^3/uL (0.0-0.2) Procalcitonin 0.10 ng/mL (0.00-0.10) Laboratory Tests Test 10/20/19 18:55 10/21/19 03:30 Erythrocyte Sedimentation Rate 53 (0-15) White Blood Count 8.9 x10^3/uL (4.0-11.0) Red Blood Count 4.26 x10^6/uL (4.30-5.70) Hemoglobin 11.9 g/dL (13.0-17.5) Hematocrit 36.6 % (39.0-53.0) Mean Corpuscular Volume 86 fL (79-100) Mean Corpuscular Hemoglobin 28 pg (25-35) Mean Corpuscular Hemoglobin Concent 33 g/dL (31-37) Red Cell Distribution Width 13.7 % (11.5-14.5) Platelet Count 387 x10^3/uL (140-400) Neutrophils (%) (Auto) 73 % (31-73) Lymphocytes (%) (Auto) 12 % (24-48) Monocytes (%) (Auto) 13 % (0-9) Eosinophils (%) (Auto) 2 % (0-3) Basophils (%) (Auto) 1 % (0-3) Neutrophils # (Auto) 6.5 x10^3/uL (1.8-7.7) Lymphocytes # (Auto) 1.0 x10^3/uL (1.0-4.8) Monocytes # (Auto) 1.2 x10^3/uL (0.0-1.1) Eosinophils # (Auto) 0.2 x10^3/uL (0.0-0.7) Basophils # (Auto) 0.0 x10^3/uL (0.0-0.2) Procalcitonin 0.10 ng/mL (0.00-0.10) Impression . FULL NOTE DICTATED ATELECTASIS CONTINUE THE SAME CHERYLE PLASCENCIA MD Oct 21, 2019 18:06
[2019-10-21 19:00] VITALS: BP 157/93
--- NOTE | 2019-10-21 20:06 | CONS ---
DATE OF CONSULTATION: 10/21/2019 ATTENDING PHYSICIAN: Maye Shepard MD REASON FOR CONSULTATION: The patient is seen in pulmonary consultation at the request of Dr. Robledo for abnormal CT chest revealing elevation of right hemidiaphragm, collapse of the right lower lobe, right middle lobe, and atelectasis. HISTORY OF PRESENT ILLNESS: The patient is a 69-year-old male, initially presented to [facility] urgent [facility] [place] approximately 4 weeks ago with constipation, abdominal distention. He had a CT abdomen and pelvis revealing colonic distention and pseudoobstruction. NG tube was placed. He was transferred to [place]. He then underwent decompressive colonoscopy with biopsy. He had a CT abdomen and pelvis and chest for followup on the revealing evidence of atelectasis of the right lower lobe, right middle lobe, and some elevation of the right hemidiaphragm. I was asked to see him in consultation. The patient does not have a history of COPD. No oxygen supplementation. No metered dose inhaler, quit tobacco 30 years ago. He has a cough, mostly nonproductive. PAST MEDICAL HISTORY: Gout. PAST SURGICAL HISTORY: As above. ALLERGIES: No known drug allergies. 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 CURRENT MEDICATIONS: List was reviewed. REVIEW OF SYSTEMS: As indicated above, otherwise, a 10-point system was reviewed and negative. PHYSICAL EXAMINATION: VITAL SIGNS: Stable. O2 saturation was greater than 92%, currently on 1 liter. HEENT: Eyes, the sclerae were nonicteric. NECK: Jugular venous distention was not elevated. No lymphadenopathy. CHEST: Full expansion. LUNGS: Diminished breath sounds in the bases, crackles. CARDIOVASCULAR: Regular rate and rhythm. S1, S2. No S3. ABDOMEN: Slightly distended, soft. EXTREMITIES: No clubbing or cyanosis. Minimal edema. NEUROLOGIC: The patient was awake, alert, following commands. A detailed neuro exam was not performed. Electrolytes were noted. LABORATORY DATA: White count was normal. Hemoglobin and hematocrit noted. IMPRESSION: 1. Right middle lobe, right lower lobe atelectasis, collapse secondary to elevation of the right hemidiaphragm. 2. Elevation of the right hemidiaphragm related to abdominal distention. 3. Recent H. influenza. 4. Colonic ileus, status post decompressive colonoscopy. 5. Leukocytosis, improved. PLAN: 1. From my standpoint of view, I recommend continue support with incentive spirometry. 2. P.r.n. nebulized treatments. 3. No need for antibiotics from a pulmonary standpoint of view. The patient has been seen by the Infectious Disease Service. I do appreciate the privilege in sharing in the patient's care. CHERYLE PLASCENCIA MD DR: SHY/whitney JOB#: [id number] / [id number]
[2019-10-21] MEDS: FAMOTIDINE 20 MG/2 ML VIAL IVP SCH (20:43)
[2019-10-21] MEDS: PATCH REMOVAL. MC SCH (21:00)
[2019-10-21 22:00] VITALS: BP 160/98
[2019-10-21] MEDS: LIDOCAINE (700MG/PATCH) PATCH. TD SCH (22:00)
[2019-10-22 03:00] VITALS: BP 155/93
[2019-10-22 03:52] LABS: BILIRUBIN,URINE NEGATIVE (NEG); CLARITY,URINE CLEAR; COLOR,URINE YELLOW; NITRITE,URINE NEGATIVE (NEG); PH,URINE 5.5; PROTEIN,URINE NEGATIVE (NEG-TRACE); UROBILINOGEN,URINE 0.2 mg/dL (0.2 mg/dL)
[2019-10-22 04:01] LABS: BACTERIA,URINE 0 /HPF (0-FEW); RBC,URINE OCC /HPF (0-2); SQUAMOUS EPITHELIAL CELL,UR FEW /LPF
[2019-10-22] MEDS: ALBUTEROL SULFATE 2.5 MG/3 ML NEBU. NEB SCH ×5 (04:18→21:48)
[2019-10-22 05:08] LABS: HEMATOCRIT 35.1 % (39.0-53.0); HEMOGLOBIN 11.6 g/dL (13.0-17.5); RED BLOOD COUNT 4.12 x10^6/uL (4.30-5.70); RED CELL DISTRIBUTION WIDTH 13.9 % (11.5-14.5); WHITE BLOOD COUNT 9.5 x10^3/uL (4.0-11.0)
[2019-10-22 05:41] LABS: CALCIUM 8.9 mg/dL (8.5-10.1); CREATININE 0.9 mg/dL (0.7-1.3); GFR 100.9; POTASSIUM 3.7 mmol/L (3.5-5.1)
[2019-10-22 07:00] VITALS: BP 146/90
--- NOTE | 2019-10-22 08:00 | PDOC ---
PROGRESS NOTES Chief Complaint Chief Complaint A/P: SEVERE ILEUS, SLOW TO RESOLVE< Colonoscopy reveals dilated cecum with ulceration suggestive of ischemic colitis - neg barium enema study RECENT CONSTIPATION HX GOUT NO signif abd hx, no signif past medical hx ct abd prior to admit [facility] ER suggested RLL Consolidation plan ct chest, abd, pelvis psa esr consult pulm medicine STOOL OVA/PARASITES SPE/IPE NOTES TRAVEL TO [facility] IN AUG 2019, VACATION X 5-6 DAYS, No symptoms until Sep History of Present Illness History of Present Illness Mr Ennis is a 69y M w/ PMHx gout initially seen at [facility] with a 4-day history of constipation, abdominal distention, and bloating. A CT abdomen/pelvis with contrast demonstrated diffuse gaseous dilatation of the colon consistent with ileus/pseudoobstruction. NG tube was placed, and he was transferred to [place] for further evaluation and treatment. He underwent a decompressive colonoscopy 10/18/2019 with segmental colitis/ulcers suggestive of ischemia notedand biopsy taken. [place] was notified of blood cultures positive for gram-negative rods, now identified with Haemophilus influenzae (sensitive to ceftriaxone, ciprofloxacin, and meropenem) colonic ileus with decompressive colonoscopy, findings concerning for ischemic colitis in cecum. 10/21: Still bloated today, had 2 bowel movement overnight. He and his spouse are concerned about lack of progress and frustrated with no formal diagnosis. D/w GI not appropriate or safe for discharge. Feeling back pain overnight. Colon biopsy results: "Sections of the cecal biopsy reveal colonic mucosa showing acute inflammation and hemorrhage within the lamina propria. The findings are suggestive of an acute infectious colitis. Focally, there are a few shrunken glands within the area of acute inflammation and hemorrhage such that I cannot exclude the possibility of an acute ischemic colitis. Overall he is feeling better, cough improved. PLAN: Awaiting stool culture, ova/ parasites ct abdomen /pelvis/ chest 10/20 ESR elevated SPE/IPE not elevated Procalcitonin negative Vitals Vitals Vital Signs Date Time Temp Pulse Resp B/P (MAP) Pulse Ox O2 Delivery O2 Flow Rate FiO2 10/22/19 03:00 98.0 89 18 155/93 (113) 95 Nasal Cannula 1.0 98.0 Physical Exam Physical Exam GENERAL: The patient is propped up in bed, alert, and in no apparent distress. HEENT: Pupils are equally round. Small subconjunctival hemorrhage on the right. Oropharynx pink and moist, no lesions. NECK: Supple. LUNGS: Clear. HEART: S1, S2. ABDOMEN: Very distended, somewhat firm, and nontender. bowel sounds present EXTREMITIES: 1+ edema BLE, SKIN: Warm to touch. No signs of rash. NEUROLOGIC: Alert and oriented x 3. PIV General: Alert, Oriented X3, Cooperative, No acute distress Heart: Regular rate, Normal S1, Normal S2 Lungs: Clear Abdomen: Normal bowel sounds, No tenderness, Other (distended, soft, tense) Extremities: No clubbing, No cyanosis Skin: No rashes Labs LABS Laboratory Tests Test 10/22/19 02:30 10/22/19 04:30 Urine Collection Type Unknown Urine Color Yellow Urine Clarity Clear Urine pH 5.5 Urine Specific [place] 1.025 Urine Protein Negative mg/dL (NEG-TRACE) Urine Glucose (UA) Negative mg/dL (NEG) Urine Ketones (Stick) Negative mg/dL (NEG) Urine Blood Negative (NEG) Urine Nitrite Negative (NEG) Urine Bilirubin Negative (NEG) Urine Urobilinogen Dipstick 0.2 mg/dL (0.2 mg/dL) Urine Leukocyte Esterase Negative (NEG) Urine RBC Occ /HPF (0-2) Urine WBC 1-4 /HPF (0-4) Urine Squamous Epithelial Cells Few /LPF Urine Bacteria 0 /HPF (0-FEW) Urine Mucus Marked /LPF White Blood Count 9.5 x10^3/uL (4.0-11.0) Red Blood Count 4.12 x10^6/uL (4.30-5.70) Hemoglobin 11.6 g/dL (13.0-17.5) Hematocrit 35.1 % (39.0-53.0) Mean Corpuscular Volume 85 fL (79-100) Mean Corpuscular Hemoglobin 28 pg (25-35) Mean Corpuscular Hemoglobin Concent 33 g/dL (31-37) Red Cell Distribution Width 13.9 % (11.5-14.5) Platelet Count 355 x10^3/uL (140-400) Sodium Level 142 mmol/L (136-145) Potassium Level 3.7 mmol/L (3.5-5.1) Chloride Level 106 mmol/L (98-107) Carbon Dioxide Level 29 mmol/L (21-32) Anion Gap 7 (6-14) Blood Urea Nitrogen 14 mg/dL (8-26) Creatinine 0.9 mg/dL (0.7-1.3) Estimated GFR (Cockcroft-Gault) 100.9 Glucose Level 119 mg/dL (70-99) Calcium Level 8.9 mg/dL (8.5-10.1) Comment Review of Relevant I have reviewed the following items priscilla (where applicable) has been applied. Labs Laboratory Tests Test 10/20/19 18:55 10/21/19 03:30 10/22/19 02:30 10/22/19 04:30 Erythrocyte Sedimentation Rate 53 (0-15) White Blood Count 8.9 x10^3/uL (4.0-11.0) 9.5 x10^3/uL (4.0-11.0) Red Blood Count 4.26 x10^6/uL (4.30-5.70) 4.12 x10^6/uL (4.30-5.70) Hemoglobin 11.9 g/dL (13.0-17.5) 11.6 g/dL (13.0-17.5) Hematocrit 36.6 % (39.0-53.0) 35.1 % (39.0-53.0) Mean Corpuscular Volume 86 fL (79-100) 85 fL (79-100) Mean Corpuscular Hemoglobin 28 pg (25-35) 28 pg (25-35) Mean Corpuscular Hemoglobin Concent 33 g/dL (31-37) 33 g/dL (31-37) Red Cell Distribution Width 13.7 % (11.5-14.5) 13.9 % (11.5-14.5) Platelet Count 387 x10^3/uL (140-400) 355 x10^3/uL (140-400) Neutrophils (%) (Auto) 73 % (31-73) Lymphocytes (%) (Auto) 12 % (24-48) Monocytes (%) (Auto) 13 % (0-9) Eosinophils (%) (Auto) 2 % (0-3) Basophils (%) (Auto) 1 % (0-3) Neutrophils # (Auto) 6.5 x10^3/uL (1.8-7.7) Lymphocytes # (Auto) 1.0 x10^3/uL (1.0-4.8) Monocytes # (Auto) 1.2 x10^3/uL (0.0-1.1) Eosinophils # (Auto) 0.2 x10^3/uL (0.0-0.7) Basophils # (Auto) 0.0 x10^3/uL (0.0-0.2) Procalcitonin 0.10 ng/mL (0.00-0.10) Urine Collection Type Unknown Urine Color Yellow Urine Clarity Clear Urine pH 5.5 Urine Specific [place] 1.025 Urine Protein Negative mg/dL (NEG-TRACE) Urine Glucose (UA) Negative mg/dL (NEG) Urine Ketones (Stick) Negative mg/dL (NEG) Urine Blood Negative (NEG) Urine Nitrite Negative (NEG) Urine Bilirubin Negative (NEG) Urine Urobilinogen Dipstick 0.2 mg/dL (0.2 mg/dL) Urine Leukocyte Esterase Negative (NEG) Urine RBC Occ /HPF (0-2) Urine WBC 1-4 /HPF (0-4) Urine Squamous Epithelial Cells Few /LPF Urine Bacteria 0 /HPF (0-FEW) Urine Mucus Marked /LPF Sodium Level 142 mmol/L (136-145) Potassium Level 3.7 mmol/L (3.5-5.1) Chloride Level 106 mmol/L (98-107) Carbon Dioxide Level 29 mmol/L (21-32) Anion Gap 7 (6-14) Blood Urea Nitrogen 14 mg/dL (8-26) Creatinine 0.9 mg/dL (0.7-1.3) Estimated GFR (Cockcroft-Gault) 100.9 Glucose Level 119 mg/dL (70-99) Calcium Level 8.9 mg/dL (8.5-10.1) Laboratory Tests Test 10/22/19 02:30 10/22/19 04:30 Urine Collection Type Unknown Urine Color Yellow Urine Clarity Clear Urine pH 5.5 Urine Specific [place] 1.025 Urine Protein Negative mg/dL (NEG-TRACE) Urine Glucose (UA) Negative mg/dL (NEG) Urine Ketones (Stick) Negative mg/dL (NEG) Urine Blood Negative (NEG) Urine Nitrite Negative (NEG) Urine Bilirubin Negative (NEG) Urine Urobilinogen Dipstick 0.2 mg/dL (0.2 mg/dL) Urine Leukocyte Esterase Negative (NEG) Urine RBC Occ /HPF (0-2) Urine WBC 1-4 /HPF (0-4) Urine Squamous Epithelial Cells Few /LPF Urine Bacteria 0 /HPF (0-FEW) Urine Mucus Marked /LPF White Blood Count 9.5 x10^3/uL (4.0-11.0) Red Blood Count 4.12 x10^6/uL (4.30-5.70) Hemoglobin 11.6 g/dL (13.0-17.5) Hematocrit 35.1 % (39.0-53.0) Mean Corpuscular Volume 85 fL (79-100) Mean Corpuscular Hemoglobin 28 pg (25-35) Mean Corpuscular Hemoglobin Concent 33 g/dL (31-37) Red Cell Distribution Width 13.9 % (11.5-14.5) Platelet Count 355 x10^3/uL (140-400) Sodium Level 142 mmol/L (136-145) Potassium Level 3.7 mmol/L (3.5-5.1) Chloride Level 106 mmol/L (98-107) Carbon Dioxide Level 29 mmol/L (21-32) Anion Gap 7 (6-14) Blood Urea Nitrogen 14 mg/dL (8-26) Creatinine 0.9 mg/dL (0.7-1.3) Estimated GFR (Cockcroft-Gault) 100.9 Glucose Level 119 mg/dL (70-99) Calcium Level 8.9 mg/dL (8.5-10.1) Medications Current Medications Acetaminophen (Tylenol Supp) 650 mg PRN Q4HRS PRN VA TEMP OVER 100.4F OR MILD PAIN; Start 10/15/19 at 21:00 Albuterol Sulfate (Ventolin Neb Soln) 2.5 mg PRN Q4HRS PRN NEB SHORTNESS OF BREATH Last administered on 10/16/19at 07:40; Start 10/15/19 at 21:00; Stop 10/16/19 at 07:53; Status DC Sodium Chloride 1,000 ml @ 75 mls/hr [id number] IV Last administered on 10/19/19at 21:41; Start 10/15/19 at 22:00; Stop 10/20/19 at 12:16; Status DC Famotidine (Pepcid Vial) 20 mg QHS IVP Last administered on 10/21/19at 20:43; Start 10/15/19 at 21:00 Fentanyl Citrate (Fentanyl 2ml Vial) 50 mcg PRN Q2HR PRN IVP SEVERE PAIN 7-10 Last administered on 10/21/19at 23:24; Start 10/15/19 at 21:00 Ondansetron HCl (Zofran) 4 mg PRN Q6HRS PRN IVP NAUSEA/VOMITING 1ST CHOICE; Start 10/15/19 at 21:00 Labetalol HCl (Normodyne Iv Push) 10 mg PRN Q2HR PRN IVP HYPERTENSION Last administered on 10/17/19 04:27; Start 10/15/19 at 21:00 Ceftriaxone Sodium (Rocephin) 1 gm Q24H IVP Last administered on 10/17/19 22:10; Start 10/15/19 at 22:00; Stop 10/18/19 at 11:21; Status DC Azithromycin 250 mg/Sodium Chloride 250 ml @ 250 mls/hr Q24H IV Last administered on 10/17/19at 22:11; Start 10/15/19 at 22:00; Stop 10/18/19 at 11:21; Status DC Benzocaine (Hurricaine One) 1 spray PRN QID PRN MM PAIN Last administered on 10/15/19at 22:06; Start 10/15/19 at 21:30; Stop 10/16/19 at 07:46; Status DC Influenza Virus Vaccine Quadrival (Afluria Quad 2019-20 (3yr Up) Syringe) 0.5 ml ONCE ONCE VAX IM ; Start 10/16/19 at 09:00; Stop 10/16/19 at 09:01; Status DC Phenol (Chloraseptic) 1 spray PRN Q2HR PRN PO SORE THROAT; Start 10/16/19 at 07:45; Status Cancel Phenol (Chloraseptic) 1 spray PRN Q2HR PRN PO SORE THROAT; Start 10/16/19 at 08:00 Albuterol Sulfate (Ventolin Neb Soln) 2.5 mg Q4H NEB Last administered on 10/21/19at 23:13; Start 10/16/19 at 12:00 Labetalol HCl (Normodyne Iv Push) 10 mg PRN Q2HR PRN IVP HYPERTENSION; Start 10/16/19 at 09:15; Stop 10/16/19 at 10:40; Status DC Iohexol (Omnipaque 300 Mg/ml) 400 ml 1X ONCE VA Last administered on 10/16/19at 10:45; Start 10/16/19 at 10:45; Stop 10/16/19 at 10:46; Status DC Info (CONTRAST GIVEN -- Rx MONITORING) 1 each PRN DAILY PRN MC SEE COMMENTS; Start 10/16/19 at 10:45; Stop 10/18/19 at 10:44; Status DC Magnesium Citrate (Citroma) 296 ml 1X ONCE NG Last administered on 10/16/19at 19:08; Start 10/16/19 at 18:45; Stop 10/16/19 at 18:46; Status DC Bisacodyl (Dulcolax Tab) 10 mg 1X ONCE PO ; Start 10/17/19 at 10:30; Stop 10/17/19 at 07:26; Status DC Methylnaltrexone [place] (Relistor) 12 mg 1X ONCE SQ Last administered on 10/17/19at 10:01; Start 10/17/19 at 07:30; Stop 10/17/19 at 07:31; Status DC Polyethylene Glycol (miraLAX PACKET) 17 gm DAILY PO Last administered on 10/17/19at 07:57; Start 10/17/19 at 09:00 Simethicone (Gas-X) 80 mg PRN AFTMEALHC PRN PO GAS / BLOATING Last administered on 10/17/19at 10:00; Start 10/17/19 at 09:30 Bisacodyl (Dulcolax Tab) 10 mg 1X PRN PO CONSTIPATION Last administered on 10/17/19at 10:00; Start 10/17/19 at 09:45; Stop 10/19/19 at 14:29; Status DC Magnesium Citrate (Citroma) 296 ml 1X ONCE PO Last administered on 10/17/19at 18:19; Start 10/17/19 at 18:00; Stop 10/17/19 at 18:01; Status DC Piperacillin Sod/ Tazobactam Sod (Zosyn Per Pharmacy) 1 each PRN DAILY PRN MC SEE COMMENTS; Start 10/18/19 at 11:30; Stop 10/18/19 at 11:25; Status DC Meropenem 1 gm/ Sodium Chloride 100 ml @ 200 mls/hr Q8HRS IV Last administered on 10/20/19at 05:35; Start 10/18/19 at 14:00; Stop 10/20/19 at 14:06; Status DC Ringer's Solution 1,000 ml @ 75 mls/hr 1X ONCE IV Last administered on 10/18/19at 13:32; Start 10/18/19 at 13:30; Stop 10/19/19 at 02:49; Status DC Albuterol/ Ipratropium (Duoneb) 3 ml 1X ONCE NEB Last administered on 10/18/19at 13:45; Start 10/18/19 at 13:45; Stop 10/18/19 at 13:55; Status DC Propofol 40 ml @ As Directed STK-MED ONCE IV ; Start 10/18/19 at 13:57; Stop 10/18/19 at 13:57; Status DC Lactobacillus Rhamnosus (Culturelle) 1 cap BID PO Last administered on 10/21/19at 20:43; Start 10/19/19 at 21:00 Levofloxacin (Levaquin) 500 mg DAILY06 PO Last administered on 10/22/19at 06:09; Start 10/21/19 at 06:00 Methylnaltrexone [place] (Relistor) 12 mg 1X ONCE SQ Last administered on 10/21/19at 14:53; Start 10/21/19 at 13:30; Stop 10/21/19 at 13:31; Status DC Lidocaine (Lidoderm) 1 patch DAILY TD ; Start 10/21/19 at 22:00 Miscellaneous (Lidoderm Patch Removal) 1 ea QHS ; Start 10/21/19 at 21:00 Vitals/I & O Vital Sign - Last 24 Hours 10/21/19 10/21/19 10/21/19 10/21/19 08:00 10:57 11:00 15:00 Temp 99.1 98.7 99.1 98.7 Pulse 92 93 Resp 18 B/P (MAP) 156/91 (112) 141/92 (108) Pulse Ox 98 96 96 O2 Delivery Nasal Cannula Nasal Cannula Nasal Cannula Nasal Cannula O2 Flow Rate 1.0 1.0 1.0 1.0 10/21/19 10/21/19 10/21/19 1/6/20 19:00 20:00 20:03 22:00 Temp 98.0 98.0 98.0 98.0 Pulse 97 94 Resp 18 18 B/P (MAP) 157/93 (114) 160/98 (118) Pulse Ox 95 98 96 O2 Delivery Nasal Cannula Room Air Nasal Cannula Nasal Cannula O2 Flow Rate 1.0 1.0 1.0 10/21/19 10/21/19 10/21/19 10/22/19 23:13 23:24 23:54 03:00 Temp 98.0 98.0 Pulse 89 Resp 20 20 18 B/P (MAP) 155/93 (113) Pulse Ox 98 98 95 O2 Delivery Nasal Cannula Nasal Cannula Nasal Cannula Nasal Cannula O2 Flow Rate 1.0 1.0 1.0 Intake and Output 10/21/19 10/21/19 10/22/19 15:00 23:00 07:00 Intake Total 620 ml 320 ml Balance 620 ml 320 ml Hemodynamically unstable?: No Is patient in severe pain?: Yes Is NPO status required?: Yes KEIKO ACOSTA MD Oct 22, 2019 08:00
[2019-10-22 08:28] LABS: ALBUMIN 2.3 g/dL (3.4-5.0); DIRECT BILIRUBIN 0.2 mg/dL (0.0-0.2); TOTAL BILIRUBIN 0.6 mg/dL (0.2-1.0); TOTAL PROTEIN 6.1 g/dL (6.4-8.2)
[2019-10-22] MEDS: POLYETHYLENE GLYCOL 3350 17 GM PACKET. PO SCH (09:00)
[2019-10-22] MEDS: LACTOBACILLUS RHAMNOSUS GG 1 CAPSULE. PO SCH ×2 (09:15→21:11)
[2019-10-22] MEDS: PSYLLIUM HUSK (SUGAR FREE) 1 PKT PACKET PO SCH (09:15)
--- NOTE | 2019-10-22 09:17 | PDOC ---
Infectious Disease Note Subjective Subjective walking the halls Tolerating full liquids + BM Still quite distended, but BETTER No c/o F/C/N/V ROS ROS no n/v/d/ Vital Sign Vital Signs Vital Signs Date Time Temp Pulse Resp B/P (MAP) Pulse Ox O2 Delivery O2 Flow Rate FiO2 10/22/19 09:01 95 Nasal Cannula 1.0 10/22/19 07:00 97.8 94 18 146/90 (108) 97.8 Physical Exam PHYSICAL EXAM GENERAL: The patient is propped up in bed, alert, and in no apparent distress. HEENT: Pupils are equally round. Small subconjunctival hemorrhage on the right. Oropharynx pink and moist, no lesions. NECK: Supple. LUNGS: Clear. HEART: S1, S2. ABDOMEN: Very distended, somewhat firm, and nontender. bowel sounds present EXTREMITIES: 1+ edema BLE, SKIN: Warm to touch. No signs of rash. NEUROLOGIC: Alert and oriented x 3. PIV Labs Lab Laboratory Tests Test 10/22/19 02:30 10/22/19 04:30 Urine Collection Type Unknown Urine Color Yellow Urine Clarity Clear Urine pH 5.5 Urine Specific [place] 1.025 Urine Protein Negative mg/dL (NEG-TRACE) Urine Glucose (UA) Negative mg/dL (NEG) Urine Ketones (Stick) Negative mg/dL (NEG) Urine Blood Negative (NEG) Urine Nitrite Negative (NEG) Urine Bilirubin Negative (NEG) Urine Urobilinogen Dipstick 0.2 mg/dL (0.2 mg/dL) Urine Leukocyte Esterase Negative (NEG) Urine RBC Occ /HPF (0-2) Urine WBC 1-4 /HPF (0-4) Urine Squamous Epithelial Cells Few /LPF Urine Bacteria 0 /HPF (0-FEW) Urine Mucus Marked /LPF White Blood Count 9.5 x10^3/uL (4.0-11.0) Red Blood Count 4.12 x10^6/uL (4.30-5.70) Hemoglobin 11.6 g/dL (13.0-17.5) Hematocrit 35.1 % (39.0-53.0) Mean Corpuscular Volume 85 fL (79-100) Mean Corpuscular Hemoglobin 28 pg (25-35) Mean Corpuscular Hemoglobin Concent 33 g/dL (31-37) Red Cell Distribution Width 13.9 % (11.5-14.5) Platelet Count 355 x10^3/uL (140-400) Sodium Level 142 mmol/L (136-145) Potassium Level 3.7 mmol/L (3.5-5.1) Chloride Level 106 mmol/L (98-107) Carbon Dioxide Level 29 mmol/L (21-32) Anion Gap 7 (6-14) Blood Urea Nitrogen 14 mg/dL (8-26) Creatinine 0.9 mg/dL (0.7-1.3) Estimated GFR (Cockcroft-Gault) 100.9 Glucose Level 119 mg/dL (70-99) Calcium Level 8.9 mg/dL (8.5-10.1) Total Bilirubin 0.6 mg/dL (0.2-1.0) Direct Bilirubin 0.2 mg/dL (0.0-0.2) Aspartate Amino Transf (AST/SGOT) 42 U/L (15-37) Alanine Aminotransferase (ALT/SGPT) 58 U/L (16-63) Alkaline Phosphatase 55 U/L (46-116) Total Protein 6.1 g/dL (6.4-8.2) Albumin 2.3 g/dL (3.4-5.0) Lipase 250 U/L (73-393) Objective Assessment H. influenzae bacteremia from 10/16 at [facility] Colonic ileus s/p decompressive colonoscopy, ? ischemia s/p biopsy, 10/18. No surgical plans Leukocytosis - improved Plan Plan of Care cont po levaquin Probiotics D/w at bedside D/w nursing d/w KALE TROY MD Oct 22, 2019 09:17
--- NOTE | 2019-10-22 09:36 | PDOC ---
Subjective: Subjective: Feels better. Less SOA. Abd is softer, has stooled. Tolerating full liquids. Objective: Objective: D/w nurse - had a couple more stools - "filled the toilet" - liquid greenish. Abd is softer. Had Relistor yesterday. Vital Signs: Vital Signs Date Time Temp Pulse Resp B/P (MAP) Pulse Ox O2 Delivery O2 Flow Rate FiO2 10/22/19 09:01 95 Nasal Cannula 1.0 10/22/19 07:00 97.8 94 18 146/90 (108) 97.8 Labs: Laboratory Tests Test 10/22/19 02:30 10/22/19 04:30 Urine Collection Type Unknown Urine Color Yellow Urine Clarity Clear Urine pH 5.5 Urine Specific [place] 1.025 Urine Protein Negative mg/dL Urine Glucose (UA) Negative mg/dL Urine Ketones (Stick) Negative mg/dL Urine Blood Negative Urine Nitrite Negative Urine Bilirubin Negative Urine Urobilinogen Dipstick 0.2 mg/dL Urine Leukocyte Esterase Negative Urine RBC Occ /HPF Urine WBC 1-4 /HPF Urine Squamous Epithelial Cells Few /LPF Urine Bacteria 0 /HPF Urine Mucus Marked /LPF White Blood Count 9.5 x10^3/uL Red Blood Count 4.12 x10^6/uL Hemoglobin 11.6 g/dL Hematocrit 35.1 % Mean Corpuscular Volume 85 fL Mean Corpuscular Hemoglobin 28 pg Mean Corpuscular Hemoglobin Concent 33 g/dL Red Cell Distribution Width 13.9 % Platelet Count 355 x10^3/uL Sodium Level 142 mmol/L Potassium Level 3.7 mmol/L Chloride Level 106 mmol/L Carbon Dioxide Level 29 mmol/L Anion Gap 7 Blood Urea Nitrogen 14 mg/dL Creatinine 0.9 mg/dL Estimated GFR (Cockcroft-Gault) 100.9 Glucose Level 119 mg/dL Calcium Level 8.9 mg/dL Total Bilirubin 0.6 mg/dL Direct Bilirubin 0.2 mg/dL Aspartate Amino Transf (AST/SGOT) 42 U/L Alanine Aminotransferase (ALT/SGPT) 58 U/L Alkaline Phosphatase 55 U/L Total Protein 6.1 g/dL Albumin 2.3 g/dL Lipase 250 U/L PE: GEN: NAD LUNGS: NC HEART: RRR ABD: maybe less distention, softer - more normal bowel sounds to left NEURO/PSYCH: A & O 3 A/P: Colonic ileus H. influenzae bacteremia -- Awaiting x-ray. Hemodynamically unstable?: No Is patient in severe pain?: Yes Is NPO status required?: Yes CANDACE CRAIG Oct 22, 2019 09:36
[2019-10-22 11:00] VITALS: BP_SYST 147; BP_SYST 173; BP_DIAS 71; BP_DIAS 81
[2019-10-22 13:11] LABS: IMMUNOGLOBULIN A 199 mg/dL (61-437); IMMUNOGLOBULIN G 928 mg/dL (700-1600); IMMUNOGLOBULIN M 49 mg/dL (20-172)
--- NOTE | 2019-10-22 13:17 | NUR ---
SW following. Discussed with RN, pt is from home, no PT/OT needs, no IV abx needs, full liquid diet, waiting on stool cultures from colon biopsy. RN advised no SW needs.
--- NOTE | 2019-10-22 14:01 | PDOC ---
Provider Note Provider Note Pt not seen. in restroom Hemodynamically unstable?: No Is patient in severe pain?: Yes Is NPO status required?: Yes LUIS WALKER MD Oct 22, 2019 14:01
[2019-10-22 15:00] VITALS: BP 152/91
--- NOTE | 2019-10-22 15:49 | RAD ---
Examination: ACUTE ABDOMEN SERIES History: Colonic ileus Comparison/Correlation: 10/20/2019 CT chest abdomen pelvis without contrast Findings: Frontal view of the chest was obtained. Supine and upright views of the abdomen were obtained. Elevation of right hemidiaphragm is notable. No pneumothorax. No infiltrate. Fluid levels are present within the colon. Distended small bowel loops noted. Multiple distended small bowel loops are present with a diameter of up to 4.4 cm. No extraluminal gas. Pelvic calcifications compatible with phleboliths noted. Impression: No infiltrate. Fluid levels within large and small bowel which may represent ileus or possibly large bowel obstruction. Consider continued follow-up. No significant change in the interval. Electronically signed by: Luis Alberto Vargas MD (10/22/2019 3:46 PM) [facility]
[2019-10-22 19:15] VITALS: BP 142/88
[2019-10-22] MEDS: PATCH REMOVAL. MC SCH (21:00)
[2019-10-22] MEDS: FAMOTIDINE 20 MG TABLET. PO SCH (21:11)
[2019-10-22 23:50] VITALS: BP 148/82
[2019-10-23] MEDS: fentaNYL PF VIAL 100 MCG/2 ML VIAL IVP PRN ×2 (00:21→23:51)
[2019-10-23] MEDS: ALBUTEROL SULFATE 2.5 MG/3 ML NEBU. NEB SCH ×7 (00:24→23:44)
[2019-10-23 03:31] VITALS: BP 144/80
[2019-10-23 07:00] VITALS: BP 145/82
--- NOTE | 2019-10-23 07:36 | PDOC ---
PROGRESS NOTES Chief Complaint Chief Complaint A/P: SEVERE ILEUS, SLOW TO RESOLVE< Colonoscopy reveals dilated cecum with ulceration suggestive of ischemic colitis - neg barium enema study RECENT CONSTIPATION HX GOUT NO signif abd hx, no signif past medical hx ct abd prior to admit [facility] ER suggested RLL Consolidation plan ct chest, abd, pelvis psa esr consult pulm medicine STOOL OVA/PARASITES SPE/IPE NOTES TRAVEL TO [facility] IN AUG 2019, VACATION X 5-6 DAYS, No symptoms until Sep History of Present Illness History of Present Illness Mr Ennis is a 69y M w/ PMHx gout initially seen at [facility] with a 4-day history of constipation, abdominal distention, and bloating. A CT abdomen/pelvis with contrast demonstrated diffuse gaseous dilatation of the colon consistent with ileus/pseudoobstruction. NG tube was placed, and he was transferred to [place] for further evaluation and treatment. He underwent a decompressive colonoscopy 10/18/2019 with segmental colitis/ulcers suggestive of ischemia notedand biopsy taken. [place] was notified of blood cultures positive for gram-negative rods, now identified with Haemophilus influenzae (sensitive to ceftriaxone, ciprofloxacin, and meropenem) colonic ileus with decompressive colonoscopy, findings concerning for ischemic colitis in cecum. 10/21: Still bloated today, had 2 bowel movement overnight. He and his spouse are concerned about lack of progress and frustrated with no formal diagnosis. D/w GI not appropriate or safe for discharge. 10/22: Feeling back pain overnight. Colon biopsy results: "Sections of the cecal biopsy reveal colonic mucosa showing acute inflammation and hemorrhage within the lamina propria. The findings are suggestive of an acute infectious colitis. Focally, there are a few shrunken glands within the area of acute inflammation and hemorrhage such that I cannot exclude the possibility of an acute ischemic colitis. Overall he is feeling better, cough still present. Final culture on H. influenza from [facility] shows susceptibility to ciprofloxacin, has been on levofloxacin. He is eating regular food, tolerating well. PLAN: Awaiting stool culture, ova/ parasites ESR elevated SPE/IPE not elevated Procalcitonin negative Vitals Vitals Vital Signs Date Time Temp Pulse Resp B/P (MAP) Pulse Ox O2 Delivery O2 Flow Rate FiO2 10/23/19 07:26 97 Room Air 10/23/19 03:31 98.1 84 18 144/80 (101) 98.1 10/23/19 00:51 0.5 Physical Exam Physical Exam GENERAL: The patient is propped up in bed, alert, and in no apparent distress. HEENT: Pupils are equally round. Small subconjunctival hemorrhage on the right. Oropharynx pink and moist, no lesions. NECK: Supple. LUNGS: Clear. HEART: S1, S2. ABDOMEN: Very distended, somewhat firm, and nontender. bowel sounds present EXTREMITIES: 1+ edema BLE, SKIN: Warm to touch. No signs of rash. NEUROLOGIC: Alert and oriented x 3. PIV General: Alert, Oriented X3, Cooperative, No acute distress Heart: Regular rate, Normal S1, Normal S2 Lungs: Clear Abdomen: Normal bowel sounds, No tenderness, Other (distended, soft, tense) Extremities: No clubbing, No cyanosis Skin: No rashes Comment Review of Relevant I have reviewed the following items priscilla (where applicable) has been applied. Labs Laboratory Tests Test 10/22/19 02:30 10/22/19 04:30 Urine Collection Type Unknown Urine Color Yellow Urine Clarity Clear Urine pH 5.5 Urine Specific [place] 1.025 Urine Protein Negative mg/dL (NEG-TRACE) Urine Glucose (UA) Negative mg/dL (NEG) Urine Ketones (Stick) Negative mg/dL (NEG) Urine Blood Negative (NEG) Urine Nitrite Negative (NEG) Urine Bilirubin Negative (NEG) Urine Urobilinogen Dipstick 0.2 mg/dL (0.2 mg/dL) Urine Leukocyte Esterase Negative (NEG) Urine RBC Occ /HPF (0-2) Urine WBC 1-4 /HPF (0-4) Urine Squamous Epithelial Cells Few /LPF Urine Bacteria 0 /HPF (0-FEW) Urine Mucus Marked /LPF White Blood Count 9.5 x10^3/uL (4.0-11.0) Red Blood Count 4.12 x10^6/uL (4.30-5.70) Hemoglobin 11.6 g/dL (13.0-17.5) Hematocrit 35.1 % (39.0-53.0) Mean Corpuscular Volume 85 fL (79-100) Mean Corpuscular Hemoglobin 28 pg (25-35) Mean Corpuscular Hemoglobin Concent 33 g/dL (31-37) Red Cell Distribution Width 13.9 % (11.5-14.5) Platelet Count 355 x10^3/uL (140-400) Sodium Level 142 mmol/L (136-145) Potassium Level 3.7 mmol/L (3.5-5.1) Chloride Level 106 mmol/L (98-107) Carbon Dioxide Level 29 mmol/L (21-32) Anion Gap 7 (6-14) Blood Urea Nitrogen 14 mg/dL (8-26) Creatinine 0.9 mg/dL (0.7-1.3) Estimated GFR (Cockcroft-Gault) 100.9 Glucose Level 119 mg/dL (70-99) Calcium Level 8.9 mg/dL (8.5-10.1) Total Bilirubin 0.6 mg/dL (0.2-1.0) Direct Bilirubin 0.2 mg/dL (0.0-0.2) Aspartate Amino Transf (AST/SGOT) 42 U/L (15-37) Alanine Aminotransferase (ALT/SGPT) 58 U/L (16-63) Alkaline Phosphatase 55 U/L (46-116) Total Protein 6.1 g/dL (6.4-8.2) Albumin 2.3 g/dL (3.4-5.0) Lipase 250 U/L (73-393) Medications Current Medications Acetaminophen (Tylenol Supp) 650 mg PRN Q4HRS PRN CO TEMP OVER 100.4F OR MILD P AIN; Start 10/15/19 at 21:00 Albuterol Sulfate (Ventolin Neb Soln) 2.5 mg PRN Q4HRS PRN NEB SHORTNESS OF BREATH Last administered on 10/16/19at 07:40; Start 10/15/19 at 21:00; Stop 10/16/19 at 07:53; Status DC Sodium Chloride 1,000 ml @ 75 mls/hr [id number] IV Last administered on 10/19/19at 21:41; Start 10/15/19 at 22:00; Stop 10/20/19 at 12:16; Status DC Famotidine (Pepcid Vial) 20 mg QHS IVP Last administered on 10/21/19at 20:43; Start 10/15/19 at 21:00; Stop 10/22/19 at 09:37; Status DC Fentanyl Citrate (Fentanyl 2ml Vial) 50 mcg PRN Q2HR PRN IVP SEVERE PAIN 7-10 Last administered on 10/23/19at 00:21; Start 10/15/19 at 21:00 Ondansetron HCl (Zofran) 4 mg PRN Q6HRS PRN IVP NAUSEA/VOMITING 1ST CHOICE; Start 10/15/19 at 21:00 Labetalol HCl (Normodyne Iv Push) 10 mg PRN Q2HR PRN IVP HYPERTENSION Last administered on 10/17/19at 04:27; Start 10/15/19 at 21:00 Ceftriaxone Sodium (Rocephin) 1 gm Q24H IVP Last administered on 10/17/19at 22:10; Start 10/15/19 at 22:00; Stop 10/18/19 at 11:21; Status DC Azithromycin 250 mg/Sodium Chloride 250 ml @ 250 mls/hr Q24H IV Last administered on 10/17/19at 22:11; Start 10/15/19 at 22:00; Stop 10/18/19 at 11:21; Status DC Benzocaine (Hurricaine One) 1 spray PRN QID PRN MM PAIN Last administered on 10/15/19at 22:06; Start 10/15/19 at 21:30; Stop 10/16/19 at 07:46; Status DC Influenza Virus Vaccine Quadrival (Afluria Quad 2019-20 (3yr Up) Syringe) 0.5 ml ONCE ONCE VAX IM ; Start 10/16/19 at 09:00; Stop 10/16/19 at 09:01; Status DC Phenol (Chloraseptic) 1 spray PRN Q2HR PRN PO SORE THROAT; Start 10/16/19 at 07:45; Status Cancel Phenol (Chloraseptic) 1 spray PRN Q2HR PRN PO SORE THROAT; Start 10/16/19 at 08:00 Albuterol Sulfate (Ventolin Neb Soln) 2.5 mg Q4H NEB Last administered on 10/23/19at 07:25; Start 10/16/19 at 12:00 Labetalol HCl (Normodyne Iv Push) 10 mg PRN Q2HR PRN IVP HYPERTENSION; Start 10/16/19 at 09:15; Stop 10/16/19 at 10:40; Status DC Iohexol (Omnipaque 300 Mg/ml) 400 ml 1X ONCE CO Last administered on 10/16/19at 10:45; Start 10/16/19 at 10:45; Stop 10/16/19 at 10:46; Status DC Info (CONTRAST GIVEN -- Rx MONITORING) 1 each PRN DAILY PRN MC SEE COMMENTS; Start 10/16/19 at 10:45; Stop 10/18/19 at 10:44; Status DC Magnesium Citrate (Citroma) 296 ml 1X ONCE NG Last administered on 10/16/19at 19:08; Start 10/16/19 at 18:45; Stop 10/16/19 at 18:46; Status DC Bisacodyl (Dulcolax Tab) 10 mg 1X ONCE PO ; Start 10/17/19 at 10:30; Stop 10/17/19 at 07:26; Status DC Methylnaltrexone [place] (Relistor) 12 mg 1X ONCE SQ Last administered on 10/17/19at 10:01; Start 10/17/19 at 07:30; Stop 10/17/19 at 07:31; Status DC Polyethylene Glycol (miraLAX PACKET) 17 gm DAILY PO Last administered on 10/17/19at 07:57; Start 10/17/19 at 09:00 Simethicone (Gas-X) 80 mg PRN AFTMEALHC PRN PO GAS / BLOATING Last administered on 10/17/19at 10:00; Start 10/17/19 at 09:30 Bisacodyl (Dulcolax Tab) 10 mg 1X PRN PO CONSTIPATION Last administered on 10/17/19at 10:00; Start 10/17/19 at 09:45; Stop 10/19/19 at 14:29; Status DC Magnesium Citrate (Citroma) 296 ml 1X ONCE PO Last administered on 10/17/19at 18:19; Start 10/17/19 at 18:00; Stop 10/17/19 at 18:01; Status DC Piperacillin Sod/ Tazobactam Sod (Zosyn Per Pharmacy) 1 each PRN DAILY PRN MC SEE COMMENTS; Start 10/18/19 at 11:30; Stop 10/18/19 at 11:25; Status DC Meropenem 1 gm/ Sodium Chloride 100 ml @ 200 mls/hr Q8HRS IV Last administered on 10/20/19at 05:35; Start 10/18/19 at 14:00; Stop 10/20/19 at 14:06; Status DC Ringer's Solution 1,000 ml @ 75 mls/hr 1X ONCE IV Last administered on 10/18/19at 13:32; Start 10/18/19 at 13:30; Stop 10/19/19 at 02:49; Status DC Albuterol/ Ipratropium (Duoneb) 3 ml 1X ONCE NEB Last administered on 10/18/19at 13:45; Start 10/18/19 at 13:45; Stop 10/18/19 at 13:55; Status DC Propofol 40 ml @ As Directed STK-MED ONCE IV ; Start 10/18/19 at 13:57; Stop 10/18/19 at 13:57; Status DC Lactobacillus Rhamnosus (Culturelle) 1 cap BID PO Last administered on 10/22/19at 21:11; Start 10/19/19 at 21:00 Levofloxacin (Levaquin) 500 mg DAILY06 PO Last administered on 10/23/19at 06:12; Start 10/21/19 at 06:00 Methylnaltrexone [place] (Relistor) 12 mg 1X ONCE SQ Last administered on 10/21/19at 14:53; Start 10/21/19 at 13:30; Stop 10/21/19 at 13:31; Status DC Lidocaine (Lidoderm) 1 patch DAILY TD ; Start 10/21/19 at 22:00 Miscellaneous (Lidoderm Patch Removal) 1 ea QHS MC ; Start 10/21/19 at 21:00 Psyllium Hydrophilic Mucilloid (Metamucil Fiber Packet) 1 pkt DAILY PO Last administered on 10/22/19at 09:15; Start 10/22/19 at 09:00 Famotidine (Pepcid) 20 mg QHS PO Last administered on 10/22/19at 21:11; Start 10/22/19 at 21:00 Vitals/I & O Vital Sign - Last 24 Hours 10/22/19 10/22/19 10/22/19 10/22/19 08:00 09:01 11:00 12:06 Temp 98.1 98.1 Pulse 82 Resp 16 B/P (MAP) 147/81 (103) Pulse Ox 95 95 95 O2 Delivery Room Air Nasal Cannula Room Air Nasal Cannula O2 Flow Rate 1.0 1.0 1.0 1/7/20 1/7/20 1/7/20 1/7/20 15:00 16:04 19:15 20:00 Temp 98.1 98.8 98.1 98.8 Pulse 89 88 Resp 16 20 B/P (MAP) 152/91 (111) 142/88 (106) Pulse Ox 96 96 O2 Delivery Room Air Nasal Cannula Room Air Room Air O2 Flow Rate 0.5 10/22/19 10/22/19 10/23/19 10/23/19 21:47 23:50 00:21 00:25 Temp 98.2 98.2 Pulse 91 Resp 18 20 B/P (MAP) 148/82 (104) Pulse Ox 94 96 98 O2 Delivery Nasal Cannula Room Air Room Air Nasal Cannula O2 Flow Rate 0.5 0.5 0.5 10/23/19 10/23/19 10/23/19 00:51 03:31 07:26 Temp 98.1 98.1 Pulse 84 Resp 18 18 B/P (MAP) 144/80 (101) Pulse Ox 98 94 97 O2 Delivery Room Air Room Air Room Air O2 Flow Rate 0.5 Intake and Output 10/22/19 10/22/19 10/23/19 15:00 23:00 07:00 Intake Total 250 ml 200 ml Balance 250 ml 200 ml Hemodynamically unstable?: No Is patient in severe pain?: Yes Is NPO status required?: Yes KEIKO ACOSTA MD Oct 23, 2019 07:36
--- NOTE | 2019-10-23 08:43 | PDOC ---
Infectious Disease Note Subjective Subjective walking the halls Tolerating full liquids + BM Still quite distended, but BETTER No c/o F/C/N/V Vital Sign Vital Signs Vital Signs Date Time Temp Pulse Resp B/P (MAP) Pulse Ox O2 Delivery O2 Flow Rate FiO2 10/23/19 07:26 97 Room Air 10/23/19 07:00 98.1 104 16 145/82 (103) 98.1 10/23/19 00:51 0.5 Physical Exam PHYSICAL EXAM GENERAL: The patient is propped up in bed, alert, and in no apparent distress. HEENT: Pupils are equally round. Small subconjunctival hemorrhage on the right. Oropharynx pink and moist, no lesions. NECK: Supple. LUNGS: Clear. HEART: S1, S2. ABDOMEN: Very distended, somewhat firm, and nontender. bowel sounds present EXTREMITIES: 1+ edema BLE, SKIN: Warm to touch. No signs of rash. NEUROLOGIC: Alert and oriented x 3. PIV Objective Assessment H. influenzae bacteremia from 10/16 at [facility] Colonic ileus s/p decompressive colonoscopy, ? ischemia s/p biopsy, 10/18. No surgical plans Leukocytosis - improved Plan Plan of Care cont po levaquin Probiotics advance diet D/w at bedside D/w nursing d/w KALE TROY MD Oct 23, 2019 08:43
[2019-10-23] MEDS: PSYLLIUM HUSK (SUGAR FREE) 1 PKT PACKET PO SCH (09:00)
[2019-10-23] MEDS: POLYETHYLENE GLYCOL 3350 17 GM PACKET. PO SCH (09:00)
[2019-10-23] MEDS: LIDOCAINE (700MG/PATCH) PATCH. TD SCH (09:00)
--- NOTE | 2019-10-23 09:29 | PDOC ---
GI PROGRESS NOTES Date Date/Time DATE: 10/23/19 TIME: 09:10 Subjective Subjective clinical slow improvement in distension- with liquid stools- still unclear on trigger BUT with new onset and finding of + BC at [facility] for H influ is very curoius- acute pseudo obstruction in a previous normal patient with normal bowel pattern is very suggestive of infectious source- but honestly have not seen this with H influ before but certainly infections can trigger these events Objective Vitals Vital Signs Date Time Temp Pulse Resp B/P (MAP) Pulse Ox O2 Delivery O2 Flow Rate FiO2 10/23/19 07:26 97 Room Air 10/23/19 07:00 98.1 104 16 145/82 (103) 91 Room Air 98.1 10/23/19 03:31 98.1 84 18 144/80 (101) 94 Room Air 98.1 10/23/19 00:51 18 98 Room Air 0.5 10/23/19 00:25 98 Nasal Cannula 0.5 10/23/19 00:21 20 96 Room Air 0.5 10/22/19 23:50 98.2 91 18 148/82 (104) 94 Room Air 98.2 10/22/19 21:47 Nasal Cannula 0.5 10/22/19 20:00 Room Air 10/22/19 19:15 98.8 88 20 142/88 (106) 96 Room Air 98.8 10/22/19 16:04 Nasal Cannula 0.5 10/22/19 15:00 98.1 89 16 152/91 (111) 96 Room Air 98.1 10/22/19 12:06 95 Nasal Cannula 1.0 10/22/19 11:00 98.1 82 16 147/81 (103) 95 Room Air 98.1 Physical Exam Physical Exam Chest clear Abdomen soft, lA LITTLE less distended , no point tenderness (:*particularly no tenderness in RLQ) or rebound. Bowel sounds are decreased but present. Improved from yesterday Assessment Assessment Colonic ileus. Acute onset several days ago - unclear cause BUT bacteremia with H influ may be our best working diagnostic trigger. Plan Plan Will advance diet to soft today as tolerated Continue ambulating in the halls Monitor labs As long as he continues to pass gas or fluid we will await reduction in distention before suggesting discharge. Also discussed probiotics in outpt setting- VSL # 3 or Visbiome was suggested Hemodynamically unstable?: No Is patient in severe pain?: Yes Is NPO status required?: Yes MAU REYNOSO MD Oct 23, 2019 09:29
[2019-10-23] MEDS: LACTOBACILLUS RHAMNOSUS GG 1 CAPSULE. PO SCH ×2 (09:49→20:46)
[2019-10-23 11:00] VITALS: BP 139/80
--- NOTE | 2019-10-23 14:17 | PDOC ---
PULMONARY PROGRESS NOTES Subjective no soa had BM Vitals Vital Signs Date Time Temp Pulse Resp B/P (MAP) Pulse Ox O2 Delivery O2 Flow Rate FiO2 10/23/19 12:31 94 Room Air 10/23/19 11:00 98.5 91 16 139/80 (99) 98.5 10/23/19 00:51 0.5 General: Alert, No acute distress Lungs: Clear Cardiovascular: S1 Abdomen: Soft Neuro Exam: Alert Extremities: No Edema Skin: Warm Labs Laboratory Tests Test 10/22/19 02:30 10/22/19 04:30 Urine Collection Type Unknown Urine Color Yellow Urine Clarity Clear Urine pH 5.5 Urine Specific [place] 1.025 Urine Protein Negative mg/dL (NEG-TRACE) Urine Glucose (UA) Negative mg/dL (NEG) Urine Ketones (Stick) Negative mg/dL (NEG) Urine Blood Negative (NEG) Urine Nitrite Negative (NEG) Urine Bilirubin Negative (NEG) Urine Urobilinogen Dipstick 0.2 mg/dL (0.2 mg/dL) Urine Leukocyte Esterase Negative (NEG) Urine RBC Occ /HPF (0-2) Urine WBC 1-4 /HPF (0-4) Urine Squamous Epithelial Cells Few /LPF Urine Bacteria 0 /HPF (0-FEW) Urine Mucus Marked /LPF White Blood Count 9.5 x10^3/uL (4.0-11.0) Red Blood Count 4.12 x10^6/uL (4.30-5.70) Hemoglobin 11.6 g/dL (13.0-17.5) Hematocrit 35.1 % (39.0-53.0) Mean Corpuscular Volume 85 fL (79-100) Mean Corpuscular Hemoglobin 28 pg (25-35) Mean Corpuscular Hemoglobin Concent 33 g/dL (31-37) Red Cell Distribution Width 13.9 % (11.5-14.5) Platelet Count 355 x10^3/uL (140-400) Sodium Level 142 mmol/L (136-145) Potassium Level 3.7 mmol/L (3.5-5.1) Chloride Level 106 mmol/L (98-107) Carbon Dioxide Level 29 mmol/L (21-32) Anion Gap 7 (6-14) Blood Urea Nitrogen 14 mg/dL (8-26) Creatinine 0.9 mg/dL (0.7-1.3) Estimated GFR (Cockcroft-Gault) 100.9 Glucose Level 119 mg/dL (70-99) Calcium Level 8.9 mg/dL (8.5-10.1) Total Bilirubin 0.6 mg/dL (0.2-1.0) Direct Bilirubin 0.2 mg/dL (0.0-0.2) Aspartate Amino Transf (AST/SGOT) 42 U/L (15-37) Alanine Aminotransferase (ALT/SGPT) 58 U/L (16-63) Alkaline Phosphatase 55 U/L (46-116) Total Protein 6.1 g/dL (6.4-8.2) Albumin 2.3 g/dL (3.4-5.0) Lipase 250 U/L (73-393) Impression . 1. Right middle lobe, right lower lobe atelectasis, collapse secondary to elevation of the right hemidiaphragm. 2. Elevation of the right hemidiaphragm related to abdominal distention. 3. Recent H. influenza. 4. Colonic ileus, status post decompressive colonoscopy. 5. Leukocytosis, improved. Plan . 1. From my standpoint of view, I recommend continue support with incentive spirometry. 2. P.r.n. nebulized treatments. 3. PO antibiotics PER Infectious Disease Service. 4. repeat cxr in am I do appreciate the privilege in sharing in the patient's care. LUIS WALKER MD Oct 23, 2019 14:17
[2019-10-23 15:00] VITALS: BP 138/85
[2019-10-23 15:11] LABS: FREE PSA/PSA RATIO 5.6 % (.); PSA FREE 1.59 ng/mL; PSA TOTAL 28.4 ng/mL (0.0-4.0)
[2019-10-23 19:00] VITALS: BP 145/82
[2019-10-23] MEDS ORDERED: guaiFENesin DM 200MG/20MG 10 ML SYRUP PO PRN (19:15)
[2019-10-23] MEDS ORDERED: BENZOCAINE/MENTHOL LOZENGE. PO PRN (19:15)
[2019-10-23] MEDS: FAMOTIDINE 20 MG TABLET. PO SCH (20:46)
[2019-10-23] MEDS: PATCH REMOVAL. MC SCH (21:00)
[2019-10-23 23:00] VITALS: BP 153/82
[2019-10-24 03:00] VITALS: BP 140/74
[2019-10-24] MEDS: ALBUTEROL SULFATE 2.5 MG/3 ML NEBU. NEB SCH ×3 (03:42→11:51)
[2019-10-24 07:00] VITALS: BP 145/80
[2019-10-24] MEDS: LACTOBACILLUS RHAMNOSUS GG 1 CAPSULE. PO SCH (08:49)
[2019-10-24] MEDS: PSYLLIUM HUSK (SUGAR FREE) 1 PKT PACKET PO SCH (08:49)
[2019-10-24] MEDS: POLYETHYLENE GLYCOL 3350 17 GM PACKET. PO SCH (08:49)
[2019-10-24] MEDS: LIDOCAINE (700MG/PATCH) PATCH. TD SCH (08:49)
--- NOTE | 2019-10-24 09:20 | PDOC ---
Infectious Disease Note Subjective Subjective feeling good, ROS ROS no n/v/d/sob Vital Sign Vital Signs Vital Signs Date Time Temp Pulse Resp B/P (MAP) Pulse Ox O2 Delivery O2 Flow Rate FiO2 10/24/19 07:00 98.9 96 18 145/80 (101) 91 Room Air 98.9 Physical Exam PHYSICAL EXAM GENERAL: The patient is propped up in bed, alert, and in no apparent distress. HEENT: Pupils are equally round. Small subconjunctival hemorrhage on the right. Oropharynx pink and moist, no lesions. NECK: Supple. LUNGS: Clear. HEART: S1, S2. ABDOMEN: Very distended, somewhat firm, and nontender. bowel sounds present EXTREMITIES: 1+ edema BLE, SKIN: Warm to touch. No signs of rash. NEUROLOGIC: Alert and oriented x 3. PIV Objective Assessment H. influenzae bacteremia from 10/16 at [facility] Colonic ileus s/p decompressive colonoscopy, ? ischemia s/p biopsy, 10/18. No surgical plans Leukocytosis - improved Plan Plan of Care d/c levaquin after today dose Probiotics advance diet D/w nursing d/w GI ok to d/c home KALE HALL MD Oct 24, 2019 09:20
--- NOTE | 2019-10-24 09:59 | PDOC ---
Subjective: Subjective: Feels better - feels well enough to go home. Would like to have specific recommendations written down for what he should do at home as far Metamucil and Miralax go. Does plan to take probiotics. Would like to know his diagnosis. Objective: Objective: D/w Dr. Corona. Stopping Levaquin after today. Vital Signs: Vital Signs Date Time Temp Pulse Resp B/P (MAP) Pulse Ox O2 Delivery O2 Flow Rate FiO2 10/24/19 07:00 98.9 96 18 145/80 (101) 91 Room Air 98.9 Labs: Diagnosis: Colonic mucosa, cecum biopsy: - Acute colitis. See comment. Comment: Sections of the cecal biopsy reveal colonic mucosa showing acute inflammation and hemorrhage within the lamina propria. The findings are suggestive of an acute infectious colitis. Focally, there are a few shrunken glands within the area of acute inflammation and hemorrhage such that I cannot exclude the pos sibility of an acute ischemic colitis. PE: GEN: NAD - sitting on edge of bed - was in restroom when I first stopped by - he saved stool for me to see - soft dark brown stool in toilet LUNGS: RA, clear anteriorly HEART: RRR ABD: distention - less, quiet bowel sounds, non-tender NEURO/PSYCH: A & O 3 A/P: Colonic ileus H. influenzae bacteremia -- Improved - tolerating diet and stooling, distention gradually improving. Path from colitis as above. Okay to DC per GI - Dr. Kulkarni to see before he leaves. Hemodynamically unstable?: No Is patient in severe pain?: No Is NPO status required?: No TOMA-CANDACE MURRAY Oct 24, 2019 09:59
[2019-10-24 11:00] VITALS: BP 147/81
--- NOTE | 2019-10-24 12:24 | PDOC ---
PULMONARY PROGRESS NOTES Subjective no soa had BM Vitals Vital Signs Date Time Temp Pulse Resp B/P (MAP) Pulse Ox O2 Delivery O2 Flow Rate FiO2 10/24/19 11:00 98.5 93 18 147/81 (103) 95 Room Air 98.5 General: Alert, No acute distress Lungs: Clear Cardiovascular: S1 Abdomen: Soft Neuro Exam: Alert Extremities: No Edema Skin: Warm Impression . 1. Right middle lobe, right lower lobe atelectasis, collapse secondary to elevation of the right hemidiaphragm. 2. Elevation of the right hemidiaphragm related to abdominal distention. 3. Recent H. influenza. 4. Colonic ileus, status post decompressive colonoscopy. 5. Leukocytosis, improved. Plan . 1. From my standpoint of view, I recommend continue support with incentive spirometry. clinically better 2. P.r.n. nebulized treatments. 3. PO antibiotics PER Infectious Disease Service. 4. repeat cxr today before discharge d/w LUIS EPPS MD Oct 24, 2019 12:24
--- NOTE | 2019-10-24 13:57 | PDOC ---
PROGRESS NOTES Chief Complaint Chief Complaint A/P: SEVERE ILEUS, SLOW TO RESOLVE< Colonoscopy reveals dilated cecum with ulceration suggestive of ischemic colitis - neg barium enema study RECENT CONSTIPATION HX GOUT NO signif abd hx, no signif past medical hx ct abd prior to admit [facility] ER suggested RLL Consolidation plan ct chest, abd, pelvis psa esr consult pulm medicine STOOL OVA/PARASITES SPE/IPE NOTES TRAVEL TO [facility] IN AUG 2019, VACATION X 5-6 DAYS, No symptoms until Sep History of Present Illness History of Present Illness Mr Ennis is a 69y M w/ PMHx gout initially seen at [facility] with a 4-day history of constipation, abdominal distention, and bloating. A CT abdomen/pelvis with contrast demonstrated diffuse gaseous dilatation of the colon consistent with ileus/pseudoobstruction. NG tube was placed, and he was transferred to [place] for further evaluation and treatment. He underwent a decompressive colonoscopy 10/18/2019 with segmental colitis/ulcers suggestive of ischemia notedand biopsy taken. [place] was notified of blood cultures positive for gram-negative rods, now identified with Haemophilus influenzae (sensitive to ceftriaxone, ciprofloxacin, and meropenem) colonic ileus with decompressive colonoscopy, findings concerning for ischemic colitis in cecum. 10/21: Still bloated today, had 2 bowel movement overnight. He and his spouse are concerned about lack of progress and frustrated with no formal diagnosis. D/w GI not appropriate or safe for discharge. 10/22: Feeling back pain overnight. Colon biopsy results: "Sections of the cecal biopsy reveal colonic mucosa showing acute inflammation and hemorrhage within the lamina propria. The findings are suggestive of an acute infectious colitis. Focally, there are a few shrunken glands within the area of acute inflammation and hemorrhage such that I cannot exclude the possibility of an acute ischemic colitis. 10/23: Overall he is feeling better, cough still present. Final culture on H. influenza from [facility] shows susceptibility to ciprofloxacin, has been on levofloxacin. He is eating regular food, tolerating well. Feeling better, stool results negative. Less distended PLAN: Awaiting stool culture, ova/ parasites ESR elevated SPE/IPE not elevated Procalcitonin negative Vitals Vitals Vital Signs Date Time Temp Pulse Resp B/P (MAP) Pulse Ox O2 Delivery O2 Flow Rate FiO2 10/24/19 11:00 98.5 93 18 147/81 (103) 95 Room Air 98.5 Physical Exam Physical Exam GENERAL: The patient is propped up in bed, alert, and in no apparent distress. HEENT: Pupils are equally round. Small subconjunctival hemorrhage on the right. Oropharynx pink and moist, no lesions. NECK: Supple. LUNGS: Clear. HEART: S1, S2. ABDOMEN: Very distended, somewhat firm, and nontender. bowel sounds present EXTREMITIES: 1+ edema BLE, SKIN: Warm to touch. No signs of rash. NEUROLOGIC: Alert and oriented x 3. PIV General: Alert, Oriented X3, Cooperative, No acute distress Heart: Regular rate, Normal S1, Normal S2 Lungs: Clear Abdomen: Normal bowel sounds, No tenderness, Other (distended, soft, tense) Extremities: No clubbing, No cyanosis Skin: No rashes Comment Review of Relevant I have reviewed the following items priscilla (where applicable) has been applied. Labs Microbiology 10/22/19 Stool Culture - Final, Resulted 10/22/19 Stool Culture Result 1 ([facility]) - Final, Resulted 10/22/19 Campylobacter Antigen Assay - Preliminary, Resulted 10/22/19 Campylobactor Result 1 - Preliminary, Resulted 10/22/19 Shiga Toxin Test, Resulted Pending Medications Current Medications Acetaminophen (Tylenol Supp) 650 mg PRN Q4HRS PRN [place] TEMP OVER 100.4F OR MILD PAIN; Start 10/15/19 at 21:00 Albuterol Sulfate (Ventolin Neb Soln) 2.5 mg PRN Q4HRS PRN NEB SHORTNESS OF BREATH Last administered on 10/16/19at 07:40; Start 10/15/19 at 21:00; Stop 10/16/19 at 07:53; Status DC Sodium Chloride 1,000 ml @ 75 mls/hr [id number] IV Last administered on 10/19/19at 21:41; Start 10/15/19 at 22:00; Stop 10/20/19 at 12:16; Status DC Famotidine (Pepcid Vial) 20 mg QHS IVP Last administered on 10/21/19at 20:43; Start 10/15/19 at 21:00; Stop 10/22/19 at 09:37; Status DC Fentanyl Citrate (Fentanyl 2ml Vial) 50 mcg PRN Q2HR PRN IVP SEVERE PAIN 7-10 Last administered on 10/23/19at 23:51; Start 10/15/19 at 21:00 Ondansetron HCl (Zofran) 4 mg PRN Q6HRS PRN IVP NAUSEA/VOMITING 1ST CHOICE; Start 10/15/19 at 21:00 Labetalol HCl (Normodyne Iv Push) 10 mg PRN Q2HR PRN IVP HYPERTENSION Last administered on 10/17/19at 04:27; Start 10/15/19 at 21:00 Ceftriaxone Sodium (Rocephin) 1 gm Q24H IVP Last administered on 10/17/19at 22:10; Start 10/15/19 at 22:00; Stop 10/18/19 at 11:21; Status DC Azithromycin 250 mg/Sodium Chloride 250 ml @ 250 mls/hr Q24H IV Last administered on 10/17/19at 22:11; Start 10/15/19 at 22:00; Stop 10/18/19 at 11:21; Status DC Benzocaine (Hurricaine One) 1 spray PRN QID PRN MM PAIN Last administered on 10/15/19at 22:06; Start 10/15/19 at 21:30; Stop 10/16/19 at 07:46; Status DC Influenza Virus Vaccine Quadrival (Afluria Quad 2019-20 (3yr Up) Syringe) 0.5 ml ONCE ONCE VAX IM ; Start 10/16/19 at 09:00; Stop 10/16/19 at 09:01; Status DC Phenol (Chloraseptic) 1 spray PRN Q2HR PRN PO SORE THROAT; Start 10/16/19 at 07:45; Status Cancel Phenol (Chloraseptic) 1 spray PRN Q2HR PRN PO SORE THROAT; Start 10/16/19 at 08:00 Albuterol Sulfate (Ventolin Neb Soln) 2.5 mg Q4H NEB Last administered on 0at 06:54; Start 10/16/19 at 12:00 Labetalol HCl (Normodyne Iv Push) 10 mg PRN Q2HR PRN IVP HYPERTENSION; Start 10/16/19 at 09:15; Stop 10/16/19 at 10:40; Status DC Iohexol (Omnipaque 300 Mg/ml) 400 ml 1X ONCE [place] Last administered on 10/16/19at 10:45; Start 10/16/19 at 10:45; Stop 10/16/19 at 10:46; Status DC Info (CONTRAST GIVEN -- Rx MONITORING) 1 each PRN DAILY PRN MC SEE COMMENTS; Start 10/16/19 at 10:45; Stop 10/18/19 at 10:44; Status DC Magnesium Citrate (Citroma) 296 ml 1X ONCE NG Last administered on 10/16/19at 19:08; Start 10/16/19 at 18:45; Stop 10/16/19 at 18:46; Status DC Bisacodyl (Dulcolax Tab) 10 mg 1X ONCE PO ; Start 10/17/19 at 10:30; Stop 10/17/19 at 07:26; Status DC Methylnaltrexone [place] (Relistor) 12 mg 1X ONCE SQ Last administered on at 10:01; Start 10/17/19 at 07:30; Stop 10/17/19 at 07:31; Status DC Polyethylene Glycol (miraLAX PACKET) 17 gm DAILY PO Last administered on 10/24/19at 08:49; Start 10/17/19 at 09:00 Simethicone (Gas-X) 80 mg PRN AFTMEALHC PRN PO GAS / BLOATING Last administered on 10/17/19at 10:00; Start 10/17/19 at 09:30 Bisacodyl (Dulcolax Tab) 10 mg 1X PRN PO CONSTIPATION Last administered on 10/17/19at 10:00; Start 10/17/19 at 09:45; Stop 10/19/19 at 14:29; Status DC Magnesium Citrate (Citroma) 296 ml 1X ONCE PO Last administered on 10/17/19at 18:19; Start 10/17/19 at 18:00; Stop 10/17/19 at 18:01; Status DC Piperacillin Sod/ Tazobactam Sod (Zosyn Per Pharmacy) 1 each PRN DAILY PRN MC SEE COMMENTS; Start 10/18/19 at 11:30; Stop 10/18/19 at 11:25; Status DC Meropenem 1 gm/ Sodium Chloride 100 ml @ 200 mls/hr Q8HRS IV Last administered on 10/20/19at 05:35; Start 10/18/19 at 14:00; Stop 10/20/19 at 14:06; Status DC Ringer's Solution 1,000 ml @ 75 mls/hr 1X ONCE IV Last administered on 10/18/19at 13:32; Start 10/18/19 at 13:30; Stop 10/19/19 at 02:49; Status DC Albuterol/ Ipratropium (Duoneb) 3 ml 1X ONCE NEB Last administered on 10/18/19at 13:45; Start 10/18/19 at 13:45; Stop 10/18/19 at 13:55; Status DC Propofol 40 ml @ As Directed STK-MED ONCE IV ; Start 10/18/19 at 13:57; Stop 10/18/19 at 13:57; Status DC Lactobacillus Rhamnosus (Culturelle) 1 cap BID PO Last administered on 10/24/19at 08:49; Start 10/19/19 at 21:00 Levofloxacin (Levaquin) 500 mg DAILY06 PO Last administered on 10/24/19at 06:13; Start 10/21/19 at 06:00 Methylnaltrexone [place] (Relistor) 12 mg 1X ONCE SQ Last administered on 10/21/19at 14:53; Start 10/21/19 at 13:30; Stop 10/21/19 at 13:31; Status DC Lidocaine (Lidoderm) 1 patch DAILY TD ; Start 10/21/19 at 22:00 Miscellaneous (Lidoderm Patch Removal) 1 ea QHS MC ; Start 10/21/19 at 21:00 Psyllium Hydrophilic Mucilloid (Metamucil Fiber Packet) 1 pkt DAILY PO Last administered on 10/24/19at 08:49; Start 10/22/19 at 09:00 Famotidine (Pepcid) 20 mg QHS PO Last administered on 10/23/19at 20:46; Start 10/22/19 at 21:00 Throat Lozenges (Cepacol Sore Throat Lozenge) 1 madonna PRN Q2HRS PRN PO SORE THROAT Last administered on 10/23/19 19:23; Start 10/23/19 at 19:15 Guaifenesin (Robitussin Dm) 10 ml PRN Q6HRS PRN PO COUGH Last administered on 10/23/19at 19:23; Start 1/8/20 at 19:15 Active Scripts Active No Active Prescriptions or Reported Medications Vitals/I & O Vital Sign - Last 24 Hours 10/23/19 10/23/19 10/23/19 10/23/19 15:00 16:25 19:00 19:35 Temp 98.3 98.3 98.3 98.3 Pulse 91 94 Resp 18 18 B/P (MAP) 138/85 (102) 145/82 (103) Pulse Ox 93 96 93 95 O2 Delivery Room Air Room Air Room Air Room Air 10/23/19 10/23/19 10/23/19 10/23/19 20:00 23:00 23:43 23:51 Temp 98.4 98.4 Pulse 95 Resp 18 20 B/P (MAP) 153/82 (105) Pulse Ox 93 93 O2 Delivery Room Air Room Air Room Air Room Air 10/24/19 10/24/19 10/24/19 10/24/19 00:21 03:00 03:41 06:54 Temp 98.3 98.3 Pulse 90 Resp 20 18 B/P (MAP) 140/74 (96) Pulse Ox 96 94 95 O2 Delivery Room Air Room Air Room Air Room Air 10/24/19 10/24/19 07:00 11:00 Temp 98.9 98.5 98.9 98.5 Pulse 96 93 Resp 18 18 B/P (MAP) 145/80 (101) 147/81 (103) Pulse Ox 91 95 O2 Delivery Room Air Room Air Intake and Output 10/23/19 10/23/19 10/24/19 15:00 23:00 07:00 Output Total 1 ml Balance -1 ml Hemodynamically unstable?: No Is patient in severe pain?: No Is NPO status required?: No KEIKO ACOSTA MD Oct 24, 2019 13:57
--- NOTE | 2019-10-24 13:58 | PDOC3 ---
Discharge Summary Visit Information Date of Admission: Oct 15, 2019 Date of Discharge: Oct 24, 2019 Admitting Diagnosis: Ileus Final Diagnosis Ileus Brief Hospital Course Allergies Allergies Coded Allergies Type Severity Reaction Last Updated Verified No Known Drug Allergies 10/18/19 No Vital Signs Vital Signs Date Time Temp Pulse Resp B/P (MAP) Pulse Ox O2 Delivery O2 Flow Rate FiO2 10/24/19 11:00 98.5 93 18 147/81 (103) 95 Room Air 98.5 Brief Hospital Course Mr Ennis is a 69y M w/ PMHx gout initially seen at [facility] with a 4-day history of constipation, abdominal distention, and bloating. A CT abdomen/pelvis with contrast demonstrated diffuse gaseous dilatation of the colon consistent with ileus/pseudoobstruction. NG tube was placed, and he was transferred to [place] for further evaluation and treatment. He underwent a decompressive colonoscopy 10/18/2019 with segmental colitis/ulcers suggestive of ischemia notedand biopsy taken. [place] was notified of blood cultures positive for gram-negative rods, now identified with Haemophilus influenzae (sensitive to ceftriaxone, ciprofloxacin, and meropenem) colonic ileus with decompressive colonoscopy, findings concerning for ischemic colitis in cecum. 10/21: Still bloated today, had 2 bowel movement overnight. He and his spouse are concerned about lack of progress and frustrated with no formal diagnosis. D/w GI not appropriate or safe for discharge. 10/22: Feeling back pain overnight. Colon biopsy results: "Sections of the cecal biopsy reveal colonic mucosa showing acute inflammation and hemorrhage within the lamina propria. The findings are suggestive of an acute infectious colitis. Focally, there are a few shrunken glands within the area of acute inflammation and hemorrhage such that I cannot exclude the possibility of an acute ischemic colitis. 10/23: Overall he is feeling better, cough still present. Final culture on H. influenza from [facility] shows susceptibility to ciprofloxacin, has been on levofloxacin. He is eating regular food, tolerating well. Consulted ID, Pulm, GI Feeling better, stool results negative. Less distended Problem list SEVERE ILEUS, SLOW TO RESOLVE< Colonoscopy reveals dilated cecum with ulceration suggestive of ischemic colitis - neg barium enema study RECENT CONSTIPATION HX GOUT NO signif abd hx, no signif past medical hx ct abd prior to admit [facility] ER suggested RLL Consolidation Severe protein calorie malnutrition NOTES TRAVEL TO [facility] IN AUG 2019, VACATION X 5-6 DAYS, No symptoms until Sep PLAN: D/c home with supportive care Discharge Information Condition at Discharge: Improved Follow Up: Weeks Disposition/Orders: D/C to Home No Active Prescriptions or Reported Meds Hemodynamically unstable?: No Is patient in severe pain?: No Is NPO status required?: No KEIKO ACOSTA MD Oct 24, 2019 13:58
--- NOTE | 2019-10-24 14:35 | RAD ---
CHEST AP ONLY Clinical Indication: Pneumonia follow-up Comparison: 10/20/2019 CT chest abdomen pelvis without contrast. Findings: Portable upright frontal view of the chest was obtained. Limited pulmonary inflation noted. Heart size and pulmonary vasculature are normal. Minimal right pleural effusion noted. No significant infiltrate identified. Minimal right basilar atelectasis corresponds to the findings noted. Gaseous distention of bowel is seen. IMPRESSION: Minimal right pleural effusion and minimal right basilar atelectasis. Electronically signed by: Luis Alberto Vargas MD (10/24/2019 2:32 PM) [facility]
== END 2019-10-24 15:09 | disposition home or self-care (01) | DRG 871 ==
LOC: 4 NORTH 20:20
PROVIDERS: ADMIT Internal Medicine; ATTEND Internal Medicine
PROC: 0D9670Z Drainage of Stomach with Drainage Device, Via Natural or Artificial Opening (ICD-10-PCS; principal; 2019-10-16)
PROC: 0DBH8ZX Excision of Cecum, Via Natural or Artificial Opening Endoscopic, Diagnostic (ICD-10-PCS; 2019-10-18 14:30)
DX: A41.9 Sepsis, unspecified organism (principal); E43 Unspecified severe protein-calorie malnutrition; K55.9 Vascular disorder of intestine, unspecified; K56.7 Ileus, unspecified; K59.39 Other megacolon; J98.11 Atelectasis; Z16.11 Resistance to penicillins; J90 Pleural effusion, not elsewhere classified; K63.3 Ulcer of intestine; K56.609 Unspecified intestinal obstruction, unspecified as to partial versus complete obstruction; A09 Infectious gastroenteritis and colitis, unspecified; M10.9 Gout, unspecified; K63.89 Other specified diseases of intestine; B96.3 Hemophilus influenzae [H. influenzae] as the cause of diseases classified elsewhere; K57.30 Diverticulosis of large intestine without perforation or abscess without bleeding; K43.9 Ventral hernia without obstruction or gangrene; K40.20 Bilateral inguinal hernia, without obstruction or gangrene, not specified as recurrent; M51.9 Unspecified thoracic, thoracolumbar and lumbosacral intervertebral disc disorder; Z68.27 Body mass index [BMI] 27.0-27.9, adult; Z87.891 Personal history of nicotine dependence
CPT/HCPCS: 36415; 45378; 45380; 71045; 71250; 74018; 74022; 74176; 74270; 80048; 80053; 80076; 81001; 82378; 83690; 84145; 84153; 84154; 84166; 85007; 85025; 85027; 85610; 85651; 86334; 87045; 87328; 88305; 90471; 90686; 94640; 94760; J0456; J0696; J2185; J2212; J2704; J3010; J3490; J7030; J7050; J7120; J7613; J7620; Q9967; G0378